=== PATIENT | male | born 1965 | race Caucasian/White ===

== ENCOUNTER 2020-03-01 08:46 | Outpatient (REF) | payer OTHER, SELFPAY ==
[2020-03-01 09:44] LABS: Estimated Average Glucose 126 mg/dL
[2020-03-01 10:00] LABS: Creatinine Urine 187.94 mg/dL
[2020-03-01 14:05] LABS: Alanine Aminotransferase 47 U/L (0-40); Albumin Level 4.6 g/dL (3.5-5.0); Alkaline Phosphatase 55 U/L (39-117); Anion Gap 12 (12-20); Aspartate Amino Transferase 25 U/L (5-37); Bilirubin Total 1.5 mg/dL (0.0-1.0); Blood Urea Nitrogen 15 mg/dL (9-16); Calcium 8.8 mg/dL (8.4-10.2); Carbon Dioxide 26 mmol/L (22-29); Chloride 104 mmol/L (96-108); Estimated Glomerular Filt Rate > 60; Glucose Fasting 126 mg/dL (60-99); Potassium 4.2 mmol/l (3.3-5.1); Sodium 138 mmol/L (135-145); Total Protein 7.4 g/dL (6.5-8.0)
[2020-03-01 14:27] LABS: Free T4 (Free Thyroxine) 1.05 ng/dL (0.71-1.85); Thyroid Stimulating Hormone 6.65 uIU/mL (0.32-4.0)
== END 2020-03-01 08:47 | disposition home or self-care (01) ==
LOC: HO.10HDL 08:46
PROVIDERS: PCP Internal Medicine; Visit Provider Internal Medicine
DX: E11.65 Type 2 diabetes mellitus with hyperglycemia (principal); E03.9 Hypothyroidism, unspecified
CPT/HCPCS: 80053; 82043; 83036; 84439; 84443

== ENCOUNTER 2020-06-02 08:40 | Outpatient (REF) | payer OTHER, SELFPAY ==
[2020-06-02 10:13] LABS: MANUAL DIFF FLAG NO
[2020-06-02 10:18] LABS: Basophils Percent Auto 0.3 % (0-2); Eosinophils Absolute Auto 0.2 X10*3/uL (0.0-0.4); Eosinophils Percent Auto 3.2 % (0-4); Hemoglobin 14.2 g/dl (14.0-18.0); Imm Gran Abs Auto 0.03 X10*3/uL (0.00-0.03); Imm Gran Pct Auto 0.5 % (0.0-0.4); Lymphocytes Percent Auto 31.4 % (20-40); Mean Corpuscular HGB Conc 33.8 g/dl (31.0-36.0); Mean Corpuscular Volume 82.7 fL (80-98); Mean Platelet Volume 10.3 fL (9.4-12.4); Monocytes Absolute Auto 0.4 X10*3/uL (0.1-1.2); Neutrophils Absolute Auto 3.6 X10*3/uL (2.0-8.3); Neutrophils Percent Auto 57.6 % (45-73); Platelet Count 181 X10*3/uL (160-400); Red Blood Count 5.08 X10*6/uL (4.60-5.80); Red Cell Distribution Width 12.3 % (11.0-16.0); White Blood Count 6.3 X10*3/uL (4.8-10.8)
[2020-06-02 10:28] LABS: Estimated Average Glucose 128 mg/dL; Hemoglobin A1c % 6.1 %
[2020-06-02 10:51] LABS: Alanine Aminotransferase 42 U/L (0-40); Albumin Level 4.2 g/dL (3.5-5.0); Alkaline Phosphatase 62 U/L (39-117); Anion Gap 12 (12-20); Aspartate Amino Transferase 22 U/L (5-37); Blood Urea Nitrogen 22 mg/dL (9-16); Calcium 8.8 mg/dL (8.4-10.2); Carbon Dioxide 24 mmol/L (22-29); Chloride 106 mmol/L (96-108); Cholesterol 156 mg/dL; Estimated Glomerular Filt Rate > 60; Glucose Fasting 155 mg/dL (60-99); HDL Cholesterol 26 mg/dL; LDL Cholesterol Calculated 63 mg/dl; Potassium 4.2 mmol/L (3.3-5.1); Sodium 138 mmol/L (135-145); Total Protein 7.1 g/dL (6.5-8.0); Triglycerides 338 mg/dL
[2020-06-02 11:13] LABS: Free T4 (Free Thyroxine) 0.84 ng/dL (0.71-1.85); Prostate Specific Antigen Scr 0.82 ng/mL (<0.05-4.0)
[2020-06-02 11:31] LABS: Creatinine Urine 113.89 mg/dL; Microalbum/Creatinine Ratio Ur 12.2 ug/mg cr
== END 2020-06-02 08:41 | disposition home or self-care (01) ==
LOC: HO.10HDL 08:40
PROVIDERS: Visit Provider Internal Medicine
DX: Z00.00 Encounter for general adult medical examination without abnormal findings (principal); E11.9 Type 2 diabetes mellitus without complications; E03.9 Hypothyroidism, unspecified; E78.00 Pure hypercholesterolemia, unspecified; R35.1 Nocturia; Z12.5 Encounter for screening for malignant neoplasm of prostate
CPT/HCPCS: 36415; 80053; 80061; 82043; 83036; 84153; 84439; 84443; 85025

== ENCOUNTER 2020-08-26 06:57 | Day surgery (SDC) | payer OTHER, SELFPAY ==
[2020-08-26 07:23] VITALS: BP 153/92; PULSE 94; RESP 16; TEMP 36.2; O2SAT 97; BMI 34.0
--- NOTE | 2020-08-26 07:36 | HO.ANESPROP2 ---
[facility] Past Medical History Medical History HTN (hypertension) Hyperthyroidism Type II diabetes mellitus Surgical History Surgical History History of tonsillectomy Social History Social History Patient Tobacco Use Status: Former Tobacco user Quit Date: 2000 Tobacco use type: Cigarette Years Smoked: 5 Smoked in Last 30 Days: No Use of substances other than those prescribed or required for medical reasons: No Are you DNR?: No Advance Directives: No Advance Directives Information Provided: Yes Meds Allergies Allergy/AdvReac Type Severity Reaction Status Date / Time cefepime [CEFEPIME] Allergy Severe HIVES Verified 08/26/20 07:18 daptomycin [DAPTOMYCIN] Allergy Severe pulmonary Verified 08/26/20 07:18 interstitial pneumonitis levofloxacin [LEVOFLOXACIN] Allergy Intermediate HIVES Verified 08/26/20 07:18 piperacillin [From ZOSYN] Allergy Unknown rash Verified 08/26/20 07:18 Sulfa (Sulfonamide Allergy Unknown UNKNOWN Verified 08/26/20 07:18 Antibiotics) [SULFA (SULFONAMIDE ANTIBIOTICS)] tazobactam [From ZOSYN] Allergy Unknown rash Verified 08/26/20 07:18 Home Medications Medication Instructions Recorded Confirmed Last Taken Type ammonium lactate appl TOPICAL BID 08/26/20 Unknown History blood sugar diagnostic [FreeStyle 08/26/20 08/26/20 Unknown History Lite Strips] insulin glargine [Lantus U-100 15 unit SUBCUT BEDTIME 08/26/20 08/26/20 Unknown History Insulin] insulin syringe-needle U-100 08/26/20 08/26/20 Unknown History insulin syringe-needle U-100 [Easy 08/26/20 08/26/20 Unknown History Touch Insulin Syringe] lancets [FreeStyle Lancets] 08/26/20 08/26/20 Unknown History levothyroxine 1 tab PO DAILY 08/26/20 08/26/20 Unknown History metformin 1 tab PO TID 08/26/20 08/26/20 Unknown History metformin 1 tab PO TID 08/26/20 08/26/20 Unknown History pravastatin 1 tab PO DAILY 08/26/20 08/26/20 Unknown History Exam Exam Date and Time: August 26, 2020 0736 Height,Weight and Vital Signs: Height 6 ft 2 in Weight 120.202 kg Last Vital Signs Temp 97.1 F 08/26/20 07:23 Pulse 94 08/26/20 07:23 Resp 16 08/26/20 07:23 BP 153/92 H 08/26/20 07:23 Pulse Ox 97 08/26/20 07:23 Airway Mallampati Class: III TM Dist: >3cm Neck ROM: Full Heart: RRR Lungs: Dara
[2020-08-26] MEDS: Lactated Ringers 500 ML 20 ML IVCONT (07:40)
[2020-08-26 08:28] LABS: Glucose, Whole Blood 137 mg/dL (60-115)
--- NOTE | 2020-08-26 09:37 | P.BOP_ITS ---
Brief Operative Note Date of Service: 08/26/20 Pre-op diagnosis: Screening Post-op diagnosis: other (Colon polyps, Int/Ext Hemorrhoids, Diverticulosis) Procedure: Colonoscopy to the cecum with biopsy and removal of polyps Surgeon: Casey Jaeger Anesthesia: MAC Was an Astronomy Professor used for this Procedure?: No Estimated blood loss (mL): 4.0 Pathology: other (A. Polyp at 50cm B. Polyp at 20cm) Condition: stable Disposition: PACU
[2020-08-26 09:39] VITALS: BP 104/56; PULSE 91; RESP 16; TEMP 36.2; O2SAT 97
--- NOTE | 2020-08-26 09:42 | HO.POSTANES ---
Post Anesthesia Evaluation Post Anesthesia Evaluation Vital Signs: Vital Signs Temp Pulse Resp BP Pulse Ox 08/26/20 09:39 97.1 F 91 16 104/56 L 97 08/26/20 07:23 97.1 F 94 16 153/92 H 97 Anesthesia: Monitored Mental Status: Awake Pain Control: Satisfactory Nausea/Vomiting: None Hydration: Adequate Anesthesia-Related Issues: No Anes. Related Issues
[2020-08-26 09:55] VITALS: BP 135/86; PULSE 77; RESP 16; TEMP 36.7; O2SAT 100
--- NOTE | 2020-08-26 20:17 | OP_ITS ---
SURGEON: Casey Jaeger MD INDICATIONS: The patient presents for evaluation of colorectal cancer screening. Full consent obtained from him for this, including risks of bleeding and perforation. PREOPERATIVE DIAGNOSIS: Colorectal cancer screening. POSTOPERATIVE DIAGNOSIS: Colorectal cancer screening, small colon polyps, diverticulosis, internal and external hemorrhoids. PROCEDURE PERFORMED: Colonoscopy to cecum with biopsy and removal of polyps. ESTIMATED BLOOD LOSS: COMPLICATIONS: ANESTHESIA: Monitored anesthesia care. ASSISTANTS: SPECIMENS: DESCRIPTION OF PROCEDURE: The patient was placed in the left lateral decubitus position. The digital rectal exam revealed some external hemorrhoidal tissue as well as what appeared to be a somewhat prolapsing internal hemorrhoid. The Olympus video pediatric colonoscope was entered into the rectum and advanced easily to the cecum. Once in the cecum, I did identify normal-appearing cecal pouch with appendiceal orifice and a normal-appearing ileocecal valve. The entire cecum and ileocecal valve appeared normal. The scope was slowly withdrawn assessing all mucosal surfaces carefully. Preparation was excellent. At 50 and at 20 cm, were flat approximately 5 mm polyps, which were each biopsied and completely removed with cold biopsy forceps. I did not visualize any other polyps, colitis, or angiodysplasia. There was a mild amount of sigmoid diverticulosis. In the rectum, scope was retroflexed visualizing minimal internal hemorrhoids, but no other pathology. The scope was straightened and withdrawn from the patient. He tolerated the procedure well and was returned to the recovery area in stable condition. IMPRESSION: 1. Small colon polyp, status post biopsy removal. 2. Mild diverticulosis. 3. Internal and external hemorrhoids. PLAN: The results of the biopsy will be checked. If these are tubular adenomas, I would recommend a followup colonoscopy in 5 years. If they are both hyperplastic, I would recommend a followup colonoscopy in 10 years. At this point, he does not describe any complaints in regard to the hemorrhoids, but if they do become symptomatic, I would then recommend a referral to Dr. Fortune for further evaluation and treatment. MD CARLIE Vargas/RICHARDL / [id number]
== END 2020-08-26 11:20 | disposition home or self-care (01) ==
PROVIDERS: PCP Internal Medicine; Visit Provider Internal Medicine
PROC: 0DJD8ZZ Inspection of Lower Intestinal Tract, Via Natural or Artificial Opening Endoscopic (ICD-10-PCS; CPT 45378; principal; 2020-08-26 08:20)
DX: Z12.11 Encounter for screening for malignant neoplasm of colon (principal); K63.5 Polyp of colon; K57.30 Diverticulosis of large intestine without perforation or abscess without bleeding; K64.8 Other hemorrhoids; K64.4 Residual hemorrhoidal skin tags; I10 Essential (primary) hypertension; E05.90 Thyrotoxicosis, unspecified without thyrotoxic crisis or storm; E11.9 Type 2 diabetes mellitus without complications; Z79.4 Long term (current) use of insulin; Z79.899 Other long term (current) drug therapy; Z88.8 Allergy status to other drugs, medicaments and biological substances; Z88.2 Allergy status to sulfonamides; Z87.891 Personal history of nicotine dependence
CPT/HCPCS: 45380; 82947; 88305

== ENCOUNTER 2020-11-29 09:51 | Outpatient (REF) | payer OTHER, SELFPAY ==
[2020-11-29 10:29] LABS: MANUAL DIFF FLAG NO
[2020-11-29 10:35] LABS: Basophils Percent Auto 0.6 % (0-2); Eosinophils Absolute Auto 0.2 X10*3/uL (0.0-0.4); Eosinophils Percent Auto 3.3 % (0-4); Hematocrit 45.6 % (42-52); Hemoglobin 15.6 g/dl (14.0-18.0); Imm Gran Abs Auto 0.03 X10*3/uL (0.00-0.03); Imm Gran Pct Auto 0.5 % (0.0-0.4); Lymphocytes Absolute Auto 1.8 X10*3/uL (1.2-4.9); Lymphocytes Percent Auto 27.1 % (20-40); Mean Corpuscular HGB Conc 34.2 g/dl (31.0-36.0); Mean Corpuscular Hemoglobin 28.2 pg (27.0-33.0); Mean Corpuscular Volume 82.3 fL (80-98); Mean Platelet Volume 10.3 fL (9.4-12.4); Monocytes Absolute Auto 0.4 X10*3/uL (0.1-1.2); Monocytes Percent Auto 5.7 % (2-11); Neutrophils Absolute Auto 4.1 X10*3/uL (2.0-8.3); Neutrophils Percent Auto 62.8 % (45-73); Platelet Count 172 X10*3/uL (160-400); Red Blood Count 5.54 X10*6/uL (4.60-5.80); Red Cell Distribution Width 12.7 % (11.0-16.0); White Blood Count 6.5 X10*3/uL (4.8-10.8)
[2020-11-29 10:55] LABS: Estimated Average Glucose 131 mg/dL; Hemoglobin A1c % 6.2 %
[2020-11-29 11:18] LABS: Alanine Aminotransferase 35 U/L (0-40); Albumin Level 4.4 g/dL (3.5-5.0); Alkaline Phosphatase 57 U/L (39-117); Anion Gap 14 (12-20); Aspartate Amino Transferase 20 U/L (5-37); Bilirubin Total 1.3 mg/dL (0.0-1.0); Blood Urea Nitrogen 13 mg/dL (9-16); Calcium 8.9 mg/dL (8.4-10.2); Carbon Dioxide 21 mmol/L (22-29); Chloride 107 mmol/L (96-108); Cholesterol 185 mg/dL; Estimated Glomerular Filt Rate > 60; Glucose Fasting 130 mg/dL (60-99); HDL Cholesterol 40 mg/dL; LDL Cholesterol Calculated 102 mg/dl; Potassium 4.2 mmol/L (3.3-5.1); Sodium 138 mmol/L (135-145); Total Protein 7.1 g/dL (6.5-8.0); Triglycerides 215 mg/dL
[2020-11-29 11:29] LABS: Creatinine Urine 89.63 mg/dL; Microalbum/Creatinine Ratio Ur 22.3 ug/mg cr
[2020-11-29 11:41] LABS: Free T4 (Free Thyroxine) 1.01 ng/dL (0.71-1.85); Thyroid Stimulating Hormone 3.78 uIU/mL (0.32-4.0)
== END 2020-11-29 09:52 | disposition home or self-care (01) ==
LOC: HO.10HDL 09:51
PROVIDERS: Visit Provider Internal Medicine
DX: E11.9 Type 2 diabetes mellitus without complications (principal); E03.9 Hypothyroidism, unspecified; E78.5 Hyperlipidemia, unspecified
CPT/HCPCS: 36415; 80053; 80061; 82043; 83036; 84439; 84443; 85025

== ENCOUNTER 2021-04-10 10:28 | Outpatient (REF) | payer OTHER, SELFPAY ==
--- NOTE | ~2021-04-10 | XR_ITS ---
EXAMINATION: XR HAND, LEFT CLINICAL INFORMATION: Fall on ice. COMPARISON: None TECHNIQUE: PA, lateral, and oblique views of the left hand. FINDINGS: The bones and soft tissues are normal. No fracture. Alignment is anatomic. Joint spaces are maintained. No erosions or soft tissue calcifications. XR/XR hand LT min 3V IMPRESSION: Normal left hand.
== END 2021-04-10 10:29 | disposition home or self-care (01) ==
LOC: HO.XRAY 10:28
PROVIDERS: PCP Internal Medicine; Visit Provider Internal Medicine
DX: Z91.81 History of falling (principal)
CPT/HCPCS: 73130

== ENCOUNTER 2021-06-09 08:44 | Outpatient (REF) | payer OTHER, SELFPAY ==
[2021-06-09 09:07] LABS: MANUAL DIFF FLAG NO
[2021-06-09 09:36] LABS: Basophils Percent Auto 0.4 % (0-2); Eosinophils Absolute Auto 0.2 X10*3/uL (0.0-0.4); Eosinophils Percent Auto 2.5 % (0-4); Hemoglobin 15.6 g/dl (14.0-18.0); Imm Gran Abs Auto 0.06 X10*3/uL (0.00-0.03); Imm Gran Pct Auto 0.8 % (0.0-0.4); Lymphocytes Absolute Auto 2.1 X10*3/uL (1.2-4.9); Lymphocytes Percent Auto 28.9 % (20-40); Mean Corpuscular HGB Conc 33.2 g/dl (31.0-36.0); Mean Corpuscular Hemoglobin 27.6 pg (27.0-33.0); Mean Platelet Volume 10.1 fL (9.4-12.4); Monocytes Absolute Auto 0.5 X10*3/uL (0.1-1.2); Neutrophils Absolute Auto 4.4 x10*3/uL (2.0-8.3); Neutrophils Percent Auto 60.4 % (45-73); Platelet Count 185 X10*3/uL (160-400); Red Blood Count 5.66 X10*6/uL (4.60-5.80); Red Cell Distribution Width 12.7 % (11.0-16.0); White Blood Count 7.3 X10*3/uL (4.8-10.8)
[2021-06-09 10:05] LABS: Alanine Aminotransferase 40 U/L (0-40); Albumin Level 4.4 g/dL (3.5-5.0); Alkaline Phosphatase 66 U/L (39-117); Anion Gap 14 (12-20); Aspartate Amino Transferase 20 U/L (5-37); Bilirubin Total 1.3 mg/dL (0.0-1.0); Blood Urea Nitrogen 15 mg/dL (9-16); Calcium 9.4 mg/dL (8.4-10.2); Carbon Dioxide 22 mmol/L (22-29); Chloride 105 mmol/L (96-108); Estimated Glomerular Filt Rate > 60; Glucose Random 155 mg/dL (60-115); Potassium 4.4 mmol/L (3.3-5.1); Sodium 137 mmol/L (135-145); Total Protein 7.3 g/dL (6.5-8.0)
[2021-06-09 10:22] LABS: Creatinine Urine 177.75 mg/dL; Microalbum/Creatinine Ratio Ur 24.1 ug/mg cr
[2021-06-09 10:28] LABS: Free T4 (Free Thyroxine) 1.09 ng/dL (0.71-1.85); Thyroid Stimulating Hormone 5.19 uIU/mL (0.32-4.0)
[2021-06-09 10:29] LABS: Estimated Average Glucose 140 mg/dL; Hemoglobin A1c % 6.5 %
== END 2021-06-09 08:45 | disposition home or self-care (01) ==
LOC: HO.LAB 08:44
PROVIDERS: PCP Internal Medicine; Visit Provider Internal Medicine
DX: E03.9 Hypothyroidism, unspecified (principal); I10 Essential (primary) hypertension; E11.9 Type 2 diabetes mellitus without complications
CPT/HCPCS: 36415; 80053; 82043; 83036; 84439; 84443; 85025

== ENCOUNTER 2021-09-14 10:32 | Outpatient (REF) | payer OTHER, SELFPAY ==
[2021-09-14 12:24] LABS: Estimated Average Glucose 146 mg/dL; Hemoglobin A1c % 6.7 %
[2021-09-14 12:36] LABS: Alanine Aminotransferase 37 U/L (0-40); Albumin Level 4.6 g/dL (3.5-5.0); Alkaline Phosphatase 59 U/L (39-117); Anion Gap 15 (12-20); Aspartate Amino Transferase 21 U/L (5-37); Bilirubin Total 1.5 mg/dL (0.0-1.0); Blood Urea Nitrogen 15 mg/dL (9-16); Calcium 9.3 mg/dL (8.4-10.2); Carbon Dioxide 25 mmol/L (22-29); Chloride 104 mmol/L (96-108); Estimated Glomerular Filt Rate > 60; Glucose Random 145 mg/dL (60-115); Potassium 4.6 mmol/L (3.3-5.1); Sodium 139 mmol/L (135-145); Total Protein 7.5 g/dL (6.5-8.0)
[2021-09-14 12:46] LABS: Creatinine Urine 181.59 mg/dL; Microalbum/Creatinine Ratio Ur 27.5 ug/mg cr
[2021-09-14 12:48] LABS: Thyroid Stimulating Hormone 5.33 uIU/mL (0.32-4.0)
== END 2021-09-14 10:33 | disposition home or self-care (01) ==
LOC: HO.LAB 10:32
PROVIDERS: PCP Internal Medicine; Visit Provider Internal Medicine
DX: I10 Essential (primary) hypertension (principal); E11.9 Type 2 diabetes mellitus without complications; E03.9 Hypothyroidism, unspecified
CPT/HCPCS: 36415; 80053; 82043; 83036; 84439; 84443

== ENCOUNTER 2021-12-21 16:34 | Outpatient (REF) | payer OTHER, SELFPAY ==
[2021-12-21 18:02] LABS: Free T4 (Free Thyroxine) 1.13 ng/dL (0.71-1.85); Thyroid Stimulating Hormone 4.45 uIU/mL (0.32-4.0)
== END 2021-12-21 16:35 | disposition home or self-care (01) ==
LOC: HO.LAB 16:34
PROVIDERS: Visit Provider Internal Medicine
DX: E03.9 Hypothyroidism, unspecified (principal); E11.9 Type 2 diabetes mellitus without complications; I10 Essential (primary) hypertension
CPT/HCPCS: 36415; 84439; 84443

== ENCOUNTER 2022-03-20 13:55 | Outpatient (REF) | payer OTHER, SELFPAY ==
--- NOTE | ~2022-03-20 | XR_ITS ---
EXAMINATION: XR SINUS XR CHEST CLINICAL INFORMATION: Sinus pressure. Cough. COMPARISON: None TECHNIQUE: Sinus 5 views. Chest 2 views. FINDINGS: SINUS: There is normal aeration of paranasal sinuses without mucoperiosteal thickening or air-fluid levels. The bony sinus ortiz are intact. The mastoid sinuses are clear. CHEST: The lungs are well-expanded and clear. The heart size and pulmonary vascularity is normal. No gross bony abnormality seen. XR/XR chest 2V IMPRESSION: 1. Unremarkable sinus exam. 2. Unremarkable chest exam.
--- NOTE | ~2022-03-20 | XR_ITS ---
EXAMINATION: XR SINUS XR CHEST CLINICAL INFORMATION: Sinus pressure. Cough. COMPARISON: None TECHNIQUE: Sinus 5 views. Chest 2 views. FINDINGS: SINUS: There is normal aeration of paranasal sinuses without mucoperiosteal thickening or air-fluid levels. The bony sinus ortiz are intact. The mastoid sinuses are clear. CHEST: The lungs are well-expanded and clear. The heart size and pulmonary vascularity is normal. No gross bony abnormality seen. XR/XR sinus min 3V IMPRESSION: 1. Unremarkable sinus exam. 2. Unremarkable chest exam.
== END 2022-03-20 13:56 | disposition home or self-care (01) ==
LOC: HO.XRAY 13:55
PROVIDERS: PCP Internal Medicine; Visit Provider Internal Medicine
DX: R05.9 Cough, unspecified (principal); R09.89 Other specified symptoms and signs involving the circulatory and respiratory systems; R09.81 Nasal congestion
CPT/HCPCS: 70220; 71046

== ENCOUNTER 2022-07-03 10:06 | Outpatient (REF) | payer OTHER, SELFPAY ==
[2022-07-03 11:13] LABS: Anion Gap 13 (12-20); Blood Urea Nitrogen 17 mg/dL (9-16); Calcium 9.5 mg/dL (8.4-10.2); Carbon Dioxide 22 mmol/L (22-29); Chloride 105 mmol/L (96-108); Estimated Glomerular Filt Rate > 60; Glucose Random 217 mg/dL (60-115); Potassium 4.2 mmol/L (3.3-5.1); Sodium 136 mmol/L (135-145)
[2022-07-03 11:23] LABS: Estimated Average Glucose 154 mg/dL
[2022-07-03 11:35] LABS: Thyroid Stimulating Hormone 5.33 uIU/mL (0.32-4.0)
[2022-07-03 12:08] LABS: Creatinine Urine 134.57 mg/dL; Microalbum/Creatinine Ratio Ur 21.5 ug/mg cr
== END 2022-07-03 10:07 | disposition home or self-care (01) ==
LOC: HO.LAB 10:06
PROVIDERS: PCP Internal Medicine; Visit Provider Internal Medicine
DX: E11.9 Type 2 diabetes mellitus without complications (principal); E03.9 Hypothyroidism, unspecified
CPT/HCPCS: 36415; 80048; 82043; 83036; 84439; 84443

== ENCOUNTER 2022-10-24 13:52 | Outpatient (REF) | payer OTHER, SELFPAY ==
[2022-10-24 14:42] LABS: Estimated Average Glucose 146 mg/dL; Hemoglobin A1c % 6.7 % (<6.0)
[2022-10-24 16:22] LABS: Alanine Aminotransferase 36 U/L (0-40); Albumin Level 4.4 g/dL (3.5-5.0); Alkaline Phosphatase 52 U/L (39-117); Anion Gap 12 (12-20); Aspartate Amino Transferase 22 U/L (5-37); Bilirubin Total 1.5 mg/dL (0.0-1.0); Blood Urea Nitrogen 13 mg/dL (9-16); Calcium 9.7 mg/dL (8.4-10.2); Carbon Dioxide 25 mmol/L (22-29); Chloride 104 mmol/L (96-108); Estimated Glomerular Filt Rate > 60; Glucose Fasting 131 mg/dL (60-99); Potassium 3.9 mmol/L (3.3-5.1); Sodium 137 mmol/L (135-145); Total Protein 7.5 g/dL (6.5-8.0)
[2022-10-24 16:29] LABS: Free T4 (Free Thyroxine) 1.12 ng/dL (0.71-1.85); Thyroid Stimulating Hormone 5.39 uIU/mL (0.32-4.0)
== END 2022-10-24 13:53 | disposition home or self-care (01) ==
LOC: HO.LAB 13:52
PROVIDERS: PCP Internal Medicine; Visit Provider Internal Medicine
DX: E11.9 Type 2 diabetes mellitus without complications (principal); E03.9 Hypothyroidism, unspecified
CPT/HCPCS: 36415; 80053; 83036; 84439; 84443

== ENCOUNTER 2023-01-25 12:47 | Outpatient (REF) | payer OTHER, SELFPAY ==
[2023-01-25 13:00] LABS: MANUAL DIFF FLAG NO
[2023-01-25 13:14] LABS: Basophils Percent Auto 0.5 % (0-2); Eosinophils Absolute Auto 0.2 X10*3/uL (0.0-0.4); Eosinophils Percent Auto 3.5 % (0-4); Hematocrit 45.8 % (42.0-52.0); Hemoglobin 15.3 g/dl (14.0-18.0); Imm Gran Abs Auto 0.04 X10*3/uL (0.00-0.03); Imm Gran Pct Auto 0.6 % (0.0-0.4); Lymphocytes Percent Auto 32.7 % (20-40); Mean Corpuscular HGB Conc 33.4 g/dl (31.0-36.0); Mean Corpuscular Hemoglobin 27.1 pg (27.0-33.0); Mean Corpuscular Volume 81.2 fL (80.0-98.0); Mean Platelet Volume 10.2 fL (9.4-12.4); Monocytes Absolute Auto 0.4 X10*3/uL (0.1-1.2); Monocytes Percent Auto 5.8 % (2-11); Neutrophils Absolute Auto 3.5 x10*3/uL (2.0-8.3); Neutrophils Percent Auto 56.9 % (45-73); Platelet Count 169 X10*3/uL (160-400); Red Blood Count 5.64 X10*6/uL (4.60-5.80); Red Cell Distribution Width 12.9 % (11.0-16.0); White Blood Count 6.2 X10*3/uL (4.8-10.8)
[2023-01-25 13:40] LABS: Estimated Average Glucose 163 mg/dL; Hemoglobin A1c % 7.3 % (<6.0)
[2023-01-25 13:43] LABS: Appearance Urine Clear; Color Urine Yellow; Glucose Urine UA Negative (Negative); Leukocyte Esterase Urine Negative (Negative); Nitrite Urine Negative (Negative); PH 5.5 (5.0-9.0); Urine Blood Negative (Negative); Urine Ketones Negative (Negative); Urine Protein Negative (Neg-Trace)
[2023-01-25 13:56] LABS: Alanine Aminotransferase 38 U/L (0-40); Albumin Level 4.5 g/dL (3.5-5.0); Alkaline Phosphatase 62 U/L (39-117); Anion Gap 15 (12-20); Aspartate Amino Transferase 23 U/L (5-37); Bilirubin Total 1.2 mg/dL (0.0-1.0); Blood Urea Nitrogen 13 mg/dL (9-16); Calcium 9.7 mg/dL (8.4-10.2); Carbon Dioxide 23 mmol/L (22-29); Chloride 106 mmol/L (96-108); Cholesterol 186 mg/dL (<200); Estimated Glomerular Filt Rate > 60; Glucose Fasting 162 mg/dL (60-99); HDL Cholesterol 36 mg/dL (>40); LDL Cholesterol Calculated 101 mg/dL (<100); Potassium 4.3 mmol/L (3.3-5.1); Sodium 140 mmol/L (135-145); Total Protein 7.8 g/dL (6.5-8.0); Triglycerides 245 mg/dL (<150)
[2023-01-25 14:01] LABS: Free T4 (Free Thyroxine) 1.03 ng/dL (0.71-1.85); Prostate Specific Antigen Scr 0.99 ng/mL (<0.05-4.0); Thyroid Stimulating Hormone 6.85 uIU/mL (0.32-4.0)
[2023-01-25 15:10] LABS: Creatinine Urine 136.83 mg/dL; Microalbum/Creatinine Ratio Ur 29.9 ug/mg cr (<30)
== END 2023-01-25 12:48 | disposition home or self-care (01) ==
LOC: HO.LAB 12:47
PROVIDERS: PCP Internal Medicine; Visit Provider Internal Medicine
DX: Z12.5 Encounter for screening for malignant neoplasm of prostate (principal); E11.9 Type 2 diabetes mellitus without complications; E78.00 Pure hypercholesterolemia, unspecified; E03.9 Hypothyroidism, unspecified; R35.1 Nocturia
CPT/HCPCS: 36415; 80053; 80061; 81003; 82043; 82570; 83036; 84153; 84439; 84443; 85025

== ENCOUNTER 2023-04-27 10:25 | Outpatient (REF) | payer OTHER, SELFPAY ==
[2023-04-27 11:23] LABS: Estimated Average Glucose 171 mg/dL; Hemoglobin A1c % 7.6 % (<6.0)
[2023-04-27 11:53] LABS: Anion Gap 15 (12-20); Blood Urea Nitrogen 18 mg/dL (9-16); Calcium 9.3 mg/dL (8.4-10.2); Carbon Dioxide 23 mmol/L (22-29); Chloride 103 mmol/L (96-108); Estimated Glomerular Filt Rate > 60; Glucose Random 210 mg/dL (60-115); Potassium 4.2 mmol/L (3.3-5.1); Sodium 137 mmol/L (135-145)
[2023-04-27 12:10] LABS: Free T4 (Free Thyroxine) 0.89 ng/dL (0.71-1.85)
== END 2023-04-27 10:26 | disposition home or self-care (01) ==
LOC: HO.LAB 10:25
PROVIDERS: PCP Internal Medicine; Visit Provider Internal Medicine
DX: E03.9 Hypothyroidism, unspecified (principal); E11.9 Type 2 diabetes mellitus without complications
CPT/HCPCS: 36415; 80048; 83036; 84439; 84443

== ENCOUNTER 2023-07-04 14:57 | Outpatient (REF) | payer OTHER, SELFPAY ==
[2023-07-04 17:06] LABS: Influenza A PCR NEGATIVE (Negative); Influenza B PCR NEGATIVE (Negative); Resp Syncy Virus RNA Qual PCR NEGATIVE (Negative); SARS COV2 PCR INHOUSE NEGATIVE (Negative)
== END 2023-07-04 14:58 | disposition home or self-care (01) ==
LOC: HO.LNP 14:57
PROVIDERS: Visit Provider Internal Medicine
DX: R50.9 Fever, unspecified (principal); R52 Pain, unspecified
CPT/HCPCS: 0241U

== ENCOUNTER 2023-07-05 13:20 | Outpatient (REF) | payer OTHER, SELFPAY ==
--- NOTE | ~2023-07-05 | US_ITS ---
EXAMINATION: US VENOUS ULTRASOUND WITH DOPPLER LOWER EXTREMITY, RIGHT CLINICAL INFORMATION: Pain and swelling COMPARISON: None available. TECHNIQUE: Ultrasound of the deep veins is performed from the hip to the calf with compression sonography and color and pulse Doppler assessment. Spectral analysis with color-flow imaging is performed. FINDINGS: There is normal venous compression and respiratory variation and augmented flow. The visualized common femoral vein, superficial femoral vein, profunda femoral vein, popliteal vein, and the trifurcation region shows no evidence of deep venous thrombosis. There is no significant popliteal fossa cyst. Prominent right groin lymph node. This is normal ultrasound morphology and flow. US/US venous duplex LE RT IMPRESSION: No DVT demonstrated in the right lower extremity.
== END 2023-07-05 13:21 | disposition home or self-care (01) ==
LOC: HO.US 13:20
PROVIDERS: PCP Internal Medicine; Visit Provider Internal Medicine
DX: M79.604 Pain in right leg (principal); R22.43 Localized swelling, mass and lump, lower limb, bilateral
CPT/HCPCS: 93971

== ENCOUNTER 2023-07-06 02:27 | Emergency (ER) | payer OTHER, SELFPAY ==
--- NOTE | ~2023-07-06 | XR_ITS ---
EXAMINATION: XR FOOT, RIGHT CLINICAL INFORMATION: Great toe injury, existing cellulitis COMPARISON: 09/08/2018 TECHNIQUE: AP, lateral, and oblique views of the right foot. FINDINGS: In comparison to 09/08/2018, there is now loss of the arch with midfoot collapse on the lateral view. The navicular and cuneiforms are not discretely marginated, with generalized hypertrophic bone formation in the midfoot. No discrete fracture is seen. Posterior calcaneal spurring is noted. There is suspected soft tissue swelling of the first digit. Questionable dorsal soft tissue defect overlying the first distal phalanx. Dorsal soft tissue swelling noted along the foot. XR/XR foot RT 2V IMPRESSION: 1. Soft tissue swelling of the first digit, with questionable dorsal soft tissue defect overlying the first distal phalanx. No discrete fracture identified. 2. Interval development of midfoot collapse with loss of the arch and generalized hypertrophic bone formation in the midfoot. Appearance suggests sequelae of Charcot foot in the proper clinical setting.
[2023-07-06 02:28] VITALS: BP 178/97; PULSE 129; RESP 18; TEMP 37.3; O2SAT 99; BMI 36.6
[2023-07-06 02:58] LABS: MANUAL DIFF FLAG NO
[2023-07-06 02:59] LABS: Basophils Percent Auto 0.3 % (0-2); Eosinophils Absolute Auto 0.2 X10*3/uL (0.0-0.4); Eosinophils Percent Auto 1.8 % (0-4); Hematocrit 38.1 % (42.0-52.0); Hemoglobin 13.3 g/dl (14.0-18.0); Imm Gran Abs Auto 0.04 X10*3/uL (0.00-0.03); Imm Gran Pct Auto 0.4 % (0.0-0.4); Lymphocytes Absolute Auto 1.3 X10*3/uL (1.2-4.9); Lymphocytes Percent Auto 13.7 % (20-40); Mean Corpuscular HGB Conc 34.9 g/dl (31.0-36.0); Mean Corpuscular Hemoglobin 28.9 pg (27.0-33.0); Mean Corpuscular Volume 82.8 fL (80.0-98.0); Mean Platelet Volume 9.7 fL (9.4-12.4); Monocytes Absolute Auto 0.9 X10*3/uL (0.1-1.2); Monocytes Percent Auto 9.3 % (2-11); Neutrophils Absolute Auto 7.1 x10*3/uL (2.0-8.3); Neutrophils Percent Auto 74.5 % (45-73); Platelet Count 166 X10*3/uL (160-400); Red Cell Distribution Width 12.8 % (11.0-16.0); White Blood Count 9.6 X10*3/uL (4.8-10.8)
[2023-07-06 03:08] LABS: Lactic Acid 1.5 mmol/L (0.5-2.0)
[2023-07-06 03:13] LABS: Alanine Aminotransferase 32 U/L (0-40); Albumin Level 4.1 g/dL (3.5-5.0); Alkaline Phosphatase 66 U/L (39-117); Anion Gap 18 (12-20); Aspartate Amino Transferase 19 U/L (5-37); Bilirubin Total 1.6 mg/dL (0.0-1.0); Blood Urea Nitrogen 13 mg/dL (9-16); Calcium 9.8 mg/dL (8.4-10.2); Carbon Dioxide 20 mmol/L (22-29); Chloride 102 mmol/L (96-108); Creatinine Clr Calc Pharmacy 122.9; Estimated Glomerular Filt Rate > 60; Glucose Random 255 mg/dL (60-115); Potassium 3.9 mmol/L (3.3-5.1); Sodium 136 mmol/L (135-145); Total Protein 7.5 g/dL (6.5-8.0)
--- NOTE | 2023-07-06 03:37 | ED_ITS ---
HPI - Extremity Injury (Lower) General Chief Complaint: Extremity Injury, Lower Stated Complaint: R Foot pain Time Seen by Provider: 07/06/23 03:28 Source: patient Mode of arrival: ambulatory Limitations: no limitations History of Present Illness HPI Narrative: Patient comes to the emergency room complaining of an ulcer to the big toe plantar aspect of the right foot. Patient states that it has been hurting for about 5 days, today he noted the ulcer. Patient states that he has osteomyelitis in the past and therefore decided to come to the emergency room to get it checked out. Before coming in here, the patient called his microsoft infrastructure consultant who prescribed doxycycline. Patient has had only 1 dose so far. Patient states that he has decreased sensation in his feet. No issues with the left foot. Related Data Home Medications ?Medication ?Instructions ?Recorded ?Confirmed ammonium lactate 12 % topical cream appl topical BID 08/26/20 blood sugar diagnostic (FreeStyle 08/26/20 08/26/20 Lite Strips) insulin glargine 100 unit/mL 15 unit subcut BEDTIME 08/26/20 08/26/20 subcutaneous solution (Lantus U-100 Insulin) insulin syringe-needle U-100 0.5 08/26/20 08/26/20 mL 30 gauge x 5/16 insulin syringe-needle U-100 0.5 08/26/20 08/26/20 mL 30 gauge x 5/16 (Easy Touch Insulin Syringe) lancets 28 gauge (FreeStyle 08/26/20 08/26/20 Lancets) levothyroxine 88 mcg tablet 1 tab PO DAILY 08/26/20 08/26/20 metformin 500 mg tablet 1 tab PO TID 08/26/20 08/26/20 metformin 500 mg tablet 1 tab PO TID 08/26/20 08/26/20 pravastatin 40 mg tablet 1 tab PO DAILY 08/26/20 08/26/20 Allergies Allergy/AdvReac Type Severity Reaction Status Date / Time cefepime [CEFEPIME] Allergy Severe HIVES Verified 07/06/23 02:37 daptomycin [DAPTOMYCIN] Allergy Severe pulmonary Verified 07/06/23 02:37 interstitial pneumonitis levofloxacin [LEVOFLOXACIN] Allergy Intermediate HIVES Verified 07/06/23 02:37 piperacillin [From ZOSYN] Allergy Unknown rash Verified 07/06/23 02:37 Sulfa (Sulfonamide Allergy Unknown UNKNOWN Verified 07/06/23 02:37 Antibiotics) [SULFA (SULFONAMIDE ANTIBIOTICS)] tazobactam [From ZOSYN] Allergy Unknown rash Verified 07/06/23 02:37 Review of Systems 2 Review of Systems: Constitutional : No Weight loss, No Fever, No Chills, No Night Sweats, No Fatigue, No Malaise ENT/Mouth : No Hearing loss, No Ear Pain, No Nasal Congestion, No Sinus Pain, No Hoarseness, No sore throat, No Rhinorrhea, No Swallowing Difficulty Eyes: No Eye Pain, No Swelling, No Redness, No Foreign Body, No Discharge, No Vision Changes Cardiovascular : No Chest Pain, No SOB, No Dyspnea on Exertion, No Orthopnea, No Edema, No Palpitations Respiratory : No Cough, No Sputum, No Wheezing, No Smoke Exposure, No Dyspnea Gastrointestinal : No Nausea, No Vomiting, No Diarrhea, No Constipation, No abdominal Pain, No Hematochezia, No Melena Genitourinary : no irregular bleeding, No Dysuria, No Urinary Frequency, No Hematuria, No Urinary Incontinence, No Urgency, No Flank Pain, No Urinary Flow Changes, No Hesitancy Musculoskeletal : No joint pain, No Myalgias, No Joint Swelling Skin : Complaining of an ulcer on the right foot great toe Neuro : No Weakness, No Numbness, No Paresthesias, No Loss of Consciousness, No Dizziness, No Headache Psych : No Anxiety/Panic, No Depression, No SI/HI/AH/VH, No Social Issues, Heme/Lymph: No Bruising, No Bleeding,No Lymphadenopathy Endocrine : No Polyuria, No Polydipsia, No Temperature Intolerance [facility] Past Medical History Medical History HTN (hypertension) Hyperthyroidism Type II diabetes mellitus Surgical History History of tonsillectomy Social History Social History Patient Tobacco Use Status: Former Tobacco user Quit Date: 2000 Tobacco use type: Cigarette Years Smoked: 5 Advance Directives: No Advance Directives Information Provided: Yes Do you have a plan to hurt others: No Plan Physical Exam 2 Vital Signs: Vital Signs: Last Vital Signs Temp 99.8 F 07/06/23 04:16 Pulse 100 07/06/23 04:16 Resp 18 07/06/23 04:16 BP 145/82 H 07/06/23 04:16 Pulse Ox 95 07/06/23 04:16 O2 Del Method Room Air 07/06/23 04:16 BMI result Body Mass Index 36.6 Const: Other: Appearance: Alert. Oriented X3. No acute distress. Eyes: Pupils equal, round and reactive to light. ENT: Pharynx normal. Neck: Normal inspection. Neck supple. No lymph nodes noted. No crepitus CVS: Normal heart rate and rhythm. Pulses normal. Normal S1 and S2 Respiratory: No respiratory distress. Breath sounds normal. No Wheezing. No rales Abdomen: Soft and nontender. No rigidity. No distention. Skin: Skin warm and dry. Normal skin color. Normal skin turgor. Extremities: In the great toe there are 2 calluses, 1 has a flap. When the flap is elevated, the skin underneath looks intact, no drainage. Neuro: Oriented X 3. No motor deficit. No sensory deficit. Moving all extremities. No slurred speech. CN 2 through 12 grossly intact Psych: calm, cooperative, normal affect Medical Decision Making Medical Decision Making MDM Narrative: -my interpretation of foot x-ray, no obvious signs of acute osteomyelitis. -my interpretation of labs: Normal hematology and chemistry. -patient is already on doxycycline. Ideally, patient should be on a 2nd antibiotics, but he is allergic pretty much everything else including cephalosporins, levofloxacin, sulfa antibiotics, daptomycin and tazobactam -Radiology report, no suspicion for osteomyelitis. -patient states that even with 1 dose of doxycycline, he starting to feel better, thinks that his toe is actually starting to look like swollen, less erythematous. -I discussed with the patient that we will send him home, patient has only had 1 dose of doxycycline so far. However, if patient does not improve over the next 24 hours anything does not look right on his foot before that, he needs to come back for admission. Patient agreeable with plan. At this time, patient has already picked up his medications, doxycycline. -patient states that he has not sure about them side effects of some of the antibiotics that he has been given. Discussed with the patient that it would be a good idea to go to his primary care physician and get a referral for an dispatcher street department to get tested to see what he is really allergic to , since these are good antibiotics that he may be able to use in the future Differential Diagnosis Differential Diagnoses: The differential diagnosis associated with the presentation includes (Cellulitis, osteomyelitis) Lab Data MDM Lab Attestation statement: I reviewed the patient's lab results. 07/06/23 02:51 07/06/23 02:51 Labs: Lab Results 07/06/23 Range/Units 02:51 WBC 9.6 (4.8-10.8) X10*3/uL RBC 4.60 (4.60-5.80) X10*6/uL Hgb 13.3 L (14.0-18.0) g/dl Hct 38.1 L (42.0-52.0) % MCV 82.8 (80.0-98.0) fL MCH 28.9 (27.0-33.0) pg MCHC 34.9 (31.0-36.0) g/dl RDW 12.8 (11.0-16.0) % Plt Count 166 (160-400) X10*3/uL MPV 9.7 (9.4-12.4) fL Immature Gran % (Auto) 0.4 (0.0-0.4) % Neut % (Auto) 74.5 H (45-73) % Lymph % (Auto) 13.7 L (20-40) % Banks % (Auto) 9.3 (2-11) % Eos % (Auto) 1.8 (0-4) % Baso % (Auto) 0.3 (0-2) % Lymph # (Auto) 1.3 (1.2-4.9) X10*3/uL Banks # (Auto) 0.9 (0.1-1.2) X10*3/uL Eos # (Auto) 0.2 (0.0-0.4) X10*3/uL Baso # (Auto) 0.0 (0.0-0.2) X10*3/uL Abs Immat Gran (auto) 0.04 H (0.00-0.03) X10*3/uL Absolute Neuts (auto) 7.1 (2.0-8.3) x10*3/uL Absolute Nucleated RBC 0.000 (0.0-0.012) X10*3/uL Nucleated RBC % (auto) 0.0 (0.0-0.2) /100WBC Sodium 136 (135-145) mmol/L Potassium 3.9 (3.3-5.1) mmol/L Chloride 102 (96-108) mmol/L Carbon Dioxide 20 L (22-29) mmol/L Anion Gap 18 (12-20) BUN 13 (9-16) mg/dL Creatinine 0.97 (0.5-1.4) mg/dL Estim Creat Clear Calc 122.9 Estimated GFR > 60 Random Glucose 255 H (60-115) mg/dL Lactic Acid 1.5 (0.5-2.0) mmol/L Calcium 9.8 (8.4-10.2) mg/dL Total Bilirubin 1.6 H (0.0-1.0) mg/dL AST 19 (5-37) U/L ALT 32 (0-40) U/L Alkaline Phosphatase 66 (39-117) U/L Total Protein 7.5 (6.5-8.0) g/dL Albumin 4.1 (3.5-5.0) g/dL Radiology Impression Discussion of test interpretation with radiology: I have reviewed the radiologist's reading. Radiologist Impression: In comparison to 09/08/2018, there is now loss of the arch with midfoot collapse on the lateral view. The navicular and cuneiforms are not discretely marginated, with generalized hypertrophic bone formation in the midfoot. No discrete fracture is seen. Posterior calcaneal spurring is noted. There is suspected soft tissue swelling of the first digit. Questionable dorsal soft tissue defect overlying the first distal phalanx. Dorsal soft tissue swelling noted along the foot. XR/XR foot RT 2V IMPRESSION: 1. Soft tissue swelling of the first digit, with questionable dorsal soft tissue defect overlying the first distal phalanx. No discrete fracture identified. 2. Interval development of midfoot collapse with loss of the arch and generalized hypertrophic bone formation in the midfoot. Appearance suggests sequelae of Charcot foot in the proper clinical setting. Discharge Plan Discharge Clinical Impression: Cellulitis of toe Patient Disposition: Home, Self-Care Instructions: Cellulitis (ED) Additional Instructions: Please follow-up with your primary care physician tomorrow. If you have any worsening or new symptoms, please return to the emergency room or call 911 Prescriptions: No Action metformin 500 mg tablet 1 tab PO TID metformin 500 mg tablet 1 tab PO TID Lantus U-100 Insulin 100 unit/mL solution 15 unit subcut BEDTIME pravastatin 40 mg tablet 1 tab PO DAILY (DME) FreeStyle Lite Strips Strip MISCELLANEOUS QID levothyroxine 88 mcg tablet 1 tab PO DAILY (DME) insulin syringe-needle U-100 0.5 mL 30 gauge x 5/16 syringe MISCELLANEOUS QID (DME) insulin syringe-needle U-100 [Easy Touch Insulin Syringe] 0.5 mL 30 gauge x 5/16 syringe MISCELLANEOUS QID ammonium lactate 12 % cream topical BID (DME) lancets [FreeStyle Lancets] 28 gauge misc topical QID Print Language: Barbadian
[2023-07-06 04:16] VITALS: BP 145/82; PULSE 100; RESP 18; TEMP 37.7; O2SAT 95
[2023-07-06 05:59] VITALS: BP 145/82; PULSE 100; RESP 18; TEMP 37.7; O2SAT 95
== END 2023-07-06 06:00 | disposition home or self-care (01) ==
PROVIDERS: Emergency Provider Emergency Medicine; PCP Internal Medicine
DX: L03.031 Cellulitis of right toe (principal); M79.674 Pain in right toe(s); E11.9 Type 2 diabetes mellitus without complications; I10 Essential (primary) hypertension; Z79.84 Long term (current) use of oral hypoglycemic drugs; Z79.4 Long term (current) use of insulin; Z79.899 Other long term (current) drug therapy
CPT/HCPCS: 36415; 73620; 80053; 83605; 85025; 87040; 99283; 99284

== ENCOUNTER 2023-07-17 15:03 | Outpatient (AMB) | payer OTHER, SELFPAY ==
--- NOTE | 2023-07-17 15:09 | MHC.OFFVIS ---
Vital Signs 07/17/23 15:41 Height 6 ft 2 in Weight 294 lb BMI 37.7 Pulse 102 H Pulse Source Pulse Oximeter Temp 97.9 F Temp Source Oral Pulse Oximetry (%) 96 Oxygen Delivery Method Room Air Intake Visit Reasons: [email or web address],cellulitis Allergies cefepime [CEFEPIME] Allergy (Severe, Verified 07/06/23 02:37) HIVES daptomycin [DAPTOMYCIN] Allergy (Severe, Verified 07/06/23 02:37) pulmonary interstitial pneumonitis levofloxacin [LEVOFLOXACIN] Allergy (Intermediate, Verified 07/06/23 02:37) HIVES piperacillin [From ZOSYN] Allergy (Unknown, Verified 07/06/23 02:37) rash Sulfa (Sulfonamide Antibiotics) [SULFA (SULFONAMIDE ANTIBIOTICS)] Allergy (Unknown, Verified 07/06/23 02:37) UNKNOWN tazobactam [From ZOSYN] Allergy (Unknown, Verified 07/06/23 02:37) rash piperacillin Allergy (Unknown, Uncoded 07/17/23 15:45) Unknown HPI HPI [email or web address] [email or web address],cellulitis: Details: He has right great toe redness. He has staph aureus,not MRSA. HE has OM first distal phalanx. PFSH Medical History Osteomyelitis HTN (hypertension) Hyperthyroidism Type II diabetes mellitus Surgical History History of tonsillectomy Social History Patient Tobacco Use Status: Former Tobacco user Quit Date: 2000 Tobacco use type: Cigarette Years Smoked: 5 Review of Systems Const All systems reviewed & are unremarkable except as noted in HPI and below Physical Exam Vital Signs: Last Vital Signs Temp 97.9 F 07/17/23 15:41 Pulse 102 H 07/17/23 15:41 Pulse Ox 96 07/17/23 15:41 Oxygen Delivery Method Room Air 07/17/23 15:41 BMI result Body Mass Index 37.7 Const General: cooperative Orientation/consciousness: patient oriented x3 HEENT Head: Yes normal to inspection Mouth: Normal oral and palatal mucosa present Eyes General: appearance normal, both eyes and all related structures Pupils: Equal, round and reactive pupils present Resp Effort & Inspection: normal respiratory effort Cardio Rate: regular rate Rhythm: regular rhythm GI Palpation (GI): Soft to palpation and nontender General: Yes no CVA tenderness Back/Spine/Pelvis Back: no CVA tenderness Skin General skin exam: no rashes or lesions noted Neuro General: patient oriented x3 Cranial nerves: Yes CN's II-XII intact bilaterally and Yes Equal, round and reactive pupils present Extrem General: Yes normal to inspection Psych Appearance: grossly normal Assessment & Plan Assessment & Plan (1) Osteomyelitis: Comment: He has staph and has responded to IV Ceftriaxone in past. Code(s): M86.9 - Osteomyelitis, unspecified Category: Medical Plan: 6 weeks IV Ceftriaxone. Weekly CBC and creatinine. See in followup Orders: Orders AMB Ceftriaxone Injection 07/17/23 M86.9 - Osteomyelitis, unspecified IR cvc insert peripheral 07/19/23 M86.9 - Osteomyelitis, unspecified Referrals Infusion Center Notification M86.9 - Osteomyelitis, unspecified Medications: New ceftriaxone 2 grams IV Q24H 1 ea 0RF M86.9 - Osteomyelitis, unspecified Coding Level of Care Code New Pt Level 3 (70145) Diagnoses Osteomyelitis M86.9
[2023-07-17 15:41] VITALS: PULSE 102; TEMP 36.6; O2SAT 96; BMI 37.7
== END 2023-07-17 16:52 | disposition home or self-care (01) ==
PROVIDERS: PCP Internal Medicine; Visit Provider Internal Medicine
DX: M86.9 Osteomyelitis, unspecified (principal)
CPT/HCPCS: 99203

== ENCOUNTER → 2023-07-17 15:03 | Outpatient (BNVA) | payer OTHER, SELFPAY | PROVIDERS: PCP Internal Medicine; Visit Provider Internal Medicine ==

== ENCOUNTER 2023-08-01 09:35 | Outpatient (REF) | payer OTHER, SELFPAY ==
--- NOTE | ~2023-08-01 | IR_ITS ---
CLINICAL HISTORY: IV antibiotics PROCEDURES: 1. Real-time ultrasound-guided access into the right brachial vein after documentation of selected vessel patency, and permanent imaging storing in the patient record. 2. Placement of a 5 fr 40 cm, dual lumen power PICC CLINICIANS: Bharat Arredondo PA-C MEDICATIONS: -Lidocaine 1% 10 mL SQ. -Antibiotics: None. Complications: None. Estimated blood loss: <5 ml Specimens: None. Contrast: None. Fluoroscopy time: 0.4 min Procedure note: The procedure, risks, benefits, and alternatives were carefully explained to the patient and written informed consent was obtained. The patient was placed supine on the fluoroscopy table. A timeout was performed. The right arm was prepped and draped in usual sterile fashion. Using ultrasound and fluoroscopic guidance, venous access was achieved into the brachial vein with a micropuncture set. A peel-away sheath was advanced over the wire. The 0.018 inch wire was advanced into the right atrium. A 5 fr, 40 cm, dual lumen power PICC was advanced over the wire, with its tip in the the caval atrial junction. The wire was removed. The catheter was tested and secured with a StatLock dressing. A permanent ultrasound image and chest fluoroscopic image was saved to PACS. The patient was stable after the procedure and was transferred to the floor. FINDINGS: 1. Patent right brachial vein 2. Placement of a 5 fr 40 cm, dual lumen power PICC IR/IR cvc insert peripheral IMPRESSION: Placement of a 5 fr 40 cm, dual lumen power PICC PLAN: -The catheter may be used immediately. This procedure was performed by Bharta Arredondo PA-C, and directly supervised by Dr. Larson
== END 2023-08-01 09:36 | disposition home or self-care (01) ==
LOC: HO.RADIR 09:35
PROVIDERS: PCP Internal Medicine; Visit Provider Internal Medicine
DX: M86.9 Osteomyelitis, unspecified (principal)
CPT/HCPCS: 36573

== ENCOUNTER → 2023-08-01 09:37 | Outpatient (BNV) | payer OTHER, SELFPAY | PROVIDERS: PCP Internal Medicine; Visit Provider Physician Assistant Surgical | DX: M86.9 Osteomyelitis, unspecified (principal) | CPT/HCPCS: 36573 ==

== ENCOUNTER 2023-08-09 14:14 | Outpatient (AMB) | payer OTHER, SELFPAY ==
[2023-08-09 14:22] VITALS: PULSE 96; TEMP 36.9; O2SAT 98; BMI 37.2
--- NOTE | 2023-08-09 14:22 | A.OFFVIS_ITS ---
Vital Signs 3 08/09/23 14:22 Height 6 ft 2 in Weight 290 lb BMI 37.2 Pulse 96 Pulse Source Pulse Oximeter Temp 98.4 F Temp Source Oral Pulse Oximetry (%) 98 Intake Visit Reasons: 1 week follow up piccline Allergies cefepime [CEFEPIME] Allergy (Severe, Verified 08/09/23 14:22) HIVES daptomycin [DAPTOMYCIN] Allergy (Severe, Verified 08/09/23 14:22) pulmonary interstitial pneumonitis levofloxacin [LEVOFLOXACIN] Allergy (Intermediate, Verified 08/09/23 14:22) HIVES piperacillin [From ZOSYN] Allergy (Unknown, Verified 08/09/23 14:22) rash Sulfa (Sulfonamide Antibiotics) [SULFA (SULFONAMIDE ANTIBIOTICS)] Allergy (Unknown, Verified 08/09/23 14:22) UNKNOWN tazobactam [From ZOSYN] Allergy (Unknown, Verified 08/09/23 14:22) rash piperacillin Allergy (Unknown, Uncoded 07/17/23 15:45) Unknown HPI HPI 1 week follow up piccline: Details: He is feeling well. He is taking Ceftriaxone. [facility] Medical History Osteomyelitis HTN (hypertension) Hyperthyroidism Type II diabetes mellitus Surgical History History of tonsillectomy Social History Patient Tobacco Use Status: Former Tobacco user Tobacco use type: Cigarette Years Smoked: 5 Review of Systems Const All systems reviewed & are unremarkable except as noted in HPI and below Physical Exam Vital Signs: Last Vital Signs Temp 98.4 F 08/09/23 14:22 Pulse 96 08/09/23 14:22 Pulse Ox 98 08/09/23 14:22 BMI result Body Mass Index 37.2 Const Other: General: cooperative HEENT Head: Yes normal to inspection Face and sinus: Yes normal facial exam Mouth: Normal oral and palatal mucosa present Teeth and gingiva: dentition normal Eyes General: appearance normal, both eyes and all related structures Pupils: Equal, round and reactive pupils present Resp Effort & Inspection: normal respiratory effort Cardio Rate: regular rate Rhythm: regular rhythm GI Palpation (GI): Soft to palpation and nontender General: Yes no CVA tenderness Back/Spine/Pelvis Back: no CVA tenderness Skin General skin exam: no rashes or lesions noted Neuro General: moves all extremities Cranial nerves: Yes Equal, round and reactive pupils present Extrem General: Yes normal to inspection Psych Appearance: grossly normal Assessment & Plan Assessment & Plan (1) Osteomyelitis: Comment: He has staph and has responded to IV Ceftriaxone in past. Code(s): M86.9 - Osteomyelitis, unspecified Category: Medical Plan: continue current medication would see in three weeks. Coding Level of Care Code Est Pt Level 3 (29528) Diagnoses Osteomyelitis M86.9
== END 2023-08-09 15:10 | disposition home or self-care (01) ==
LOC: HO.HID 14:14
PROVIDERS: PCP Internal Medicine; Visit Provider Internal Medicine
DX: M86.9 Osteomyelitis, unspecified (principal)
CPT/HCPCS: 99213

== ENCOUNTER → 2023-08-09 14:14 | Outpatient (BNVA) | payer OTHER, SELFPAY | PROVIDERS: PCP Internal Medicine; Visit Provider Internal Medicine ==

== ENCOUNTER 2023-08-30 13:15 | Outpatient (AMB) | payer OTHER, SELFPAY ==
[2023-08-30 13:46] VITALS: PULSE 96; TEMP 36.9; O2SAT 96; BMI 37.5
--- NOTE | 2023-08-30 13:46 | A.OFFVIS_ITS ---
Vital Signs 08/30/23 13:46 Height 6 ft 2 in Weight 292 lb BMI 37.5 Pulse 96 Pulse Source Pulse Oximeter Temp 98.5 F Temp Source Oral Pulse Oximetry (%) 96 Intake Visit Reasons: 3 week fu picc line iv Allergies cefepime [CEFEPIME] Allergy (Severe, Verified 08/30/23 13:47) HIVES daptomycin [DAPTOMYCIN] Allergy (Severe, Verified 08/30/23 13:47) pulmonary interstitial pneumonitis levofloxacin [LEVOFLOXACIN] Allergy (Intermediate, Verified 08/30/23 13:47) HIVES piperacillin [From ZOSYN] Allergy (Unknown, Verified 08/30/23 13:47) rash Sulfa (Sulfonamide Antibiotics) [SULFA (SULFONAMIDE ANTIBIOTICS)] Allergy (Unknown, Verified 08/30/23 13:47) UNKNOWN tazobactam [From ZOSYN] Allergy (Unknown, Verified 08/30/23 13:47) rash piperacillin Allergy (Unknown, Uncoded 07/17/23 15:45) Unknown HPI HPI 3 week fu picc line iv: Details: He has been feeling well. Foot looks improved. [facility] Medical History Osteomyelitis HTN (hypertension) Hyperthyroidism Type II diabetes mellitus Surgical History History of tonsillectomy Social History Patient Tobacco Use Status: Former Tobacco user Tobacco use type: Cigarette Years Smoked: 5 Review of Systems Const All systems reviewed & are unremarkable except as noted in HPI and below Physical Exam Vital Signs: Last Vital Signs Temp 98.5 F 08/30/23 13:46 Pulse 96 08/30/23 13:46 Pulse Ox 96 08/30/23 13:46 BMI result Body Mass Index 37.5 Const General: cooperative Orientation/consciousness: patient oriented x3 HEENT Head: Yes normal to inspection Mouth: Normal oral and palatal mucosa present Eyes General: appearance normal, both eyes and all related structures Pupils: Equal, round and reactive pupils present Resp Effort & Inspection: normal respiratory effort Cardio Rate: regular rate Rhythm: regular rhythm GI Palpation (GI): Soft to palpation and nontender General: Yes no CVA tenderness Back/Spine/Pelvis Back: no CVA tenderness Skin General skin exam: no rashes or lesions noted Neuro General: patient oriented x3 Cranial nerves: Yes CN's II-XII intact bilaterally and Yes Equal, round and reactive pupils present Extrem Other: foot better General: Yes normal to inspection Psych Appearance: grossly normal Assessment & Plan Assessment & Plan (1) Osteomyelitis: Comment: He has staph and has responded to IV Ceftriaxone in past. Code(s): M86.9 - Osteomyelitis, unspecified Category: Medical Plan: Finish Ceftriaxone six weeks. See us toward end. Coding Level of Care Code Est Pt Level 3 (51738) Diagnoses Osteomyelitis M86.9
== END 2023-08-30 14:31 | disposition home or self-care (01) ==
LOC: HO.HID 13:15
PROVIDERS: PCP Internal Medicine; Visit Provider Internal Medicine
DX: M86.9 Osteomyelitis, unspecified (principal)
CPT/HCPCS: 99213

== ENCOUNTER → 2023-08-30 13:15 | Outpatient (BNVA) | payer OTHER, SELFPAY | PROVIDERS: PCP Internal Medicine; Visit Provider Internal Medicine ==

== ENCOUNTER 2023-09-09 14:55 | Outpatient (REF) | payer OTHER, SELFPAY ==
[2023-09-09 15:00] LABS: MANUAL DIFF FLAG NO
[2023-09-09 15:14] LABS: Basophils Percent Auto 0.7 % (0-2); Eosinophils Absolute Auto 0.2 X10*3/uL (0.0-0.4); Eosinophils Percent Auto 2.7 % (0-4); Hematocrit 42.4 % (42.0-52.0); Hemoglobin 14.1 g/dl (14.0-18.0); Imm Gran Abs Auto 0.02 X10*3/uL (0.00-0.03); Imm Gran Pct Auto 0.3 % (0.0-0.4); Lymphocytes Absolute Auto 1.7 X10*3/uL (1.2-4.9); Lymphocytes Percent Auto 28.3 % (20-40); Mean Corpuscular HGB Conc 33.3 g/dl (31.0-36.0); Mean Corpuscular Hemoglobin 27.5 pg (27.0-33.0); Mean Corpuscular Volume 82.8 fL (80.0-98.0); Mean Platelet Volume 10.6 fL (9.4-12.4); Monocytes Absolute Auto 0.3 X10*3/uL (0.1-1.2); Monocytes Percent Auto 5.6 % (2-11); Neutrophils Absolute Auto 3.7 x10*3/uL (2.0-8.3); Neutrophils Percent Auto 62.4 % (45-73); Platelet Count 168 X10*3/uL (160-400); Red Blood Count 5.12 X10*6/uL (4.60-5.80); Red Cell Distribution Width 12.7 % (11.0-16.0); White Blood Count 5.9 X10*3/uL (4.8-10.8)
[2023-09-09 15:42] LABS: Estimated Glomerular Filt Rate > 60
[2023-09-09 16:09] LABS: Erythrocyte Sedimentation Rate 9 MM/HR (0-15)
== END 2023-09-09 14:56 | disposition home or self-care (01) ==
LOC: HO.LNP 14:55
PROVIDERS: Visit Provider Internal Medicine
DX: M86.9 Osteomyelitis, unspecified (principal)
CPT/HCPCS: 82565; 85025; 85652

== ENCOUNTER 2023-09-11 15:34 | Outpatient (AMB) | payer OTHER, SELFPAY ==
--- NOTE | 2023-09-11 15:47 | A.OFFVIS_ITS ---
Vital Signs 09/11/23 15:48 Height 6 ft 2 in Pulse 82 Pulse Source Pulse Oximeter Temp 98.2 F Temp Source Oral Pulse Oximetry (%) 98 Intake Visit Reasons: end of ceftriaxone picc line 42 day Allergies cefepime [CEFEPIME] Allergy (Severe, Verified 09/11/23 15:48) HIVES daptomycin [DAPTOMYCIN] Allergy (Severe, Verified 09/11/23 15:48) pulmonary interstitial pneumonitis levofloxacin [LEVOFLOXACIN] Allergy (Intermediate, Verified 09/11/23 15:48) HIVES piperacillin [From ZOSYN] Allergy (Unknown, Verified 09/11/23 15:48) rash Sulfa (Sulfonamide Antibiotics) [SULFA (SULFONAMIDE ANTIBIOTICS)] Allergy (Unknown, Verified 09/11/23 15:48) UNKNOWN tazobactam [From ZOSYN] Allergy (Unknown, Verified 09/11/23 15:48) rash piperacillin Allergy (Unknown, Uncoded 07/17/23 15:45) Unknown HPI HPI end of ceftriaxone picc line 42 day: Details: He is doing well He has closed area wound. [facility] Medical History Osteomyelitis HTN (hypertension) Hyperthyroidism Type II diabetes mellitus Surgical History History of tonsillectomy Social History Patient Tobacco Use Status: Former Tobacco user Tobacco use type: Cigarette Years Smoked: 5 Review of Systems Const All systems reviewed & are unremarkable except as noted in HPI and below Physical Exam Vital Signs: Last Vital Signs Temp 98.2 F 09/11/23 15:48 Pulse 82 09/11/23 15:48 Pulse Ox 98 09/11/23 15:48 Const General: cooperative HEENT Head: Yes normal to inspection Face and sinus: Yes normal facial exam Mouth: Normal oral and palatal mucosa present Teeth and gingiva: dentition normal Eyes General: appearance normal, both eyes and all related structures Pupils: Equal, round and reactive pupils present Resp Effort & Inspection: normal respiratory effort Cardio Rate: regular rate Rhythm: regular rhythm GI Palpation (GI): Soft to palpation and nontender General: Yes no CVA tenderness Back/Spine/Pelvis Back: no CVA tenderness Skin General skin exam: no rashes or lesions noted Neuro General: moves all extremities Cranial nerves: Yes Equal, round and reactive pupils present Extrem Other: healing foot wound Psych Appearance: grossly normal Assessment & Plan Assessment & Plan (1) Osteomyelitis: Comment: He has staph and has responded to IV Ceftriaxone in past. Code(s): M86.9 - Osteomyelitis, unspecified Category: Medical Plan Remove PICC line. Po antibiotics. Orders: Orders IR cvc remove any age 0709/11/23 M86.9 - Osteomyelitis, unspecified Medications: New doxycycline hyclate 100 mg PO BID 60 caps 0RF 30 days Coding Level of Care Code Est Pt Level 3 (48514) Diagnoses Osteomyelitis M86.9
[2023-09-11 15:48] VITALS: PULSE 82; TEMP 36.8; O2SAT 98
== END 2023-09-11 16:13 | disposition home or self-care (01) ==
LOC: HO.HID 15:34
PROVIDERS: PCP Internal Medicine; Visit Provider Internal Medicine
DX: M86.9 Osteomyelitis, unspecified (principal)
CPT/HCPCS: 99213

== ENCOUNTER → 2023-09-11 15:34 | Outpatient (BNVA) | payer OTHER, SELFPAY | PROVIDERS: PCP Internal Medicine; Visit Provider Internal Medicine ==

== ENCOUNTER 2023-11-06 16:38 | Outpatient (REF) | payer OTHER, SELFPAY ==
[2023-11-06 16:49] LABS: MANUAL DIFF FLAG NO
[2023-11-06 17:32] LABS: Basophils Percent Auto 0.6 % (0-2); Eosinophils Absolute Auto 0.2 X10*3/uL (0.0-0.4); Eosinophils Percent Auto 2.7 % (0-4); Hematocrit 43.9 % (42.0-52.0); Hemoglobin 14.5 g/dl (14.0-18.0); Imm Gran Abs Auto 0.02 X10*3/uL (0.00-0.03); Imm Gran Pct Auto 0.3 % (0.0-0.4); Lymphocytes Absolute Auto 1.9 X10*3/uL (1.2-4.9); Lymphocytes Percent Auto 28.4 % (20-40); Mean Corpuscular Hemoglobin 26.8 pg (27.0-33.0); Mean Platelet Volume 10.2 fL (9.4-12.4); Monocytes Absolute Auto 0.3 X10*3/uL (0.1-1.2); Monocytes Percent Auto 4.6 % (2-11); Neutrophils Absolute Auto 4.2 x10*3/uL (2.0-8.3); Neutrophils Percent Auto 63.4 % (45-73); Platelet Count 184 X10*3/uL (160-400); Red Blood Count 5.42 X10*6/uL (4.60-5.80); Red Cell Distribution Width 13.6 % (11.0-16.0); White Blood Count 6.6 X10*3/uL (4.8-10.8)
[2023-11-06 17:47] LABS: Alanine Aminotransferase 27 U/L (0-40); Albumin Level 4.4 g/dL (3.5-5.0); Alkaline Phosphatase 57 U/L (39-117); Anion Gap 14 (12-20); Aspartate Amino Transferase 14 U/L (5-37); Blood Urea Nitrogen 17 mg/dL (9-16); C Reactive Protein 0.14 mg/dL (< or = 0.50); Calcium 9.9 mg/dL (8.4-10.2); Carbon Dioxide 23 mmol/L (22-29); Chloride 105 mmol/L (96-108); Estimated Glomerular Filt Rate > 60; Glucose Random 283 mg/dL (60-115); Sodium 138 mmol/L (135-145); Total Protein 7.7 g/dL (6.5-8.0)
[2023-11-06 18:04] LABS: Thyroid Stimulating Hormone 5.04 uIU/mL (0.32-4.0)
[2023-11-07 07:28] LABS: Estimated Average Glucose 157 mg/dL; Hemoglobin A1c % 7.1 % (<6.0)
== END 2023-11-06 16:39 | disposition home or self-care (01) ==
LOC: HO.LAB 16:38
PROVIDERS: PCP Internal Medicine; Visit Provider Internal Medicine
DX: E11.9 Type 2 diabetes mellitus without complications (principal); I10 Essential (primary) hypertension; E03.9 Hypothyroidism, unspecified; M86.9 Osteomyelitis, unspecified
CPT/HCPCS: 36415; 80053; 83036; 84443; 85025; 86140

== ENCOUNTER 2023-11-15 13:50 | Outpatient (REF) | payer OTHER, SELFPAY ==
[2023-11-15 14:19] LABS: MANUAL DIFF FLAG NO
[2023-11-15 14:33] LABS: Basophils Percent Auto 0.6 % (0-2); Eosinophils Absolute Auto 0.2 X10*3/uL (0.0-0.4); Eosinophils Percent Auto 2.3 % (0-4); Hematocrit 44.4 % (42.0-52.0); Hemoglobin 15.1 g/dl (14.0-18.0); Imm Gran Abs Auto 0.04 X10*3/uL (0.00-0.03); Imm Gran Pct Auto 0.6 % (0.0-0.4); Lymphocytes Absolute Auto 1.8 X10*3/uL (1.2-4.9); Lymphocytes Percent Auto 25.1 % (20-40); Mean Corpuscular Hemoglobin 27.7 pg (27.0-33.0); Mean Corpuscular Volume 81.3 fL (80.0-98.0); Mean Platelet Volume 9.9 fL (9.4-12.4); Monocytes Absolute Auto 0.4 X10*3/uL (0.1-1.2); Monocytes Percent Auto 5.4 % (2-11); Neutrophils Absolute Auto 4.8 x10*3/uL (2.0-8.3); Platelet Count 185 X10*3/uL (160-400); Red Blood Count 5.46 X10*6/uL (4.60-5.80); Red Cell Distribution Width 13.6 % (11.0-16.0); White Blood Count 7.3 X10*3/uL (4.8-10.8)
[2023-11-15 14:41] LABS: Estimated Average Glucose 163 mg/dL; Hemoglobin A1c % 7.3 % (<6.0)
[2023-11-15 15:03] LABS: Alanine Aminotransferase 25 U/L (0-40); Albumin Level 4.5 g/dL (3.5-5.0); Alkaline Phosphatase 55 U/L (39-117); Anion Gap 15 (12-20); Aspartate Amino Transferase 16 U/L (5-37); Bilirubin Total 1.1 mg/dL (0.0-1.0); Blood Urea Nitrogen 17 mg/dL (9-16); Calcium 10.5 mg/dL (8.4-10.2); Carbon Dioxide 27 mmol/L (22-29); Chloride 104 mmol/L (96-108); Estimated Glomerular Filt Rate > 60; Glucose Random 187 mg/dL (60-115); Potassium 4.7 mmol/L (3.3-5.1); Sodium 141 mmol/L (135-145); Total Protein 7.7 g/dL (6.5-8.0)
[2023-11-15 15:18] LABS: Free T4 (Free Thyroxine) 0.91 ng/dL (0.71-1.85); Thyroid Stimulating Hormone 4.77 uIU/mL (0.32-4.0)
[2023-11-15 15:24] LABS: Vitamin B12 333 pg/mL (200-900)
== END 2023-11-15 13:51 | disposition home or self-care (01) ==
LOC: HO.LAB 13:50
PROVIDERS: PCP Internal Medicine; Visit Provider Internal Medicine
DX: E11.9 Type 2 diabetes mellitus without complications (principal); I10 Essential (primary) hypertension; E03.9 Hypothyroidism, unspecified
CPT/HCPCS: 36415; 80053; 82607; 83036; 84439; 84443; 85025

== ENCOUNTER → 2023-12-06 13:36 | Outpatient (REF) | payer OTHER, SELFPAY ==
--- NOTE | 2023-12-06 13:39 | CA_ITS ---
Transthoracic Echocardiogram Patient (Last, First, Middle): Ramiro Emery, Gender: Male Date of : 1965 Age: 58 Procedure Date: 12/06/2023 Procedure Type: Transthoracic Echocardiogram Location: OP Height: 187.96 cm Weight: 132.45 kg BSA: 2.55 m2 Heart Rate: 90 bpm Life Skills Coordinator Volunteer: SB Referring MD: Cedric Ridley MD Symptoms: I44.4 LEFT ANTERIOR FASCICULAR BLOCK Study Quality: Adequate ECG Rhythm: Sinus Conclusions: - Normal left ventricular cavity size. There is mildly increased left ventricular wall thickness. The left ventricular systolic function is hyperdynamic. The visually estimated ejection fraction is >70%. - E/E prime ratio is between 8 and 15 consistent with indeterminate filling pressures. - Normal right ventricular cavity size and systolic function. Findings Left Ventricle Normal left ventricular cavity size. There is mildly increased left ventricular wall thickness. The left ventricular systolic function is hyperdynamic. The visually estimated ejection fraction is >70%. There is no evidence of regional wall motion abnormalities. There is no dynamic left ventricular outflow tract obstruction. Abnormal diastolic function is noted. Spectral Doppler is indicative of an impaired relaxation filling pattern. E/E prime ratio is between 8 and 15 consistent with indeterminate filling pressures. Right Ventricle Normal right ventricular cavity size and systolic function. Atria Both atria are normal in size. Aortic Valve Normal aortic valve structure and function. There is no aortic valve stenosis. There is no aortic valve regurgitation. Mitral Valve The mitral valve appears normal. There is no mitral valve regurgitation. There is no mitral valve stenosis. Pulmonic Valve The pulmonic valve is likely normal. Tricuspid Valve Normal tricuspid valve structure. There is no tricuspid valve regurgitation. Great Vessels All visible segments of the aorta are normal in size. Venous The inferior vena cava is normal in size and collapses greater than 50% with inspiration. Pericardium/Pleural There is no evidence of pericardial effusion. Prior Study Comparison Changes noted compared to prior study dated: 09/09/2018. Hyperdynamic LV, indeterminate filling pressures. Measurements 2D Linear Measurements IVSd: 1.15 0.6-0.9/0.6-1.0 cm LVIDd: 4.07 3.9-5.3/4.2-5.9 cm LVIDd Index: 1.60 2.4-3.2/2.2-3.1 cm/m2 LVIDs: 2.59 2.0-3.6 cm LA Diam: 3.90 2.7-3.8/3.0-4.0 cm LAIDs Index: 1.53 1.5-2.3 cm/m2 LVOT Diam: 2.50 3.0+(-)1.3 cm 2D Systolic Function EF 4C: 51.10 >55% Mitral Valve MV Pk E: 0.80 MV PK A: 0.87 MV Decel Time: 256.00 E/A: 0.90 E'Lateral: 8.38 E'Medial: 5.11 E/E' Med: 15.70 E/E' Lat: 9.60 PHT: 75.00 MVA PHT: 2.93 Decel [place]: 3.13 Aortic Valve AoV Pk Gilberto: 1.63 AoV Mn Gilberto: 1.13 AoV VTI: 0.29 AoV Pk Grad: 11.00 Aov Mn Grad: 6.00 DAVI Cont.VTI: 3.49 LVOT LVOT Pk Gilberto: 1.12 LVOT Mn Gilberto: 0.83 LVOT VTI: 0.20 LVOT Pk Grad: 5.00 LVOT Mn Grad: 3.00 LVOT Diam: 2.50 LVOT Area: 4.91 Diastolic Function MV Pk E: 0.80 MV Pk A: 0.87 E/A: 0.90 E'Medial: 5.11 E/E' Med: 15.70 E' Laterial: 8.38 E/E' Lat: 9.60 Right Ventricle TAPSE (mm): 20.30 TVS' Gilberto: 8.59 Tricuspid Valve TR Pk Gilberto: 2.56 TR Pk Grad: 26.00 RA Press: 3.00 RVSP: 29.00 Great Vessels Aorta Sinus of Valsalva: 3.20 2.0-3.5 cm Ao Asc: 2.90 2.1-3.4 cm Ao Arch: 3.20 Pulmonary Valve PV Pk Gilberto: 1.09 Peak PV Grad: 5.00 Updated in Other Vendor System with Status of Final Mukesh Arriaga MD electronically signed on 12/09/2023 8:54:52 AM with status of Final
== END ==
LOC: HO.CARD 13:36
PROVIDERS: PCP Internal Medicine; Visit Provider Internal Medicine
DX: I44.4 Left anterior fascicular block (principal)
CPT/HCPCS: 93306

== ENCOUNTER → 2023-12-06 13:39 | Outpatient (BNV) | payer OTHER, SELFPAY | PROVIDERS: PCP Internal Medicine; Visit Provider Internal Medicine Cardiovascular Disease | DX: I51.89 Other ill-defined heart diseases (principal); I44.4 Left anterior fascicular block | CPT/HCPCS: 93306 ==

== ENCOUNTER 2024-02-12 13:41 | Outpatient (REF) | payer OTHER, SELFPAY ==
[2024-02-12 13:55] LABS: MANUAL DIFF FLAG NO
[2024-02-12 14:07] LABS: Basophils Percent Auto 0.6 % (0-2); Eosinophils Absolute Auto 0.2 X10*3/uL (0.0-0.4); Eosinophils Percent Auto 2.6 % (0-4); Hematocrit 45.8 % (42.0-52.0); Hemoglobin 15.4 g/dl (14.0-18.0); Imm Gran Abs Auto 0.03 X10*3/uL (0.00-0.03); Imm Gran Pct Auto 0.4 % (0.0-0.4); Lymphocytes Percent Auto 29.1 % (20-40); Mean Corpuscular HGB Conc 33.6 g/dl (31.0-36.0); Mean Corpuscular Hemoglobin 27.4 pg (27.0-33.0); Mean Corpuscular Volume 81.5 fL (80.0-98.0); Mean Platelet Volume 9.9 fL (9.4-12.4); Monocytes Absolute Auto 0.5 X10*3/uL (0.1-1.2); Monocytes Percent Auto 6.7 % (2-11); Neutrophils Absolute Auto 4.2 x10*3/uL (2.0-8.3); Neutrophils Percent Auto 60.6 % (45-73); Platelet Count 179 X10*3/uL (160-400); Red Blood Count 5.62 X10*6/uL (4.60-5.80); Red Cell Distribution Width 12.8 % (11.0-16.0); White Blood Count 6.9 X10*3/uL (4.8-10.8)
[2024-02-12 14:13] LABS: Estimated Average Glucose 180 mg/dL; Hemoglobin A1C 226.2883 umol/L; Hemoglobin A1c % 7.9 % (<6.0); Total Hemoglobin (HGBA1C) 3608.9223 umol/L
[2024-02-12 14:47] LABS: Creatinine Urine 79.38 mg/dL; Microalbum/Creatinine Ratio Ur 27.7 ug/mg cr (<30)
[2024-02-12 14:51] LABS: Alanine Aminotransferase 41 U/L (0-40); Albumin Level 4.7 g/dL (3.5-5.0); Alkaline Phosphatase 55 U/L (39-117); Anion Gap 13 (12-20); Aspartate Amino Transferase 27 U/L (5-37); Bilirubin Total 1.3 mg/dL (0.0-1.0); Blood Urea Nitrogen 15 mg/dL (9-16); Calcium 10.5 mg/dL (8.4-10.2); Carbon Dioxide 26 mmol/L (22-29); Chloride 103 mmol/L (96-108); Estimated Glomerular Filt Rate > 60; Glucose Random 156 mg/dL (60-115); Potassium 4.3 mmol/L (3.3-5.1); Sodium 138 mmol/L (135-145); Total Protein 8.2 g/dL (6.5-8.0)
[2024-02-12 15:08] LABS: Free T4 (Free Thyroxine) 1.19 ng/dL (0.71-1.85); Thyroid Stimulating Hormone 5.22 uIU/mL (0.32-4.0)
== END 2024-02-12 13:42 | disposition home or self-care (01) ==
LOC: HO.LAB 13:41
PROVIDERS: PCP Internal Medicine; Visit Provider Internal Medicine
DX: I10 Essential (primary) hypertension (principal); E03.9 Hypothyroidism, unspecified; E11.9 Type 2 diabetes mellitus without complications
CPT/HCPCS: 36415; 80053; 82043; 82570; 83036; 84439; 84443; 85025

== ENCOUNTER 2024-05-02 10:10 | Outpatient (REF) | payer OTHER, SELFPAY ==
--- OUTSIDE RECORDS SUMMARY | 2024-05-01 15:30 | XMS_ITS | Patient Health Record ---
[facility] Organization [facility] Address [address] [place] [address] Care Team Providers Care Boarder Machine Name Role Phone Cedric Ridley MD Primary Care Provider Cristela Jorgensen Unavailable [phone] Allergies Allergen (clinical drug ingredient) Drug/Non Drug Allergy documented on EMR Reaction Allergy Type Onset Date Status sulfamethoxazole / trimethoprim Bactrim Unknown Drug Allergy Active cefepime Cefepime HCl Unknown Drug Allergy Acti ve daptomycin Daptomycin Unknown Drug Allergy Activ e levofloxacin Levofloxacin Unknown Drug Allergy A ctive Piperacillin Sodium Unknown Drug Allergy Active piperacillin Piperacillin Unknown Drug Allergy A ctive Reason For Referral No Information Medications Medication SIG (Take, Route, Frequency, Duration) Notes Start Date End Date Status Doxycycline Hyclate 100 MG 1 capsule Orally Once a day for 10 day(s) 08/14/2022 Not-Taking Clindamy-Benzoyl Per-Niacinam Not-Taking Clindamycin HCl 300 MG 3 capsules Orally every 8 hrs Not-Taking Lantus 100 UNIT/ML Subcutaneous Active Losartan Potassium 50 MG 1 tablet Orally Once a day for 30 day(s) Active glipiZIDE XL 5 MG 1 tablet with food Orally Once a day for 30 day(s) Not-Taking Terazosin HCl 5 MG 1 capsule at bedtime Orally Once a day Active Extra Depth Orthopedic Shoes (1 Pair) [...] Deformity (M20.41,M20.42), Preulcerative Skin Lesion(s) (L85.1 Not-Taking Ciclopirox Olamine 0.77 % 1 application to affected area Externally to feet Twice a day for 30 days Not-Taking Cephalexin 500 MG 1 capsule Orally baldev ry 12 hrs for 10 day(s) Not-Taking Iodosorb 0.9 % as directed External ly Apply to ulceration daily with dry sterile dressing for 30 days 12/14/2022 Not-Taking HumaLOG 100 UNIT/ML SS as needed Subcutaneous PRN Active Pravastatin Sodium 40 MG 1 tablet Orally Once a day for 30 day(s) Active metFORMIN HCl 500 MG Orally 3 times a day Active glipiZIDE 5 MG 1 tablet 30 minutes before breakfast Orally Once a day for 30 day(s) Not-Kodi ing Augmentin 500-125 MG 1 tablet Orally baldev ry 12 hrs for 7 day(s) 07/15/2023 Not-Taking Ammonium Lactate 12 % 1 application Exte rnally Daily to both feet for 30 days 01/28/2024 Active Extra Depth Orthopedic Shoes (1 Pair) with Customized Heat Molded Multidensity Innersoles (3 Pair) as directed Dx: NIDDM/Polyneuropathy (E11.42), Hammertoe Foot Deformity (M20.41,M20.42), Preulcerative Skin Lesion(s) (L85.1 Active [facility] Skin Treatment 12 % 1 application Ex ternally Twice a day for 30 days Active Custom Orthotics as directed 01/15/2023 Active Extra [...] empty stomach Orally Once a day Active Immunizations Vaccine Route Administration Date Status Comme nts COVID-19 Moderna Vaccine Unknown 12/23/2020 Administered First Dose: 04/27/20 Second Dose: 05/25/2020 Influenza Unknown 11/03/2018 Administered Influenza Unknown 11/03/2019 Administered Influenza Unknown 11/15/2021 Administered Influenza Unknown 01/02/2023 Administered Social History Tobacco Use: Social History Observation Description Date Details (start date - stop date) Former Smoker NA - NA Tobacco Use/Smoking Question Answer Notes Are you a: former smoker Additional Findings: Tobacco Non-User Current no n-smoker Alcohol Screen Question Answer Notes Did you have a drink contain ing alcohol in the past year? Yes How often did you have a dri nk containing alcohol in the past year? Monthly or less (1 point) How often did you have 6 or more drinks on one occasion in the past year? Less than monthly (1 point) Points 2 Interpretation Negative Tobacco use other than smoking: Question Answer Notes Are you an other tobacco user? No Problems Problem Type SNOMED Code ICD Code Onset Dates Problem Status W/U Status Risk Notes Problem 47251026 Other hammer toe(s) (acquired), right foot (M20.41) Active confirmed Problem 41261737 Other hammer toe(s) (acquired), left foot (M20.42) Active confirmed Problem Polyneuropathy due to type 2 diabetes mellitus (084900587) Type 2 diabetes mellitus with diabetic polyneuropathy (E11.42) Active confirmed Problem 833334749 Hammer toe of left foot (M20.42) Active confirmed Problem 28648614 Non-pressure ulcer of right lower extremity, limited to breakdown of skin (L97.911) Active confirmed Problem 847349663 Charcot foot due to diabetes mellitus (E11.610) Active confirmed Problem Neuropathic ulcer of right foot with fat layer exposed (L97.512) Active confirmed Response to treatment Problem 45339424251523271 Neuropathic ulcer of right foot, limited to breakdown of skin (L97.511) Active confirmed Problem 585916240 Acute osteomyelitis of toe, right (M86.171) Active confirmed Vital Signs Height 6ft 2in in 01/24/2024 Weight 190 lbs 01/24/2024 BMI 24.39 kg/m2 01/24/2024 Encounters Encounter Location Date Provider Diagnosis [address] [address] 06/07/2023 Cristela Burnette Other hammer toe(s) (acquired), right foot M20.41 ; Other hammer toe(s) (acquired), left foot M20.42 ; Type 2 diabetes mellitus with diabetic polyneuropathy E11.42 ; Charcot foot due to diabetes mellitus E11.610 and Tinea unguium B35.[address] [address] 07/09/2023 Cristela Higha Neuropathic ulcer of right foot with fat layer exposed L97.512 ; Acute osteomyelitis of toe, right M86.171 ; Cellulitis of toe of right foot L03.031 ; Type 2 diabetes mellitus with diabetic polyneuropathy E11.42 and Charcot foot due to diabetes mellitus E11.[address] [address] 07/19/2023 Cristela Burnette Neuropathic ulcer of right foot with fat layer exposed L97.512 ; Acute osteomyelitis of toe, right M86.171 ; Cellulitis of toe of right foot L03.031 ; Type 2 diabetes mellitus with diabetic polyneuropathy E11.42 and Charcot foot due to diabetes mellitus E11.[address] [address] 08/06/2023 Cristela Perica Neuropathic ulcer of right foot with fat layer exposed L97.512 ; Acute osteomyelitis of toe, right M86.171 ; Type 2 diabetes mellitus with diabetic polyneuropathy E11.42 and Charcot foot due to diabetes mellitus E11.610 [facility] [address] [address] 09/06/2023 Cristela Burnette Type 2 diabetes mellitus with diabetic polyneuropathy E11.42 ; Acute osteomyelitis of toe, right M86.171 and Charcot foot due to diabetes mellitus E11.[address] [facility] [address] 10/23/2023 Cristela Burnette Other hammer toe(s) (acquired), right foot M20.41 ; Other hammer toe(s) (acquired), left foot M20.42 ; Type 2 diabetes mellitus with diabetic polyneuropathy E11.42 ; Charcot foot due to diabetes mellitus E11.610 and Tinea unguium B35.[address] [facility] [address] 01/24/2024 Cristela Burnette Other hammer toe(s) (acquired), right foot M20.41 ; Other hammer toe(s) (acquired), left foot M20.42 ; Type 2 diabetes mellitus with diabetic polyneuropathy E11.42 ; Charcot foot due to diabetes mellitus E11.610 ; Tinea unguium B35.1 and Abrasion of right foot, initial encounter S90.811A [facility] [address] 05/13/2023 Cristela Burnette [facility] [address] 07/09/2023 Cristela Higha [facility] [address] [address] 07/09/2023 Cristela Higha [facility] [address] [address] 07/09/2023 Cristela Perica [facility] [address] [address] 07/09/2023 Cristela Burnette [facility] [address] [address] 10/15/2023 Cristela Burnette [facility] [address] [address] 01/28/2024 Cristela Burnette Assessments Encounter Date Diagnosis (ICD Code) Assessment Notes Treatment Notes Treatment Clinical Notes Section Notes 06/07/2023 Other hammer toe(s) (acquired), right foot (ICD-10 - M20.41) 06/07/2023 Other hammer toe(s) (acquired), left foot (ICD-10 - M20.42) 07/09/2023 Neuropathic ulcer of right foot with fat layer exposed (ICD-10 - L97.512) Response to treatment Patient Educated with: WOUND CARE INSTRUCTIONS. pdf (WOUND CARE INSTRUCTIONS. pdf) 07/09/2023 Acute osteomyelitis of toe, right (ICD-10 - M86.171) 07/19/2023 Neuropathic ulcer of right foot with fat layer exposed (ICD-10 - L97.512) Response to treatment Patient Educated with: WOUND CARE INSTRUCTIONS. pdf (WOUND CARE INSTRUCTIONS. pdf) 08/06/2023 Neuropathic ulcer of right foot with fat layer exposed (ICD-10 - L97.512) Response to treatment Patient Educated with: WOUND CARE INSTRUCTIONS. pdf (WOUND CARE INSTRUCTIONS. pdf) 09/06/2023 Type 2 diabetes mellitus with diabetic polyneuropathy (ICD-10 - E11.42) 10/23/2023 Other hammer toe(s) (acquired), right foot (ICD-10 - M20.41) 01/24/2024 Other hammer toe(s) (acquired), right foot (ICD-10 - M20.41) 01/24/2024 Other hammer toe(s) (acquired), left foot (ICD-10 - M20.42) 01/24/2024 Type 2 diabetes mellitus with diabetic polyneuropathy (ICD-10 - E11.42) 10/23/2023 Other hammer toe(s) (acquired), left foot (ICD-10 - M20.42) 09/06/2023 Charcot foot due to diabetes mellitus (ICD-10 - E11.610) 09/06/2023 Acute osteomyelitis of toe, right (ICD-10 - M86.171) 08/06/2023 Acute osteomyelitis of toe, right (ICD-10 - M86.171) 07/09/2023 Cellulitis of toe of right foot (ICD-10 - L03.031) 07/19/2023 Acute osteomyelitis of toe, right (ICD-10 - M86.171) 08/06/2023 Type 2 diabetes mellitus with diabetic polyneuropathy (ICD-10 - E11.42) 06/07/2023 Type 2 diabetes mellitus with diabetic polyneuropathy (ICD-10 - E11.42) 06/07/2023 Charcot foot due to diabetes mellitus (ICD-10 - E11.610) 07/09/2023 Type 2 diabetes mellitus with diabetic polyneuropathy (ICD-10 - E11.42) 08/06/2023 Charcot foot due to diabetes mellitus (ICD-10 - E11.610) 07/19/2023 Cellulitis of toe of right foot (ICD-10 - L03.031) 01/24/2024 Charcot foot due to diabetes mellitus (ICD-10 - E11.610) 10/23/2023 Type 2 diabetes mellitus with diabetic polyneuropathy (ICD-10 - E11.42) 10/23/2023 Charcot foot due to diabetes mellitus (ICD-10 - E11.610) 01/24/2024 Tinea unguium (ICD-10 - B35.1) 07/19/2023 Type 2 diabetes mellitus with diabetic polyneuropathy (ICD-10 - E11.42) 06/07/2023 Tinea unguium (ICD-10 - B35.1) 07/09/2023 Charcot foot due to diabetes mellitus (ICD-10 - E11.610) 07/19/2023 Charcot foot due to diabetes mellitus (ICD-10 - E11.610) 01/24/2024 Abrasion of right foot, initial encounter (ICD-10 - S90.811A) 10/23/2023 Tinea unguium (ICD-10 - B35.1) 09/06/2023 Other Plan Of Treatment Pending Test Test Name Order Date MRI : Foot, right 07/09/2023 *Wound Culture 08/13/2022 X ray : Foot, right 3V 02/17/2019 X ray : Foot, right 3V 04/03/2022 X ray : Foot, right 3V 12/14/2022 X ray : Foot, right 3V 07/09/2023 [id number] SKIN/TISSUE 12/14/2022 [id number] OF HEMATOMA/FLUID 021 Next Appt Details Provider Name:Cristela Polanco Anila polanco, 06/01/2024 03:30:00 PM, [address], [place], [address], Insurance Providers Payer Name Payer Address Payer Phone Subscriber Number Group Number Insured Name Patient Relationship to Insured Coverage Start Date Coverage End Date [facility] [address] [place] [address] [phone] [id number] Ramiro Emery Self - patient is the insured Medical (General) History Medical History History ICD Code Diabetes mellitus Chicken pox Charcot right Pick line Surgical History Surgery Date(Month/Year) tonsillectomy tubes in ears colonoscopy wisdom teeth extraction Hospitalization History Reason Date(Month/Year) [facility] [place] antibiotic reaction 2018
--- OUTSIDE RECORDS SUMMARY | 2024-05-01 15:30 | XMS_ITS ---
Author Organization [facility] Address [address] [place] [address] Care Team Providers Care Air Route Controller Name Role Phone Cedric Ridley MD Primary Care Provider Unavaila Cristela James Unavailable [phone] Allergies Allergen (clinical drug ingredient) Drug/Non Drug [...] Once a day for 30 day(s) Not-Taking Extra Depth Orthopedic Shoes [...] a day for 30 day(s) Not-Kodi ing Ciclopirox Olamine 0.77 % 1 application to affected area Externally to feet Twice a day for 30 days Not-Taking Cephalexin 500 MG 1 capsule Orally baldev ry 12 hrs for 10 day(s) Not-Taking Iodosorb 0.9 % as directed External ly Apply to ulceration daily with dry sterile dressing for 30 days 12/14/2022 Not-Taking Doxycycline Hyclate 100 MG 1 capsule Orally Once a day for 10 day(s) 08/14/2022 Not-Taking Clindamy-Benzoyl Per-Niacinam Not-Taking Augmentin 500-125 MG 1 [...] Twice a day for 30 days Active Clindamycin HCl 300 MG [...] Once a day for 30 day(s) Active Lantus 100 UNIT/ML Subcutaneous Active Losartan Potassium 50 MG 1 tablet Orally Once a day for 30 day(s) Active Terazosin HCl 5 MG 1 capsule at bedtime Orally Once a day Active metFORMIN HCl 500 MG Orally 3 times a day Active HumaLOG 100 UNIT/ML SS as needed Subcutaneous PRN Active Encounters Encounter Location Date Provider Diagnosis [facility] [address] [place] [address] 04/24/2024 Cristela Burnette Plan Of Treatment Next Appt Details Provider Name:Cristela polanco, 06/01/2024 03:30:00 PM, [address] [place] [address], [phone], Progress Notes * Ramiro SNYDER FDOB:[birth year] (58 yo M)Acc No.[id number]:04/24/2024 Progress Note Patient:?SABRINARamiro CHRIS Daniella Provider:?Cristela Burnette DPM :[id number]???Age:58 Y???Sex:Male Darrel e:04/24/2024 Address:[address] [place], [place] [id number] Pcp:Cedric Ridley MD Subjective: * Chief Complaints: * ???1. Dr Carrasquillo. * Medical History:?Diabetes me llitus, Chicken pox, Charcot right, Pick line. * Medications:?Taking Terazosi n HCl 5 MG Capsule 1 capsule at [...] before breakfast Orally Once a day * Allergies:?Bactrim, Daptomyc in, Piperacillin Sodium, Cefepime HCl, Levofloxacin, Piperacillin. Objective: * Vitals:? Assessment: Plan: * Treatment: * Images: * The named appointment provid er may or may not be the originator of this progress note, and it is not deemed complete until electronically signed by the appointment provider. Sign off status: Pending * Provider:?Cristela Burnette DPM Date:? Generated for Cassi winchester/Gus/Babatunde on:?05/01/2024 03:30 PM EST
--- OUTSIDE RECORDS SUMMARY | 2024-05-01 15:30 | XMS_ITS ---
[facility] Organization [facility] Address [address] [place] [address] Care Team Providers Care Commercial Decorator Name Role Phone Cedric Ridley MD Primary Care Provider Unavaila Cristela James Unavailable [phone] Allergies Allergen (clinical drug ingredient) Drug/Non Drug Allergy documented on EMR Reaction Allergy Type Onset Date Status sulfamethoxazole / trimethoprim Bactrim Unknown Drug Allergy Active cefepime Cefepime HCl Unknown Drug Allergy Acti ve daptomycin Daptomycin Unknown Drug Allergy Activ e levofloxacin Levofloxacin Unknown Drug Allergy A ctive Piperacillin Sodium Unknown Drug Allergy Active piperacillin Piperacillin Unknown Drug Allergy A ctive REASON FOR VISIT Pcp- 04/27, At Risk Footcare, Toe Irritation Medications Medication SIG (Take, Route, Frequency, Duration) Notes Start Date End Date Status Extra Depth Orthopedic Shoes (1 Pair) with Customized Heat Molded Multidensity Innersoles (3 Pair) as directed Dx: NIDDM/Polyneuropathy (E11.42), Hammertoe Foot Deformity (M20.41,M20.42), Preulcerative Skin Lesion(s) (L85.1 Not-Taking glipiZIDE XL 5 MG 1 tablet with food Orally Once a day for 30 day(s) Not-Taking glipiZIDE 5 MG 1 tablet 30 minutes before breakfast Orally Once a day for 30 day(s) Not-[place] ing Extra Depth Orthopedic Shoes (1 Pair) with Customized Heat Molded Multidensity Innersoles (3 Pair) as directed Dx: NIDDM/Polyneuropathy (E11.42), Hammertoe Foot Deformity (M20.41,M20.42), Preulcerative Skin Lesion(s) (L85.1 07/26/2020 Not-Taking Extra Depth Orthopedic Shoes (1 Pair) with Customized Heat Molded Multidensity Innersoles (3 Pair) as directed Dx: NIDDM/Polyneuropathy (E11.42), Hammertoe Foot Deformity (M20.41,M20.42), Preulcerative Skin Lesion(s) (L85.1 07/18/2021 Not-Taking Doxycycline Hyclate 100 MG 1 capsule Orally Once a day for 10 day(s) 08/14/2022 Not-Taking Iodosorb 0.9 % as directed External ly Apply to ulceration daily with dry sterile dressing for 30 days 12/14/2022 Not-Taking Clindamy-Benzoyl Per-Niacinam Not-Taking Cephalexin 500 MG 1 capsule Orally baldev ry 12 hrs for 10 day(s) Not-Taking Ciclopirox Olamine 0.77 % 1 application to affected area Externally to feet Twice a day for 30 days Not-Taking Clindamycin HCl 300 MG 3 capsules Orally every 8 hrs Not-Taking Extra Depth Orthopedic Shoes (1 Pair) with Customized Heat Molded Multidensity Innersoles (3 Pair) as directed Dx: NIDDM/Polyneuropathy (E11.42), Hammertoe Foot Deformity (M20.41,M20.42), Preulcerative Skin Lesion(s) (L85.1 01/15/2023 Active Augmentin 500-125 MG 1 tablet Orally baldev ry 12 hrs for 7 day(s) 07/15/2023 Not-Taking Custom Orthotics as directed 01/15/2023 Active [facility] Skin Treatment 12 % 1 application Ex ternally Twice a day for 30 days Active metFORMIN HCl 500 MG Orally 3 times a day Active Pravastatin Sodium 40 MG 1 tablet Orally Once a day for 30 day(s) Active Levothyroxine Sodium 75 MCG 1 tablet in the morning on an empty stomach Orally Once a day Active Extra Depth Orthopedic Shoes (1 Pair) with Customized Heat Molded Multidensity Innersoles (3 Pair) as directed Dx: NIDDM/Polyneuropathy (E11.42), Hammertoe Foot Deformity (M20.41,M20.42), Preulcerative Skin Lesion(s) (L85.1 10/16/2022 Active Extra Depth Orthopedic Shoes (1 Pair) with Customized Heat Molded Multidensity Innersoles (3 Pair) as directed Dx: NIDDM/Polyneuropathy (E11.42), Hammertoe Foot Deformity (M20.41,M20.42), Preulcerative Skin Lesion(s) (L85.1 Active Lantus 100 UNIT/ML Subcutaneous Active HumaLOG 100 UNIT/ML SS as needed Subcutaneous PRN Active Terazosin HCl 5 MG 1 capsule at bedtime Orally Once a day Active Losartan Potassium 50 MG 1 tablet Orally Once a day for 30 day(s) Active Social History Tobacco Use: Social History Observation [...] Are you an other tobacco user? No Vital Signs Height 6ft 2in in 01/24/2024 Weight 190 lbs 01/24/2024 BMI 24.39 kg/m2 01/24/2024 Encounters Encounter Location Date Provider Diagnosis [facility] [address] [address] 01/24/2024 Cristela Burnette Other hammer toe(s) (acquired), right foot M20.41 ; Other hammer toe(s) (acquired), left foot M20.42 ; Type 2 diabetes mellitus with diabetic polyneuropathy E11.42 ; Charcot foot due to diabetes mellitus E11.610 ; Tinea unguium B35.1 and Abrasion of right foot, initial encounter S91.052R Assessments Encounter Date Diagnosis (ICD Code) Assessment Notes Treatment Notes Treatment Clinical Notes Section Notes 01/24/2024 Other hammer toe(s) (acquired), right foot (ICD-10 - M20.41) 01/24/2024 Other hammer toe(s) (acquired), left foot (ICD-10 - M20.42) 01/24/2024 Type 2 diabetes mellitus with diabetic polyneuropathy (ICD-10 - E11.42) 01/24/2024 Charcot foot due to diabetes mellitus (ICD-10 - E11.610) 01/24/2024 Tinea unguium (ICD-10 - B35.1) 01/24/2024 Abrasion of right foot, initial encounter (ICD-10 - S90.811A) Plan Of Treatment Medication Medication Name Sig Start Date Stop Date Notes Extra Depth Orthopedic Shoes (1 Pair) with Customized Heat Molded Multidensity Innersoles (3 Pair) as directed Dx: NIDDM/Polyneuropathy (E11.42), Hammertoe Foot Deformity (M20.41,M20.42), Preulcerative Skin Lesion(s) (L85.1 Next Appt Details Follow Up: 3 Months, Reason: Provider Name:Cristela polanco, 06/01/2024 03:30:00 PM, [address] [place] [address], [id number], Procedure Notes * Category Sub-Category Detail Notes Debride Nail 6-10 Nail debridement Performance o f this nail treatment by a nonprofessional would put this patients foot and overall health at risk. Therefore, debridement to affected nail(s), as described in exam, was performed extensively to reduce/remove overall nail length, girth, thickness, subungual debris, and necrotic tissue, by manual and/or electrical means through the use of a nail nipper and/or dremel-type snuff grinder, to a more viable healthy nail plate or bed tissue 6-10 nails in total. Silver nitrate was used for any petechial bleeding as necessary. Definitive antifungal treatment options, both pharmaceutical and surgical, have been reviewed and discussed with the patient. The patient solely prefers the use of intermittent/as needed professional debridement services for their nail condition and understands the need for additional periodic treatments to maintain effectiveness in symptomatic relief - 23336 Keratoma Treatment Parring or Cutting o f Benign Hyperkeratotic Lesion(s) (-57) More than 4 Lesions - The Benign hyperkeratotic lesions, ( 6 ) in total, locations as stated and described in exam, were pared, and/or cut utilizing a sterile 15 blade, tissue nippers, and/or power [facility] - [address] Progress Notes * Ramiro SNYDER FDOB:[birth year] (58 yo M)Acc No.[id number]:01/24/2024 Progress Note Patient:Ramiro MCINTYRE Provider:?Cristela Burnette DPM :1965???Age:58 Y???Sex:Male Darrel e:01/24/2024 Address:[address] [place], [place] [id number] Pcp:Cedric Ridley MD Subjective: * Chief Complaints: * ???Pcp- 04/27At Risk Footcar eToe Irritation * HPI: ???At Risk footcare:?Pt States Last PCP Visit:?Date?04/17/2023 ???Toe pain:?Location:?B/L feet.?Duration:?several years.?Aggravated by:?shoes, any pressure.?Treatments:?Rx shoes.? * ROS:?General/Constitutional:?Nausea?denies.?Vomiting?denies.?Hunger Thirst?denies.?Loss appetite?denies.?Chills?denies.?Fatigue?denies.?Fever?denies.?Night Sweats?denies.?Unexplained weight loss?denies.?Unexplained weight gain?denies.?HEENTM:?Dentures?denies.?Dizziness?denies.?Glasses/contacts?admits.?Retinopathy?den ies.?Blurred/double vision?denies.?TMJ?denies.?Discharge/drainage?denies.?Implants?denies.?Sore throat?denies.?Dental implants?denies.?Hard of hearing ?denies.?Difficulty chewing/swallowing/speaking?denies.?Nose bleeds?denies.?Sore mouth?denies.?Respiratory:?On O xygen?denies.?Pneumonia/pleurisy?denies.?Bronchitis?denies.?Emphysema?denies.?Co ughing?denies.?Cough blood?denies.?Shortness of breath?denies.?Wheezing?denies.?Cardiovascular:?Pacemaker?denies.?MVP?denies.?WPW?denies.?CHF?denies.?Heart attack?denies.?Septal defect?denies.?Rapid beat?denies.?Chest pain ?denies.?Atrial Fib.?denies.?Murmur/Palpitations?denies.?Gastrointestinal:?Hemorrhoids?denies.?Stomach/Abdominal pain?denies.?Dark blood stool?denies.?Irritable bowel ?denies.?Constipation?denies.?Diarrhea?denies.?Hematology:?Swelling?admits.?Clots?denies.?Varicose Veins?denies.?Bruising?denies.?Bleeding problem?denies.?Genitourinary:?Blood urine?denies.?Frequent/Painfu/urination/bladder control?denies.?Kidney stones?admits.?Infection (UTI)?denies.?Nephropathy?denies.?sex trans dis (STD)?denies.?Prostate?denies.?Musculoskeletal:?Hammertoes?denies.?Bunions?denies.?Back Pain?denies.?Muscle Cramps/ Resting?denies.?Muscle cramps / walking?denies.?Generalized aches and pains?denies.?Weakness?denies.?Integ.:?Wolf?denies.?Scars?denies.?Corns/calluses?admits.?Ingrown nails?denies.?Painful nails?denies.?Open Sores?admits.?Rashes?denies.?Neurologic:?Difficulty sleeping?denies.?Brain disorder?denies.?Numbness?admits.?Balance t rouble?denies.?Confusion?denies.?Fainting/blackouts?denies.?Tingling?admits.?Aydin mors?denies.? * Medical History:? * Surgical History:?tonsillect reina tubes in ears colonoscopy wisdom teeth extraction * [place]/Major Diagno stic [place] [place] * Family History:?Mother: dece ased, diabetes, arthritis, cancer, high blood pressure, diagnosed with Other malignant neoplasm of unspecified site, Diabetic - NIDDM, Unspecified essential hypertension, Family history of arthritis.?Father: , diabetes, arthritis, stroke, heart attack, high blood pressure, diagnosed with Diabetic - NIDDM, Unspecified essential hypertension, Unspecified heart disease, Unspecified cerebral artery occlusion with cerebral infarction, Family history of arthritis.? * Social History:?Tobacco Use:?Tobacco Use/Smoking?Are you a:?former smoker ?Additional Findings: Tobacco Non-User?Current non-smoker ?Tobacco use other than smoking?Are you an other tobacco user??No ???Drugs/Alcohol:?Drugs?Have you used drugs other than those for medical reasons in the past 12 months??No ?Alcohol Screen?Did you have a drink containing alcohol in the past year??Yes ?How often did you have a drink containing alcohol in the past year??Monthly or less (1 point) ?How often did you have 6 or more drinks on one occasion in the past year??Less than monthly (1 point) ?Points?2 ?Interpretation?Negative ???Miscellaneous:?Caffeine: yes, frequency:, 1-2 cups per day. ?Children: no. ?Exercise: yes, walking. ?Marital status: single. 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 * Medications:?TakingTerazosin HCl 5 MG Capsule 1 capsule at bedtime Orally Once a day Losartan Potassium 50 MG Tablet 1 tablet Orally Once a day Lantus 100 UNIT/ML Solution Subcutaneous HumaLOG 100 UNIT/ML Solution SS as needed Subcutaneous , Notes to Pharmacist: PRNmetFORMIN HCl 500 MG Tablet Orally 3 times a day Pravastatin Sodium 40 MG Tablet 1 tablet Orally Once a day Levothyroxine Sodium 75 MCG Tablet 1 tablet in the morning on an empty stomach Orally Once a day Extra Depth Orthopedic Shoes (1 Pair) with Customized Heat Molded Multidensity Innersoles (3 Pair) as directed Dx: NIDDM/Polyneuropathy (E11.42), Hammertoe Foot Deformity (M20.41,M20.42), Preulcerative Skin Lesion(s) (L85.1 Extra Depth Orthopedic Shoes (1 Pair) with Customized Heat Molded Multidensity Innersoles (3 Pair) as directed Dx: NIDDM/Polyneuropathy (E11.42), Hammertoe Foot Deformity (M20.41,M20.42), Preulcerative Skin Lesion(s) (L85.1 Custom Orthotics as directed [facility]S Skin Treatment 12 % Lotion 1 application Externally Twice a day Extra Depth Orthopedic Shoes (1 Pair) with Customized Heat Molded Multidensity Innersoles (3 Pair) as directed Dx: NIDDM/Polyneuropathy (E11.42), Hammertoe Foot Deformity (M20.41,M20.42), Preulcerative Skin Lesion(s) (L85.1 Taking Terazosin HCl 5 MG Capsule 1 capsule at bedtime Orally Once a day Taking Losartan Potassium 50 MG Tablet 1 tablet Orally Once a day Taking Lantus 100 UNIT/ML Solution Subcutaneous Taking HumaLOG 100 UNIT/ML Solution SS as needed Subcutaneous , Notes to Pharmacist: PRNTaking metFORMIN HCl 500 MG Tablet Orally 3 times a day Taking Pravastatin Sodium 40 MG Tablet 1 tablet Orally Once a day Taking Levothyroxine Sodium 75 MCG Tablet 1 tablet in the morning on an empty stomach Orally Once a day Taking Extra Depth Orthopedic Shoes (1 Pair) with Customized Heat Molded Multidensity Innersoles (3 Pair) as directed Dx: NIDDM/Polyneuropathy (E11.42), Hammertoe Foot Deformity (M20.41,M20.42), Preulcerative Skin Lesion(s) (L85.1 Taking Extra Depth Orthopedic Shoes (1 Pair) with Customized Heat Molded Multidensity Innersoles (3 Pair) as directed Dx: NIDDM/Polyneuropathy (E11.42), Hammertoe Foot Deformity (M20.41,M20.42), Preulcerative Skin Lesion(s) (L85.1 Taking Custom Orthotics as directed Taking [facility]S Skin Treatment 12 % Lotion 1 application Externally Twice a day Taking Extra Depth Orthopedic Shoes (1 Pair) with Customized Heat Molded Multidensity Innersoles (3 Pair) as directed Dx: NIDDM/Polyneuropathy (E11.42), Hammertoe Foot Deformity (M20.41,M20.42), Preulcerative Skin Lesion(s) (L85.1 Not-Taking/PRNAugmentin 500-125 MG Tablet 1 tablet Orally every 12 hrs Clindamycin HCl 300 MG Capsule 3 capsules Orally every 8 hrs Clindamy-Benzoyl Per-Niacinam Doxycycline Hyclate 100 MG Capsule 1 capsule Orally Once a day Iodosorb 0.9 % Gel as directed Externally Apply to ulceration daily with dry sterile dressing Cephalexin 500 MG Capsule 1 capsule Orally every 12 hrs Ciclopirox Olamine 0.77 % Cream 1 application to affected area Externally to feet Twice a day Extra Depth Orthopedic Shoes (1 Pair) with Customized Heat Molded Multidensity Innersoles (3 Pair) as directed Dx: NIDDM/Polyneuropathy (E11.42), Hammertoe Foot Deformity (M20.41,M20.42), Preulcerative Skin Lesion(s) (L85.1 Extra Depth Orthopedic Shoes (1 Pair) with Customized Heat Molded Multidensity Innersoles (3 Pair) as directed Dx: NIDDM/Polyneuropathy (E11.42), Hammertoe Foot Deformity (M20.41,M20.42), Preulcerative Skin Lesion(s) (L85.1 Extra Depth Orthopedic Shoes (1 Pair) with Customized Heat Molded Multidensity Innersoles (3 Pair) as directed Dx: NIDDM/Polyneuropathy (E11.42), Hammertoe Foot Deformity (M20.41,M20.42), Preulcerative Skin Lesion(s) (L85.1 glipiZIDE XL 5 MG Tablet Extended Release 24 Hour 1 tablet with food Orally Once a day glipiZIDE 5 MG Tablet 1 tablet 30 minutes before breakfast Orally Once a day Medication List reviewed and reconciled with the patientNot-Taking/PRN Augmentin 500-125 MG Tablet 1 tablet Orally every 12 hrs Not-Taking/PRN Clindamycin HCl 300 MG Capsule 3 capsules Orally every 8 hrs Not-Taking/PRN Clindamy-Benzoyl Per-Niacinam Not-Taking/PRN Doxycycline Hyclate 100 MG Capsule 1 capsule Orally Once a day Not-Taking/PRN Iodosorb 0.9 % Gel as directed Externally Apply to ulceration daily with dry sterile dressing Not-Taking/PRN Cephalexin 500 MG Capsule 1 capsule Orally every 12 hrs Not-Taking/PRN Ciclopirox Olamine 0.77 % Cream 1 application to affected area Externally to feet Twice a day Not-Taking/PRN Extra Depth Orthopedic Shoes (1 Pair) with Customized Heat Molded Multidensity Innersoles (3 Pair) as directed Dx: NIDDM/Polyneuropathy (E11.42), Hammertoe Foot Deformity (M20.41,M20.42), Preulcerative Skin Lesion(s) (L85.1 Not-Taking/PRN Extra Depth Orthopedic Shoes (1 Pair) with Customized Heat Molded Multidensity Innersoles (3 Pair) as directed Dx: NIDDM/Polyneuropathy (E11.42), Hammertoe Foot Deformity (M20.41,M20.42), Preulcerative Skin Lesion(s) (L85.1 Not-Taking/PRN Extra Depth Orthopedic Shoes (1 Pair) with Customized Heat Molded Multidensity Innersoles (3 Pair) as directed Dx: NIDDM/Polyneuropathy (E11.42), Hammertoe Foot Deformity (M20.41,M20.42), Preulcerative Skin Lesion(s) (L85.1 Not-Taking/PRN glipiZIDE XL 5 MG Tablet Extended Release 24 Hour 1 tablet with food Orally Once a day Not-Taking/PRN glipiZIDE 5 MG Tablet 1 tablet 30 minutes before breakfast Orally Once a day Medication List reviewed and reconciled with the patient * Allergies:?BactrimDaptomycin Piperacillin SodiumCefepime HClLevofloxacinPiperacillinyes[Allergies Verified] Objective: * Vitals:?Ht: 6ft 2in, Wt:190, BMI:24.39, Shoe size: 13, BS: 207, Ht-cm: 187.96 cm, Wt-k.18 kg. * ???Past Orders: ???Lab:HEMOGLOBIN A1C (GLYCO HEMOGLOBIN) (Order Date - 04/04/2023) (Collection Date & Time - 04/04/2023) ? Value Reference Range ?HEMOGLOBIN A1C (HH) 7.1 * Examination: ???Ophthalmology Referral: ?DIABETES EYE EXAM?Procedure Performed:?Yes ?Date of Exam Performed?10/03/2023 ?Findings of Diabetic Eye Exam:?no retinopathy?Neurological: ?SENSORY:? Neurological exam demonstrates, reduced light touch sensation, reduced sharp/dull pin prick discrimination , B/L, 5.07 monofilament test performed at plantar aspects of 5 varied sites per foot shows sensation, reduced , B/L.?Nails: ?NAILS are:?Elongated, overgrown, dystrophic, lytic, greater than 3mm thick, discolored and friable with crumbly malodorous subungual debris , with dull to no pain on palpation due to neuropathy , 1-5 B/L.?Dermatologic: ?SKIN FINDINGS:? Skin exam reveals Keratotic lesion(s) located at , Medial plantar , TA , T5, ?SUB MTH (s), 1, B/L,Plantar Heel(s),B/L; skin abrasion plantar midfoot right without signs of infection.?Vascular: ?DP PULSES(B):?3/4, B/L.?PT PULSES(B):?3/4, B/L.?CAPILLARY FILL TIME:?immediate, all digits, B/L.?Orthopedic: ?FOOT MORPHOLOGY:?(+) Charcot collapse/destruction noted at MTJ , B/L.?DIGITAL DEFORMITIES:?Digital contracture, PIPJ, 2-5 B/L, incompl-reducible to push-up test, no over, nor underlapping, with evidence of shoe producing skin irritation.?FOOTWEAR:?worn, OT were inspected and noted to be severely worn , in poor condition not giving proper support at the present time.?General Examination: ?GENERAL APPEARANCE:?Reveals a pleasant, alert, well nourished, well- developed, well hydrated individual, who demonstrates proper attention to hygiene/body habitus, and is in no acute distress, Pt serves as own historian for office visit today.?ORIENTED:?person, place, and time.?FOOT EXAM:?Lower Extremity Neurological Exam performed:?Yes ?Footwear Evaluation?Footwear Evaluation performed:?Yes??? Assessment: * Assessment: 1.?Other hammer toe(s) (acqu ired), right foot - M20.41 (Primary)???2.?Other hammer toe(s) (acquired), left foot - M20.42???3.?Type 2 diabetes mellitus with diabetic polyneuropathy - E11.42???4.?Charcot foot due to diabetes mellitus - E11.610???5.?Tinea unguium - B35.1???6.?Abrasion of right foot, initial encounter - S90.811A??? Plan: * Treatment: * Procedures:?Debride Nail 6-10:?Nail debridement?Performance of this nail treatment by a nonprofessional would put this patients foot and overall health at risk. Therefore, debridement to affected nail(s), as described in exam, was performed extensively to reduce/remove overall nail length, girth, thickness, subungual debris, and necrotic tissue, by manual and/or electrical means through the use of a nail nipper and/or dremel-type snuff grinder, to a more viable healthy nail plate or bed tissue 6-10 nails in total. Silver nitrate was used for any petechial bleeding as necessary. Definitive antifungal treatment options, both pharmaceutical and surgical, have been reviewed and discussed with the patient. The patient solely prefers the use of intermittent/as needed professional debridement services for their nail condition and understands the need for additional periodic treatments to maintain effectiveness in symptomatic relief - 69792.?Keratoma Treatment:?Parring or Cutting of Benign Hyperkeratotic Lesion(s)?(-57) More than 4 Lesions - The Benign hyperkeratotic lesions, ( 6 ) in total, locations as stated and described in exam, were pared, and/or cut utilizing a sterile 15 blade, tissue nippers, and/or power dremel instrumentation - 10247.? * Procedure Codes:?01078 DEBRI DE NAIL, 6 OR MORE, Modifiers: XS 00287 TRIM SKIN LESIONS, 2 TO 4, Modifiers: XS * Preventive Medicine:? ??Counseling:?Discussion:?-14: Office or other outpatient visit for the evaluation and management of an established patient, which required a medically appropriate history and/or examination and MODERATE level of DECISION MAKING for: 1 OR MORE CHRONIC PROBLEM(S) THATS WORSENING, 2 STABLE CHRONIC PROBLEMS, A NEWLY DIAGNOSED PROBLEM WITH UNCERTAIN PROGNOSIS, AN ACUTE COMPLICATED INJURY WITH MULTIPLE TREATMENT OPTIONS, OR AN ACUTE PROBLEM WITH ACCOMPANYING SYSTEMIC SYMPTOMS, THAT POSE(S) A MODERATE RISK OF MORBIDITY. THIS CONDITION MAY ALSO INCLUDE RX DRUG MANAGEMENT, OR A DECISON FOR MINOR SURGERY. The visit on the day of the encounter encompassed interpreting the data and educating the patient as to the nature of their condition, treatment options available according to their individual PMH, meds, allergies, and overall health/living conditions, as well as any potential risks or complications that may occur from a failure to adhere to, and participate in, the recommended course of therapy. The discussion included a complete verbal, and/or written explanation of the examination results, any x-rays taken, the proposed diagnosis, and outline of the treatment plan. A schedule for future care needs was also explained. The patient verbalized an understanding of the instructions at this time and agreed to be an active participant in their treatment. If the patient should think of any questions or concerns after the visit, I have encouraged the patient to call the office.?Digital Surgery:?Digital surgery was discussed with the patient, including the risks of surgery(below), vs not having surgery (persistent pain, deformity, risk for skin ulceration/infection, loss of toe), the potential surg complications, the anesthesia, and the usual post-op course. No guarentees were given. We discussed the potential procedure complications including, but not limited to: pain, swelling, bleeding, scarring, numbness, infection, delayed/non healing, floppy/unstable/shorthened toe, recurrence, failure of the procedure, overcorrection leading to plantarflexed/downward positioned toe, recurrence, need for further surgery, as well as the possibility for loss of the toe itself. We discussed the use of local anesthesia, and the usual post-op course for healing. No guarentees were given. The patient verbally indicated a full understanding of the above conversation, and any other of their questions were answered to their satisfaction. Alternatives to the procedure were also discussed, including conservative care. I also discussed the usual post-operative course and gave no guarantees regarding outcome.?Digital Treatment:?HT- I explained to the patient the possible etiologies of Hammertoes, including genetics/foot type/shoegear/activity level/exercise routine and the risks/benefits of all the different treatment options for their pain including: No treatment at all, Rest, Ice, New/supportive/wider/deeper Shoegear, Digital Padding/Strapping/Taping/Bracing/Gel protective sleeves, Foot/Ankle AFO Bracing, Stretching exercises, Deep Tissue Massage, Arch support/shoe inserts with splay metatarsal padding, and Custom orthoses. I insisted that any digital devices be removed daily and not worn overnight for safety. The patient is to carefully examine the toes daily for any skin irritation while using any splinting or padding device. The advantages and disadvantages of each option were discussed and the patients questions re: shoegear, padding, custom vs prefabricated inserts, activity level, and consistency in home treatment regimens for optimal success were answered to their verbally confirmed satisfaction.?Shoe Gear Counseling:?SHOE Rx - The patient was counseled in great detail on their muscoloskeletal foot and toe deformities which coincided with the dermatological presentations visualized on exam. We discussed how their deformities put the integrity of their feet at risk for potential pedal complications which makes the accomidative diabetic shoes and cutomizable inserts medically necessary. We discussed the different shoe and insert treatment types and options, as well as the important advantages for adhering to regularly wearing these accomidative devices daily. The patient was made aware of the fact that a failure to abide by these recommedations may be deleterious to their foot health as they are able to prevent many pedal complications such as skin irritation, skin ulceration, infection, and even loss of toe/foot/leg/or life. Time was also spent with the patient dispensing and discussing proper diabetic footcare techniques including daily skin moisturization, daily foot inspection for any interruption in skin integrity including open lesions, or sign of infection such as redness/malodor/drainage/swelling. Also discussed and recommended were procedures regarding daily shoe inspection for the presence of internal foreign bodies as well as any visualized irregular shoe or insert wear. Patient questions re: shoes, inserts, and self foot inspections were answered to their satisfaction as the patient verbally confirmed a full understanding of the above information. A Rx for Extra Depth Orthopedic Shoes with 3 pair of custom heat-molded inserts was dispensed.?Pt to apply abx oint and bandaid to right foot abrasions until healed, call with any issues. * Follow Up:?3 Months * Images: * Sign off status: Completed true * Provider:?Cristela Burnette DPM Date:? Generated for Cassi winchester/Gus/Babatunde on:?05/01/2024 03:30 PM EST History and Physical Notes * HPI (History of Present Illness) Category Sub-Category Detail Notes Category Not es Toe pain Location: B/L feet Duration: several years Aggravated by: shoes, any pressure Treatments: Rx shoes At Risk footcare Pt States Last PCP Visit: Date: Examination Category Sub-Category Detail Notes Category Not es Neurological SENSORY: Neurological exa m demonstrates, reduced light touch sensation, reduced sharp/dull pin prick discrimination , B/L, 5.07 monofilament test performed at plantar aspects of 5 varied sites per foot shows sensation, reduced , B/L Dermatologic SKIN FINDINGS: Skin exam reveal s Keratotic lesion(s) located at , Medial plantar , TA , T5, SUB MTH (s), 1, B/L,Plantar Heel(s),B/L; skin abrasion plantar midfoot right without signs of infection Orthopedic FOOT MORPHOLOGY: (+) Charcot col lapse/destruction noted at MTJ , B/L FOOTWEAR: worn, OT were inspec chula and noted to be severely worn , in poor condition not giving proper support at the present time DIGITAL DEFORMITIES: Digital contracture , PIPJ, 2-5 B/L, incompl-reducible to push-up test, no over, nor underlapping, with evidence of shoe producing skin irritation General Examination GENERAL APPEARANCE: Reveals a pleasant, alert, well nourished, well-developed, well hydrated individual, who demonstrates proper attention to hygiene/body habitus, and is in no acute distress, Pt serves as own historian for office visit today FOOT EXAM: Lower Extremity Neurological Exa m performed:: Yes ORIENTED: person, place, and t gunnar Footwear Evaluation Footwear Evaluation performe d:: Yes Ophthalmology Referral DIABETES EYE EXAM Procedure Perform ed:: Yes ?Date of Exam Performed: 10/03/2023 Findings of Diabetic Eye Exam:: no retin opathy Vascular DP PULSES (B): 3/4, B/L PT PULSES (B): 3/4, B/L CAPILLARY FILL TIME: immediate, all digi ts, B/L Nails NAILS are: Elongated, overg rown, dystrophic, lytic, greater than 3mm thick, discolored and friable with crumbly malodorous subungual debris , with dull to no pain on palpation due to neuropathy , 1-5 B/L
--- OUTSIDE RECORDS SUMMARY | 2024-05-01 15:31 | XMS_ITS | Patient Health Record ---
Author Organization [facility] Address [address] [place] [address] Care Team Providers Care Garment Mender Name Role Phone Cedric Ridley MD Primary Care Provider Casey Macdonald Unavailable [phone] ALLERGIES Allergen (clinical drug ingredient) Drug/Non Drug Allergy documented on EMR Reaction Allergy Type Onset Date Status levofloxacin Levofloxacin Unknown Drug Allergy A ctive daptomycin Daptomycin Unknown Drug Allergy Activ e cefepime Cefepime HCl Unknown Drug Allergy Acti ve tazobactam tazobactam (uncoded) Unknown Allergy Active sulfacetamide Sulfacetamide Sodium Unknown Drug Allergy Active Piperacillin Sodium Unknown Drug Allergy Active REASON FOR REFERRAL No Information MEDICATIONS Medication SIG (Take, Route, Frequency, Duration) Notes Start Date End Date Status Multivitamin Adult - 1 tablet Orally Onc e a day for 30 day(s) Active Levothyroxine Sodium 75 MCG TAKE 1 TABLE T BY MOUTH EVERY DAY Oral for 90 Active HumaLOG 100 UNIT/ML as directed Subcutan eous slider scale as directed Active Pravastatin Sodium 40 MG 1 tablet Orally Once a day Active Lantus 100 UNIT/ML INJECT 15 UNITS INTO THE SKIN AT BEDTIME. DISCARD VIAL AFTER 28 DAYS Subcutaneous for 90 Active metFORMIN HCl 500 MG TAKE 1 TABLET BY [facility] THREE TIMES A DAY DIRECTED Oral for 90 Active IMMUNIZATIONS Vaccine Route Administration Date Status Comme nts Influenza Unknown 12/03/2019 Administered SOCIAL HISTORY Tobacco Use: Social History Observation Description Date Details (start date - stop date) Never Smoker NA - NA Sex Assigned At : Social History Observation Description Sex Assigned At Unknown Tobacco Use/Smoking Question Answer Notes Patient is a nonsmoker Alcohol Screen Question Answer Notes Did you have a drink contain ing alcohol in the past year? Yes How often did you have a dri nk containing alcohol in the past year? 2 to 4 times a month (2 points) How many drinks did you have on a typical day when you were drinking in the past year? 5 or 6 drinks (2 points) Points 4 Interpretation Positive PROBLEMS Problem Type ICD Code Onset Dates Problem Status W/U Status Risk SNOMED Code Notes Problem Encounter for screening for malignant neoplasm of colon (Z12.11) Active confirmed 729732216 Problem Preprocedural examination (Z01.818) Active confirmed 298180745661825 Problem Diverticulosis of sigmoid colon (K57.30) Active confirmed Diverticulosis of sigmoid colon (231176626) PLAN OF TREATMENT Pending Test Test Name Order Date Pathology 08/26/2020 Future Test Test Name Order Date COLONOSCOPY 08/05/2020 Insurance Providers Payer Name Payer Address Payer Phone Subscriber Number Group Number Insured Name Patient Relationship to Insured Coverage Start Date Coverage End Date [facility] [address] [place] [phone] [id number] TANNER SNYDER Self - patient is the insured MEDICAL (GENERAL) HISTORY Medical History History ICD Code IDDM Hypertension 2019 bilateral foot infectio ns related to diabetes and a secondary pneumonia that required hospitalization; he describes debridements of his infected feet by Dr. Fortune Hyperlipidemia Denies DE,CVA,Lung disease,renal disease Kidney stones Hypothyroidism Surgical History Surgery Date(Month/Year) Tonsillectomy Debridement of infections on his feet as above
--- OUTSIDE RECORDS SUMMARY | 2024-05-01 15:31 | XMS_ITS ---
Author Organization [facility] Address [address] [place] [address] Care Team Providers Care Fisher Troll Line Name Role Phone Cedric Ridley MD Primary Care Provider UnavailCristela García [phone] REASON FOR VISIT RX Refill Medications Medication SIG (Take, Route, Fr equency, Duration) Notes Start Date End Date Status Ammonium Lactate 12 % 1 application Exte rnally Daily to both feet for 30 days 01/28/2024 Active Encounters Encounter Location Date Provider Diagnosis [address] [address] 01/28/2024 Cristela Burnette Plan Of Treatment Medication Medication Name Sig Start Date Stop Date Notes Ammonium Lactate 12 % 1 application Exte rnally Daily to both feet for 30 days 01/28/2024 Next Appt Details Provider Name:Cristela polanco, 06/01/2024 03:30:00 PM, [address] [place], [address], Progress Notes * Ramiro SNYDER FDOB:[birth year] (58 yo M)Acc No.[id number]:01/28/2024 Patient:?Ramiro SNYDER :1965???Age:58 Y???Sex:Male Address:[address] [place] [address], [address] * Refills? Start Ammonium Lactate Cream, 12 %, Externally, 1, 1 application, Daily to both feet, 30 days, Refills=3 * true * Date:? Generated for Cassi winchester/Gus/Babatunde on:?05/01/2024 03:30 PM EST
--- OUTSIDE RECORDS SUMMARY | 2024-05-02 10:12 | XMS_ITS | Patient Health Record ---
Author [facility] Address [address] [place] [address] Care Team Providers Care Shoe Parts Molder Name Role Phone Cedric Ridley MD Primary Care Provider Cristela Jorgensen Unavailable [phone] Allergies Allergen (clinical drug ingredient) Drug/Non Drug [...] ing Augmentin 500-125 MG 1 tablet Orally abldev ry 12 hrs for 7 day(s) 07/15/2023 [...] Problem Status W/U Status Risk Notes Problem 56907421 Other hammer toe(s) (acquired), right foot (M20.41) Active confirmed Problem 60692518 Other hammer toe(s) (acquired), left foot (M20.42) Active confirmed Problem Polyneuropathy due to type 2 diabetes mellitus (117950094) Type 2 diabetes mellitus with diabetic polyneuropathy (E11.42) Active confirmed Problem 086951231 Hammer toe of left foot (M20.42) Active confirmed Problem 53005048 Non-pressure ulcer of right lower extremity, limited to breakdown of skin (L97.911) Active confirmed Problem 433715727 Charcot foot due to diabetes mellitus (E11.610) Active confirmed Problem Neuropathic ulcer of right foot with fat layer exposed (L97.512) Active confirmed Response to treatment Problem 57277732602045700 Neuropathic ulcer of right foot, limited to breakdown of skin (L97.511) Active confirmed Problem 960812891 Acute osteomyelitis of toe, right (M86.171) Active confirmed Vital Signs Height 6ft 2in in 01/24/2024 Weight 190 lbs 01/24/2024 BMI 24.39 kg/m2 01/24/2024 Encounters Encounter Location Date Provider Diagnosis [address] [address] 06/07/2023 Cristela Burnette Other hammer toe(s) (acquired), right foot M20.41 ; Other hammer toe(s) (acquired), left foot M20.42 ; Type 2 diabetes mellitus with diabetic polyneuropathy E11.42 ; Charcot foot due to diabetes mellitus E11.610 and Tinea unguium B35.[address] [address] 07/09/2023 Cristela Higha Neuropathic ulcer of right foot with fat layer exposed L97.512 ; Acute osteomyelitis of toe, right M86.171 ; Cellulitis of toe of right foot L03.031 ; Type 2 diabetes mellitus with diabetic polyneuropathy E11.42 and Charcot foot due to diabetes mellitus E11.[address] [address] 07/19/2023 Cristela Burnette Neuropathic ulcer of right foot with fat layer exposed L97.512 ; Acute osteomyelitis of toe, right M86.171 ; Cellulitis of toe of right foot L03.031 ; Type 2 diabetes mellitus with diabetic polyneuropathy E11.42 and Charcot foot due to diabetes mellitus E11.[address] [address] 08/06/2023 Cristela Perica Neuropathic ulcer of right foot with fat layer exposed L97.512 ; Acute osteomyelitis of toe, right M86.171 ; Type 2 diabetes mellitus with diabetic polyneuropathy E11.42 and Charcot foot due to diabetes mellitus E11.610 [facility] [address] [address] 09/06/2023 Cristela Burnette Type 2 diabetes mellitus with diabetic polyneuropathy E11.42 ; Acute osteomyelitis of toe, right M86.171 and Charcot foot due to diabetes mellitus E11.[address] [facility] [address] 10/23/2023 Cristela Burnette Other hammer toe(s) (acquired), right foot M20.41 ; Other hammer toe(s) (acquired), left foot M20.42 ; Type 2 diabetes mellitus with diabetic polyneuropathy E11.42 ; Charcot foot due to diabetes mellitus E11.610 and Tinea unguium B35.[address] [facility] [address] 01/24/2024 Cristela Burnette Other hammer toe(s) (acquired), right foot M20.41 ; Other hammer toe(s) (acquired), left foot M20.42 ; Type 2 diabetes mellitus with diabetic polyneuropathy E11.42 ; Charcot foot due to diabetes mellitus E11.610 ; Tinea unguium B35.1 and Abrasion of right foot, initial encounter S90.811A [facility] [address] 05/13/2023 Cristela Burnette [facility] [address] 07/09/2023 Cristela Higha [facility] [address] [address] 07/09/2023 Cristela Higha [facility] [address] [address] 07/09/2023 Cristela Perica [facility] [address] [address] 07/09/2023 Cristela Burnette [facility] [address] [address] 10/15/2023 Cristela Burnette [facility] [address] [address] 01/28/2024 Cristela Burnette Assessments Encounter Date Diagnosis [...] X ray : Foot, right 3V 07/09/2023 [id number] SKIN/TISSUE 12/14/2022 [id number] OF HEMATOMA/FLUID 021 Next Appt Details Provider Name:Cristela Polanco Anila polanco, 06/01/2024 03:30:00 PM, [address] [place], [place], [address], Insurance Providers Payer Name Payer Address Payer Phone Subscriber Number Group Number Insured Name Patient Relationship to Insured Coverage Start Date Coverage End Date [facility] [address] [place] [address] [id number] Ramiro Emery Self - patient is the insured Medical (General) History Medical History History ICD Code Diabetes mellitus Chicken pox Charcot right Pick line Surgical History Surgery Date(Month/Year) tonsillectomy tubes in ears colonoscopy wisdom teeth extraction [place] History Reason Date[place] [facility] [place]
--- OUTSIDE RECORDS SUMMARY | 2024-05-02 10:13 | XMS_ITS ---
Author Organization [facility] Address [address] [place] [address] Care Team Providers Care Odd Job Laborer Name Role Phone Cedric Ridley MD Primary Care Provider UnavailCristela García [phone] REASON FOR VISIT RX Refill Medications Medication SIG (Take, Route, Fr equency, Duration) Notes Start Date End Date Status Ammonium Lactate 12 % 1 application Exte rnally Daily to both feet for 30 days 01/28/2024 Active Encounters Encounter Location Date Provider Diagnosis [address] [address] 01/28/2024 Cristela Burnette Plan Of Treatment Medication Medication Name Sig Start Date Stop Date Notes Ammonium Lactate 12 % 1 application Exte rnally Daily to both feet for 30 days 01/28/2024 Next Appt Details Provider Name:Cristela polanco, 06/01/2024 03:30:00 PM, [address] [place], [address], Progress Notes * Ramiro SNYDER FDOB:[birth year] (58 yo M)Acc No.[id number]:01/28/2024 Patient:?Ramiro SNYDER :1965???Age:58 Y???Sex:Male Address:[address] [place] [address], [address] * Refills? Start Ammonium Lactate Cream, 12 %, Externally, 1, 1 application, Daily to both feet, 30 days, Refills=3 * true * Date:? Generated for Cassi winchester/Gus/Babatunde on:?05/02/2024 10:12 AM EST
--- OUTSIDE RECORDS SUMMARY | 2024-05-02 10:13 | XMS_ITS ---
Author [facility] Address [address] [place] [address] Care Team Providers Care Rivet Catcher Name Role Phone Cedric Ridley MD Primary Care Provider Unavaila Cristela James Unavailable [phone] Allergies Allergen (clinical drug ingredient) Drug/Non Drug Allergy documented on EMR Reaction Allergy Type Onset Date Status Bactrim Unknown Drug Allergy Active Cefepime HCl Unknown Drug Allergy Acti ve Daptomycin Unknown Drug Allergy Active Levofloxacin Unknown Drug Allergy Acti ve Piperacillin Sodium Unknown Drug Allergy Active piperacillin [...] Active Encounters Encounter Location Date Provider Diagnosis [facility] [address] [place] [address] 04/24/2024 Cristela Burnette Plan Of Treatment Next Appt Details Provider Name:Cristela polanco, 06/01/2024 03:30:00 PM, [address] [place] [address], [address], Progress Notes * Ramiro SNYDER FDOB:[birth year] (58 yo M)Acc No.[id number]:04/24/2024 Progress Note Patient:?Ramiro SNYDER F Provider:?Cristela Burnette DPM :1965???Age:58 Y???Sex:Male Darrel e:04/24/2024 Address:[address] [place], [place] [id number] Pcp:Cedric Ridley MD Subjective: * Chief Complaints: [...] Burnette DPM Date:? Generated for Cassi winchester/Gus/Babatunde on:?05/02/2024 10:12 AM EST
--- OUTSIDE RECORDS SUMMARY | 2024-05-02 10:13 | XMS_ITS | Patient Health Record ---
Author Organization [facility] Address [address] [place] [address] Care Team Providers Care Bus Analyst Name Role Phone Cedric Ridley MD Primary Care Provider Casey Macdonald Unavailable [phone] ALLERGIES Allergen (clinical drug ingredient) Drug/Non Drug [...] HCl 500 MG TAKE 1 TABLET BY [facility] THREE TIMES A DAY DIRECTED Oral [...] malignant neoplasm of colon (Z12.11) Active confirmed 856221514 Problem Preprocedural examination (Z01.818) Active confirmed 701651299879873 Problem Diverticulosis of sigmoid colon (K57.30) Active confirmed Diverticulosis of sigmoid colon (256195403) PLAN OF TREATMENT Pending Test Test Name Order Date Pathology 08/26/2020 Future Test Test Name Order Date COLONOSCOPY 08/05/2020 Insurance Providers Payer Name Payer Address Payer Phone Subscriber Number Group Number Insured Name Patient Relationship to Insured Coverage Start Date Coverage End Date [facility] [address] [place] [phone] [id number] TANNER SNYDER Self - patient is the insured MEDICAL (GENERAL) HISTORY Medical History History ICD Code IDDM Hypertension 2019 bilateral foot infectio ns related to diabetes and a secondary pneumonia that required hospitalization; he describes debridements of his infected feet by Dr. Fortune Hyperlipidemia Denies CT,CVA,Lung disease,renal disease Kidney stones Hypothyroidism Surgical History Surgery Date(Month/Year) Tonsillectomy Debridement of infections on his feet as above
[2024-05-02 10:36] LABS: MANUAL DIFF FLAG NO
[2024-05-02 11:10] LABS: Basophils Percent Auto 0.7 % (0-2); Eosinophils Absolute Auto 0.2 X10*3/uL (0.0-0.4); Eosinophils Percent Auto 3.6 % (0-4); Hematocrit 41.3 % (42.0-52.0); Hemoglobin 13.9 g/dl (14.0-18.0); Imm Gran Abs Auto 0.03 X10*3/uL (0.00-0.03); Imm Gran Pct Auto 0.5 % (0.0-0.4); Lymphocytes Absolute Auto 1.4 X10*3/uL (1.2-4.9); Lymphocytes Percent Auto 25.3 % (20-40); Mean Corpuscular HGB Conc 33.7 g/dl (31.0-36.0); Mean Corpuscular Hemoglobin 27.1 pg (27.0-33.0); Mean Corpuscular Volume 80.5 fL (80.0-98.0); Mean Platelet Volume 10.1 fL (9.4-12.4); Monocytes Absolute Auto 0.4 X10*3/uL (0.1-1.2); Neutrophils Absolute Auto 3.4 x10*3/uL (2.0-8.3); Neutrophils Percent Auto 61.9 % (45-73); Platelet Count 157 X10*3/uL (160-400); Red Blood Count 5.13 X10*6/uL (4.60-5.80); Red Cell Distribution Width 13.1 % (11.0-16.0); White Blood Count 5.5 X10*3/uL (4.8-10.8)
[2024-05-02 11:15] LABS: Estimated Average Glucose 189 mg/dL; Hemoglobin A1C 242.7556 umol/L; Hemoglobin A1c % 8.2 % (<6.0); Total Hemoglobin (HGBA1C) 3697.6114 umol/L
[2024-05-02 12:18] LABS: Creatinine Urine 163.05 mg/dL
[2024-05-02 12:19] LABS: Alanine Aminotransferase 32 U/L (0-40); Albumin Level 4.2 g/dL (3.5-5.0); Alkaline Phosphatase 58 U/L (39-117); Anion Gap 13 (12-20); Aspartate Amino Transferase 22 U/L (5-37); Bilirubin Total 1.3 mg/dL (0.0-1.0); Blood Urea Nitrogen 16 mg/dL (9-16); Calcium 9.1 mg/dL (8.4-10.2); Carbon Dioxide 23 mmol/L (22-29); Chloride 105 mmol/L (96-108); Estimated Glomerular Filt Rate > 60; Glucose Random 211 mg/dL (60-115); Sodium 137 mmol/L (135-145); Total Protein 7.6 g/dL (6.5-8.0)
[2024-05-02 12:28] LABS: Free T4 (Free Thyroxine) 1.06 ng/dL (0.71-1.85); Thyroid Stimulating Hormone 6.38 uIU/mL (0.32-4.0)
== END 2024-05-02 10:11 | disposition home or self-care (01) ==
LOC: HO.LAB 10:10
PROVIDERS: PCP Internal Medicine; Referring Provider Internal Medicine; Visit Provider Internal Medicine
DX: E11.9 Type 2 diabetes mellitus without complications (principal); I10 Essential (primary) hypertension; E03.9 Hypothyroidism, unspecified
CPT/HCPCS: 36415; 80053; 82043; 82570; 83036; 84439; 84443; 85025

== ENCOUNTER 2024-05-13 14:18 | Outpatient (AMB) | payer OTHER, SELFPAY ==
[2024-05-13 14:19] VITALS: BP 152/90; PULSE 92; RESP 16; TEMP 36.4; O2SAT 97; BMI 37.4
--- NOTE | 2024-05-13 14:19 | A.OFFPC_ITS ---
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: No Accompanied by: Self / Same As Patient Allergies cefepime [CEFEPIME] Allergy (Severe, Verified 05/13/24 14:23) HIVES daptomycin [DAPTOMYCIN] Allergy (Severe, Verified 05/13/24 14:23) pulmonary interstitial pneumonitis levofloxacin [LEVOFLOXACIN] Allergy (Intermediate, Verified 05/13/24 14:23) HIVES piperacillin [From ZOSYN] Allergy (Unknown, Verified 05/13/24 14:23) rash Sulfa (Sulfonamide Antibiotics) [SULFA (SULFONAMIDE ANTIBIOTICS)] Allergy (Unknown, Verified 05/13/24 14:23) UNKNOWN tazobactam [From ZOSYN] Allergy (Unknown, Verified 05/13/24 14:23) rash piperacillin Allergy (Unknown, Uncoded 05/13/24 14:23) Unknown Tobacco use date assessed: 05/13/24 Dental Screening Dental Screen Date: 05/13/24 Did you have a dental visit in the last 12 months?: Yes Did you have a dental problem in the last 6 months where you did not have access to dental care?: No [facility] Medical History (Updated 05/13/24 @ 14:48 by Rick Miranda MD) Acquired hypothyroidism Osteomyelitis HTN (hypertension) Hyperthyroidism Type II diabetes mellitus Surgical History History of tonsillectomy Family History (Updated 05/13/24 @ 14:28 by VERONIKA Beavers) Mother Diabetes Graves disease Pancreatic cancer Father Heart problem Social History (Updated 05/13/24 @ 14:29 by VERONIKA Beavers) Housing: House Alcohol intake: current Alcohol intake frequency: a few times a week Patient Tobacco Use Status: Former Tobacco user Tobacco use type: Cigarette Years Smoked: 5 service: No Current occupational status: employed Cognitive needs: No Hearing needs: No Vision needs: Yes (rx glasses) Questionnaire PHQ-9 Over the last 2 weeks, how often have you been bothered by any of the following problems? 1. Little interest or pleasure in doing things: not at all 2. Feeling down, depressed, or hopeless: not at all 3. Trouble falling or staying asleep, or sleeping too much: not at all 4. Feeling tired or having little energy: not at all 5. Poor appetite or overeating: not at all 6. Feeling bad about yourself - or that you are a failure or have let yourself or your family down: not at all 7. Trouble concentrating on things, such as reading the newspaper or watching television: not at all 8. Moving or speaking so slowly that other people could have noticed. Or the opposite - being so fidgety or restless that you have been moving around a lot more than usual: not at all 9. Thoughts that you would be better off or of hurting yourself in some way: not at all Total score: 0 Source: Developed by Drs. Casey Ramos, Brigitte Londono, Grant Wilder and colleagues, with an educational kristina from [employer]. Thrive Questionnaire Date Thrive assessed: 05/13/24 I am a: Patient What is your living situation today?: I have a steady place to live Within the past 12 months, did the food you bought not last and you didn't have the money to get more?: Never true Within the past 12 months, did you worry whether your food would run out before you got money to buy more?: Never true Do you have trouble paying for medicines?: No Do you have trouble getting transportation to medical appointments?: No Do you have trouble paying your heating and electricity bill?: No Do you have trouble taking care of your child, family member or friend?: No Do you have trouble with day-to-day activities such as bathing, preparing meals, shopping, managing finances, etc.?: No Are you currently unemployed and looking for a job?: No Are you interested in more education?: No THRIVE Score: 0 AUDIT C Alcohol Use Questionnaire (AUDIT-C) 1. How often do you have a drink containing alcohol?: Monthly or less 2. How many drinks containing alcohol do you have on a typical day when you are drinking?: 1 or 2 3. How often do you have six or more drinks on one occasion?: Never Total Score: 1 MICHAEL-7 AMB Questionnaire MICHAEL-7 Date MICHAEL - 7 assessed: 05/13/24 Feeling nervous, anxious, or on edge: 0 = Not at all Not being able to stop or control worryin = Not at all Worrying too much about different things: 0 = Not at all Trouble relaxin = Not at all Being so restless that it is hard to sit still: 0 = Not at all Becoming easily annoyed or irritable: 0 = Not at all Feeling afraid as if something awful might happen: 0 = Not at all Total MICHAEL-7 score (0-4 normal; 5-9 mild; 10-14 moderate; 15-21 severe): 0 Source: Developed by Drs. Casey Ramos, Brigitte Londono, Grant Wilder and colleagues, with an educational kristina from [employer]. Physical exam (Primary Care) Vital Signs: Last Vital Signs Temp 97.5 F 05/13/24 14:19 Pulse 92 05/13/24 14:19 Resp 16 05/13/24 14:19 BP 152/90 H 05/13/24 14:19 Pulse Ox 97 05/13/24 14:19 Oxygen Delivery Method Room Air 05/13/24 14:19 BMI result Body Mass Index 37.4 Tobacco/Smoking Status: Tobacco use Status Tobacco use date assessed 05/13/24 05/13/24 14:29 Patient Tobacco Use Status Former Tobacco user 05/13/24 14:29 Tobacco use type Cigarette 05/13/24 14:29 PHQ-9: PHQ-9 Score PHQ-9: Total score 0 05/13/24 14:29 Thrive Assessment: Date of Thrive Assessment Date Thrive assessed 05/13/24 05/13/24 14:29 Coding Level of Care Code New Pt Level 4 (57936) Complex EM visit Add On G2211 Diagnoses Acquired hypothyroidism E03.9 Type II diabetes mellitus E11.9 Assessment & Plan Assessment & Plan (1) Acquired hypothyroidism: Code(s): E03.9 - Hypothyroidism, unspecified Category: Medical Plan: Thyroxine dosage increased. Rpt TSH in six weeks. (2) Type II diabetes mellitus: Code(s): E11.9 - Type 2 diabetes mellitus without complications Category: Medical Plan: A1c is elevated. Lantus increased to 30 units. Humalog increased to 25 units twice a day. Plan History of Present Illness The patient is a 58-year-old male presenting with concerns related to his management of Type 2 Diabetes Mellitus. Historically, this condition has been well-managed with an A1c that was below 6. Recently, the A1c has risen to 8.2, contributing to his concern. The patient's medication regimen includes levothyroxine, which was recently increased, and adjustments have been made to his insulin regimen?including Lantus and Humalog?to improve glucose control. Over the past year, the patient has experienced weight gain following reduced mobility due to foot surgery, which he correlates with his current glycemic control issues. Although he has implemented the increase in insulin dose recommended last visit, his blood glucose remains higher than desired, primarily within the 175-180 range, entraining improvement but not achieving target levels. 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 - Housing: Lives alone. - Substance Use: Does not smoke; drinks alcohol occasionally (1-2 per week). - Nutrition: Attempts to limit carbohydrate intake, with notable difficulty reducing rice consumption. - Family: No children, has a niece and family in [place]. - Physical Activity: No specific exercise routine mentioned. Review of Systems - Endocrine: Reports elevated blood glucose levels. Physical Exam General: Cooperative and healthy appearing Nutritional Appearance: Well nourished Orientation/consciousness: Patient oriented x3 Limitations: No limitations Head: Normal to inspection General: Appearance normal, both eyes and all related structures Neck: Normal visual inspection Chest: Normal palpation of entire chest wall Respiratory: Normal respiratory effort Neurology: Patient oriented x3 Results - Labs: A1c 8.2 Plan We will increase the Lantus dose to 30 units and the Humalog dose to 15 units before lunch and dinner to better manage the patient's elevated blood glucose levels. Dietary adjustments are critical, with advice to reduce sugar and carbohydrates, particularly in the evening. Refills of insulin medications have been arranged to ensure consistent management. Continued regular blood glucose monitoring is also advised. Follow-up is planned for three months to reassess A1c levels and adjustment in the levothyroxine regimen. Patient was informed and verbally consented to the use of an ambient scribe for clinic note documentation during this visit. Discussion Notes I discussed with the patient the plan to escalate his insulin therapy to achieve better glycemic control due to elevated A1c levels. The increase in Lantus and Humalog dosages was explained, along with the expected benefits and the necessity of dietary modifications to aid in managing his diabetes. Emphasized the importance of diet, particularly reducing simple carbohydrates and sugars, to positively impact blood glucose levels. The patient was reminded about the need for consistent medication supply and advised to contact the pharmacy for refills ahead of necessity. I reiterated the plan for a follow-up visit in three months to re-evaluate diabetes control and reassess thyroid function. Patient Instructions - Increase Lantus to 30 units before bedtime. - Increase Humalog to 15 units before lunch and dinner. - Limit sugar and carbohydrates, especially in the evening. - Continue monitoring blood glucose levels daily. - Ensure medication refills are arranged in advance. - Follow up in three months for repeat A1c test and thyroid function assessment. - Modify diet to include more vegetables and limit rice consumption or consume it earlier in the day. Orders: Orders Thyroid Stimulating Hormone 06/02/24 E03.9 - Hypothyroidism, unspecified Medications: Changed From insulin glargine (Lantus U-100 Insulin) 30 units subcut BEDTIME To insulin glargine (Lantus U-100 Insulin) 30 units (0.3 mL) subcut BEDTIME 90 days 27 mL 1RF From insulin lispro (Humalog KwikPen (U-100) Insulin) 25 units subcut USEASDIRECTD To insulin lispro (Humalog KwikPen (U-100) Insulin) 25 units (0.25 mL) subcut BID 90 days 45 mL 1RF
--- OUTSIDE RECORDS SUMMARY | 2024-05-13 16:50 | XMS_ITS | Patient Health Record ---
[facility] Address [address] [place] [address] Care Team Providers Care Abstractor Name Role Phone Cedric Ridley MD Primary Care Provider Cristela Jorgensen Unavailable [phone] Allergies Allergen (clinical drug ingredient) Drug/Non Drug Allergy documented on EMR Reaction Allergy Type Onset Date Status Bactrim Unknown Drug Allergy Active cefepime Cefepime [...] Immunizations Vaccine Route Administration Date Status Comme [facility] COVID-19 Moderna Vaccine Unknown 12/23/2020 Administered First [...] Problem Status W/U Status Risk Notes Problem 31747574 Other hammer toe(s) (acquired), right foot (M20.41) Active confirmed Problem 50322865 Other hammer toe(s) (acquired), left foot (M20.42) Active confirmed Problem Polyneuropathy due to type 2 diabetes mellitus (375881039) Type 2 diabetes mellitus with diabetic polyneuropathy (E11.42) Active confirmed Problem 666338724 Hammer toe of left foot (M20.42) Active confirmed Problem 02860638 Non-pressure ulcer of right lower extremity, limited to breakdown of skin (L97.911) Active confirmed Problem 854908738 Charcot foot due to diabetes mellitus (E11.610) Active confirmed Problem Neuropathic ulcer of right foot with fat layer exposed (L97.512) Active confirmed Response to treatment Problem 31230951963340524 Neuropathic ulcer of right foot, limited to breakdown of skin (L97.511) Active confirmed Problem 625017554 Acute osteomyelitis of toe, right (M86.171) Active confirmed Vital Signs Height 6ft 2in in 01/24/2024 Weight 190 lbs 01/24/2024 BMI 24.39 kg/m2 01/24/2024 Encounters Encounter Location Date Provider Diagnosis [address] [address] 06/07/2023 Cristela Burnette Other hammer toe(s) (acquired), right foot M20.41 ; Other hammer toe(s) (acquired), left foot M20.42 ; Type 2 diabetes mellitus with diabetic polyneuropathy E11.42 ; Charcot foot due to diabetes mellitus E11.610 and Tinea unguium B35.[address] [address] 07/09/2023 Cristela Perica Neuropathic ulcer of right foot with fat layer exposed L97.512 ; Acute osteomyelitis of toe, right M86.171 ; Cellulitis of toe of right foot L03.031 ; Type 2 diabetes mellitus with diabetic polyneuropathy E11.42 and Charcot foot due to diabetes mellitus E11.[address] [address] 07/19/2023 Cristela Perica Neuropathic ulcer of right foot with fat layer exposed L97.512 ; Acute osteomyelitis of toe, right M86.171 ; Cellulitis of toe of right foot L03.031 ; Type 2 diabetes mellitus with diabetic polyneuropathy E11.42 and Charcot foot due to diabetes mellitus E11.[address] [address] 08/06/2023 Cristela Perica Neuropathic ulcer of right foot with fat layer exposed L97.512 ; Acute osteomyelitis of toe, right M86.171 ; Type 2 diabetes mellitus with diabetic polyneuropathy E11.42 and Charcot foot due to diabetes mellitus E11.610 [facility] [address] [address] 09/06/2023 Cristela Burnette Type 2 diabetes mellitus with diabetic polyneuropathy E11.42 ; Acute osteomyelitis of toe, right M86.171 and Charcot foot due to diabetes mellitus E11.[address] [address] 10/23/2023 Cristela Burnette Other hammer toe(s) (acquired), right foot M20.41 ; Other hammer toe(s) (acquired), left foot M20.42 ; Type 2 diabetes mellitus with diabetic polyneuropathy E11.42 ; Charcot foot due to diabetes mellitus E11.610 and Tinea unguium B35.[address] [facility] [address] 01/24/2024 Cristela Burnette Other hammer toe(s) (acquired), right foot M20.41 ; Other hammer toe(s) (acquired), left foot M20.42 ; Type 2 diabetes mellitus with diabetic polyneuropathy E11.42 ; Charcot foot due to diabetes mellitus E11.610 ; Tinea unguium B35.1 and Abrasion of right foot, initial encounter S90.811A [facility] [address] 07/09/2023 Cristela Burnette [facility] [address] 07/09/2023 Cristela Burnette [facility] [address] 07/09/2023 Cristela Burnette [facility] [address] 07/09/2023 Cristela Burnette [facility] [address] 10/15/2023 Cristela Burnette [facility] [address] 01/28/2024 Cristela Burnette Assessments Encounter Date Diagnosis [...] X ray : Foot, right 3V 07/09/2023 [id number] SKIN/TISSUE 12/14/2022 [id number] OF HEMATOMA/FLUID 021 Next Appt Details Provider Name:Cristela polanco, 06/01/2024 03:30:00 PM, [address], [place], [address], Insurance Providers Payer Name Payer Address Payer Phone Subscriber Number Group Number Insured Name Patient Relationship to Insured Coverage Start Date Coverage End Date [facility] [address] [place] [address] [phone] [id number] Ramiro Emery Self - patient is the insured Medical (General) History Medical History History ICD Code Diabetes mellitus Chicken pox Charcot right Pick line Surgical History Surgery Date(Month/Year) tonsillectomy tubes in ears colonoscopy wisdom teeth extraction Hospitalization History Reason Date(Month/Year) [facility] [place] 2019
--- OUTSIDE RECORDS SUMMARY | 2024-05-13 16:50 | XMS_ITS ---
Author Organization [facility] Address [address] [place] [address] Care Team Providers Care Fire Ranger Name Role Phone Cedric Ridley MD Primary Care Provider Unavaila Cristela James Unavailable [phone] Allergies Allergen (clinical drug ingredient) Drug/Non Drug [...] Active Encounters Encounter Location Date Provider Diagnosis [facility] [place] [place] [address] 04/24/2024 Cristela Burnette Plan Of Treatment Next Appt Details Provider Name:Cristela polanco, 06/01/2024 03:30:00 PM, [address] [place] [address], [address], Progress Notes * Ramiro SNYDER FDOB:[birth year] (58 yo M)Acc No.[id number]:04/24/2024 Progress Note Patient:?Ramiro SNYDER Daniella Provider:?Cristela Burnette DPM :1965???Age:58 Y???Sex:Male Darrel e:04/24/2024 Address:[address] [place], [place] [id number] Pcp:Cedric Ridley MD Subjective: * Chief Complaints: [...] Burnette DPM Date:? Generated for Cassi winchester/Gus/Babatunde on:?05/13/2024 04:50 PM EDT
--- OUTSIDE RECORDS SUMMARY | 2024-05-13 16:50 | XMS_ITS ---
Author Organization [facility] Address [address] [place] [address] Care Team Providers Care Cigar Tobacco Rehandler Name Role Phone Cedric Ridley MD Primary Care Provider Unavaila Cristela James Unavailable [phone] Allergies Allergen (clinical drug ingredient) Drug/Non Drug [...] 01/24/2024 Encounters Encounter Location Date Provider Diagnosis [facility] [address] [address] 01/24/2024 Cristela Burnette Other hammer toe(s) (acquired), right foot M20.41 ; Other hammer toe(s) (acquired), left foot M20.42 ; Type 2 diabetes mellitus with diabetic polyneuropathy E11.42 ; Charcot foot due to diabetes mellitus E11.610 ; Tinea unguium B35.1 and Abrasion of right foot, initial encounter S90.779N Assessments Encounter Date Diagnosis (ICD Code) Assessment [...] Reason: Provider Name:Cristela polanco, 06/01/2024 03:30:00 PM, [address] [place] [address], [place], [address], Procedure Notes * Category Sub-Category Detail Notes [...] use of a nail nipper and/or dremel-type paint grinder stone mill, to a more viable healthy nail plate [...] to maintain effectiveness in symptomatic relief - 71226 Keratoma Treatment Parring or Cutting o f Benign Hyperkeratotic Lesion(s) (-57) More than 4 Lesions - The Benign hyperkeratotic lesions, ( 6 ) in total, locations as stated and described in exam, were pared, and/or cut utilizing a sterile 15 blade, tissue nippers, and/or power dremel instrumentation - 61495 Progress Notes * Ramiro SNYDER FDOB:[birth year] (58 yo M)Acc No.[id number]:01/24/2024 Progress Note Patient:?Ramiro SNYDER Provider:?Cristela Burnette DPM :1965???Age:58 Y???Sex:Male Darrel e:01/24/2024 Address:[address] [place] [address], [facility] Pcp:Cedric Ridley MD Subjective: * Chief Complaints: [...] wisdom teeth extraction * Hospitalization/Major Diagno stic Procedure:[place] [place] * Family History:?Mother: [...] yes, walking. ?Marital status: single. 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 * Medications:?TakingTerazosin HCl 5 MG Capsule 1 [...] use of a nail nipper and/or dremel-type paint grinder stone mill, to a more viable healthy nail plate [...] to maintain effectiveness in symptomatic relief - 35641.?Keratoma Treatment:?Parring or Cutting of Benign Hyperkeratotic Lesion(s)?(-57) More than 4 Lesions - The Benign hyperkeratotic lesions, ( 6 ) in total, locations as stated and described in exam, were pared, and/or cut utilizing a sterile 15 blade, tissue nippers, and/or power dremel instrumentation - 02526.? * Procedure Codes:?50609 DEBRI DE NAIL, 6 OR MORE, Modifiers: XS 61053 TRIM SKIN LESIONS, 2 TO 4, Modifiers: [...] for Cassi winchester/Gus/Babatunde on:?05/13/2024 04:50 PM EDT History and Physical Notes * HPI (History [...]
--- OUTSIDE RECORDS SUMMARY | 2024-05-13 16:51 | XMS_ITS ---
Author Organization [facility] Address [address] [place] [address] Care Team Providers Care Camera Repairer Name Role Phone Cedric Ridley MD Primary Care Provider UnavailCristela García [phone] REASON FOR VISIT RX Refill Medications Medication SIG (Take, Route, Fr equency, Duration) Notes Start Date End Date Status Ammonium Lactate 12 % 1 application Exte rnally Daily to both feet for 30 days 01/28/2024 Active Encounters Encounter Location Date Provider Diagnosis [address] [address] 01/28/2024 Cristela Burnette Plan Of Treatment Medication Medication Name Sig Start Date Stop Date Notes Ammonium Lactate 12 % 1 application Exte rnally Daily to both feet for 30 days 01/28/2024 Next Appt Details Provider Name:Cristela polanco, 06/01/2024 03:30:00 PM, [address] [place], [address], Progress Notes * Ramiro SNYDER FDOB:[birth year] (58 yo M)Acc No.[id number]:01/28/2024 Patient:?Ramiro SNYDER :1965???Age:58 Y???Sex:Male Address:[address] [place] [address], [address] * Refills? Start Ammonium Lactate Cream, 12 %, Externally, 1, 1 application, Daily to both feet, 30 days, Refills=3 * true * Date:? Generated for Cassi winchester/Gus/Babatunde on:?05/13/2024 04:50 PM EDT
--- OUTSIDE RECORDS SUMMARY | 2024-05-13 16:51 | XMS_ITS | Patient Health Record ---
Author Organization [facility] Address [address] [place] [address] Care Team Providers Care Hazmat Truck Driver Name Role Phone Cedric Ridley MD Primary Care Provider Casey Macdonald Unavailable [phone] Allergies Allergen (clinical drug ingredient) Drug/Non Drug Allergy documented on EMR Reaction Allergy Type Onset Date Status sulfacetamide Sulfacetamide Sodium Unknown Drug Allergy Active Piperacillin Sodium Unknown Drug Allergy Active levofloxacin Levofloxacin Unknown Drug Allergy A ctive daptomycin Daptomycin Unknown Drug Allergy Activ e cefepime Cefepime HCl Unknown Drug Allergy Acti ve tazobactam tazobactam (uncoded) Unknown Allergy Active Reason For Referral No Information Medications Medication [...] HCl 500 MG TAKE 1 TABLET BY [facility] THREE TIMES A DAY DIRECTED Oral for 90 Active Immunizations Vaccine Route Administration Date Status Comme nts Influenza Unknown 12/03/2019 Administered Social History Tobacco Use: Social History Observation Description Date Details (start date - stop date) Never Smoker NA - NA Tobacco Use/Smoking Question Answer Notes Patient is [...] drinks (2 points) Points 4 Interpretation Positive Section Notes: Nonsmoker; no sig alcohol Problems Problem Type SNOMED Code ICD Code Onset Dates Problem Status W/U Status Risk Notes Problem 503732059 Encounter for screening for malignant neoplasm of colon (Z12.11) Active confirmed Problem 058613694044648 Preprocedural examination (Z01.818) Active confirmed Problem Diverticulosis of sigmoid colon (867040420) Diverticulosis of sigmoid colon (K57.30) Active confirmed Plan Of Treatment Pending Test Test Name Order Date Pathology 08/26/2020 Future Test Test Name Order Date COLONOSCOPY 08/05/2020 Insurance Providers Payer Name Payer Address Payer Phone Subscriber Number Group Number Insured Name Patient Relationship to Insured Coverage Start Date Coverage End Date [facility] [address] [place] [address] [phone] [id number] 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 Fortune Hyperlipidemia Denies FL,CVA,Lung disease,renal disease Kidney stones Hypothyroidism Surgical History Surgery Date(Month/Year) Tonsillectomy Debridement of infections on his feet as above
== END 2024-05-13 14:43 | disposition home or self-care (01) ==
LOC: HO.HMCHD 14:18
PROVIDERS: PCP Internal Medicine; Visit Provider Internal Medicine
DX: E03.9 Hypothyroidism, unspecified (principal); E11.9 Type 2 diabetes mellitus without complications

== ENCOUNTER → 2024-05-13 14:18 | Outpatient (BNVA) | payer OTHER, SELFPAY | PROVIDERS: PCP Internal Medicine; Visit Provider Internal Medicine ==

== ENCOUNTER 2024-06-06 09:58 | Outpatient (REF) | payer OTHER, SELFPAY ==
--- OUTSIDE RECORDS SUMMARY | 2024-06-06 10:00 | XMS_ITS ---
Author Organization [facility] Address [address] [place] [address] Care Team Providers Care Rn Chronic Name Role Phone Rick Miranda Primary Care Provider Cristela Burnette Unavailable [phone] Allergies Allergen (clinical drug ingredient) Drug/Non Drug Allergy documented on EMR Reaction Allergy Type Onset Date Status sulfamethoxazole / trimethoprim Bactrim Unknown Drug Allergy Active cefepime Cefepime HCl Unknown Drug Allergy Acti ve daptomycin Daptomycin Unknown Drug Allergy Activ e levofloxacin Levofloxacin Unknown Drug Allergy A ctive Piperacillin Sodium Unknown Drug Allergy Active piperacillin Piperacillin Unknown Drug Allergy A ctive REASON FOR VISIT At Risk Footcare Medications Medication SIG (Take, Route, Frequency, Duration) [...] Deformity (M20.41,M20.42), Preulcerative Skin Lesion(s) (L85.1 Not-Taking Clindamy-Benzoyl Per-Niacinam Not-Taking Doxycycline Hyclate 100 MG 1 capsule Orally Once a day for 10 day(s) 08/14/2022 Not-Taking Iodosorb 0.9 % as directed External ly Apply to ulceration daily with dry sterile dressing for 30 days 12/14/2022 Not-Taking Cephalexin 500 MG 1 capsule Orally baldev ry 12 hrs for 10 day(s) Not-Taking Ciclopirox Olamine 0.77 % 1 application to affected area Externally to feet Twice a day for 30 days Not-Taking Clindamycin HCl 300 MG 3 capsules Orally every 8 hrs Not-Taking HumaLOG 100 UNIT/ML SS as needed Subcutaneous PRN Not-Taking Augmentin 500-125 MG 1 tablet Orally baldev ry 12 hrs for 7 day(s) 07/15/2023 Not-Taking Insulin Glargine-yfgn 100 UNIT/ML Subcutaneous for 90 Days Act melvin Lantus 100 UNIT/ML Subcutaneous Not-Taking Custom Orthotics as directed 01/15/2023 Active [facility] Skin Treatment 12 % 1 application Ex ternally Twice a day for 30 days Active Extra Depth Orthopedic Shoes (1 Pair) with Customized Heat Molded Multidensity Innersoles (3 Pair) as directed Dx: NIDDM/Polyneuropathy (E11.42), Hammertoe Foot Deformity (M20.41,M20.42), Preulcerative Skin Lesion(s) (L85.1 Active Ammonium Lactate 12 % 1 application Exte rnally Daily to both feet for 30 days 01/28/2024 Active Insulin Lispro (1 Unit Dial) 100 UNIT/ML INJECT 25 UNITS (0.25 ML) SUBCUTANEOUSLY 2 TIMES A DAY FOR 90 DAYS Subcutaneous for 90 Days Active Extra Depth Orthopedic Shoes (1 Pair) with Customized Heat Molded Multidensity Innersoles (3 Pair) as directed Dx: NIDDM/Polyneuropathy (E11.42), Hammertoe Foot Deformity (M20.41,M20.42), Preulcerative Skin Lesion(s) (L85.1 10/16/2022 Active Extra Depth Orthopedic Shoes (1 Pair) with Customized Heat Molded Multidensity Innersoles (3 Pair) as directed Dx: NIDDM/Polyneuropathy (E11.42), Hammertoe Foot Deformity (M20.41,M20.42), Preulcerative Skin Lesion(s) (L85.1 01/15/2023 Active Pravastatin Sodium 40 MG 1 tablet Orally Once a day for 30 day(s) Active Levothyroxine Sodium 75 MCG 1 tablet in the morning on an empty stomach Orally Once a day Active metFORMIN HCl 500 MG Orally 3 times a day Active Losartan Potassium 50 MG 1 tablet Orally Once a day for 30 day(s) Active Terazosin HCl 5 MG 1 capsule at bedtime Orally Once a day Active Social History Tobacco Use: Social History Observation Description Date Details (start date - stop date) Never Smoker NA - NA Tobacco use other than smoking: Question Answer Notes Are you an other tobacco user? No Tobacco Control (Standard) Question Answer Notes Tobacco use: Nonsmoker Vital Signs Height 6ft2in in 06/02/2024 Weight 190 lbs 06/02/2024 BMI 24.39 kg/m2 06/02/2024 Blood pressure systolic 134 mm Hg 06/03/19 25 Blood pressure diastolic 82 mm Hg 025 Encounters Encounter Location Date Provider Diagnosis [facility] [place] [address] [place] [address] 06/02/2024 Cristela Burnette Type 2 diabetes mellitus with diabetic polyneuropathy E11.42 and Charcot foot due to diabetes mellitus E11.610 Assessments Encounter Date Diagnosis (ICD Code) Assessment Notes Treatment Notes Treatment Clinical Notes Section Notes 06/02/2024 Type 2 diabetes mellitus with diabetic polyneuropathy (ICD-10 - E11.42) 06/02/2024 Charcot foot due to diabetes mellitus (ICD-10 - E11.610) Plan Of Treatment Next Appt Details Follow Up: 3 Months, Reason: Provider Name:Cristela polanco, 09/01/2024 04:00:00 PM, [address] [place], [address], Procedure Notes * Category Sub-Category Detail Notes Keratoma Treatment Parring or Cutting o f Benign Hyperkeratotic Lesion(s) (-56) 2-4 Lesions - Due to the at risk nature of the patients medical condition as documented in the exam findings, performance of this keratoderma treatment is medically necessary as its management by an unskilled/untrained nonprofessional would put this patients foot and overall health at risk. Therefore, the benign hyperkeratotic lesions, (4) in total, locations as stated and described in the exam ( Medial plantar , TA , T5, SUB MTH (s), 1, B/L ), were pared, and/or cut utilizing a sterile 15 blade, tissue nippers, and/or power dremel instrumentation by the physician of record - [id number] Progress Notes * Ramiro SNYDER FDOB:[birth year] (58 yo M)Acc No.[id number]:06/02/2024 Progress Note Patient:?Ramiro SNYDER Provider:?Cristela Burnette DPM :1965???Age:58 Y???Sex:Male Darrel e:06/02/2024 Address:[address] [place], [place] [phone] Pcp:Rick Miranda Subjective: * Chief Complaints: * ???At Risk Footcare * HPI: ???At Risk footcare:?Pt States Last PCP Visit:?Date?05/18/2024 * ROS:?General/Constitutional:?Nausea?denies.?Vomiting?denies.?Hunger Thirst?denies.?Loss appetite?denies.?Chills?denies.?Fatigue?denies.?Fever?denies.?Night Sweats?denies.?Unexplained weight loss?denies.?Unexplained [...] wisdom teeth extraction * [place]ization/Major Diagno stic Procedure[place] [place] * Family History:?Mother: dece ased, diabetes, arthritis, cancer, high blood pressure, diagnosed with Unspecified essential hypertension, Family history of arthritis, Other malignant neoplasm of unspecified site, Diabetic - NIDDM.?Father: , diabetes, arthritis, stroke, heart attack, high blood pressure, diagnosed with Diabetic - NIDDM, Unspecified essential hypertension, Unspecified heart disease, Unspecified cerebral artery occlusion with cerebral infarction, Family history of arthritis.? * Social History:?Tobacco Use:?Tobacco use other than smoking?Are you an other tobacco user??No ?Tobacco Control (Standard)?Tobacco use:?Nonsmoker ???Miscellaneous:?Caffeine: yes, frequency:, 1-2 cups per day. ?Children: no. ?Exercise: yes, walking. ?Marital status: single. 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 * Medications:?TakingTerazosin HCl 5 MG Capsule 1 capsule at bedtime Orally Once a day Losartan Potassium 50 MG Tablet 1 tablet Orally Once a day metFORMIN HCl 500 MG Tablet Orally 3 [...] Foot Deformity (M20.41,M20.42), Preulcerative Skin Lesion(s) (L85.1 Ammonium Lactate 12 % Cream 1 application Externally Daily to both feet Insulin Lispro (1 Unit Dial) 100 UNIT/ML Solution Pen-injector INJECT 25 UNITS (0.25 ML) SUBCUTANEOUSLY 2 TIMES A DAY FOR 90 DAYS Subcutaneous Insulin Glargine-yfgn 100 UNIT/ML Solution Subcutaneous Taking Terazosin HCl 5 MG Capsule 1 capsule at bedtime Orally Once a day Taking Losartan Potassium 50 MG Tablet 1 tablet Orally Once a day Taking metFORMIN HCl 500 MG Tablet Orally [...] Deformity (M20.41,M20.42), Preulcerative Skin Lesion(s) (L85.1 Taking Ammonium Lactate 12 % Cream 1 application Externally Daily to both feet Taking Insulin Lispro (1 Unit Dial) 100 UNIT/ML Solution Pen-injector INJECT 25 UNITS (0.25 ML) SUBCUTANEOUSLY 2 TIMES A DAY FOR 90 DAYS Subcutaneous Taking Insulin Glargine-yfgn 100 UNIT/ML Solution Subcutaneous Not-Taking/PRNLantus 100 UNIT/ML Solution Subcutaneous HumaLOG 100 UNIT/ML Solution SS as needed Subcutaneous , Notes to Pharmacist: PRNAugmentin 500-125 MG Tablet 1 tablet Orally every [...] List reviewed and reconciled with the patientNot-Taking/PRN Lantus 100 UNIT/ML Solution Subcutaneous Not-Taking/PRN HumaLOG 100 UNIT/ML Solution SS as needed Subcutaneous , Notes to Pharmacist: PRNNot-Taking/PRN Augmentin 500-125 MG Tablet 1 tablet Orally [...] Piperacillin SodiumCefepime HClLevofloxacinPiperacillinyes[Allergies Verified] Objective: * Vitals:?Ht: 6ft2in, Wt:190, BMI:24.39, Shoe size: 13, BP:134/82mm Hg, BS: 159, Ht-cm: 187.96 cm, Wt-k.18 kg. * Examination: ???Ophthalmology Referral: ?DIABETES EYE EXAM?Procedure Performed:?Yes ?Date of Exam Performed?05/18/2024 ?Findings of Diabetic Eye Exam:?no retinopathy?Neurological: ?SENSORY:?(DM/Neuro) Neurological exam demonstrates reduced sharp/dull pin prick discrimination reduced light touch sensation reduced vibration sensation reduced proprioception sensation in a stocking fashion 5.07 monofilament test performed at plantar aspects of 5 varied sites per foot shows sensation plantar aspects absent at Forefoot B/L.?Dermatologic: ?SKIN FINDINGS:? Skin exam reveals Keratotic lesion(s) located at , Medial plantar , TA , T5, ?SUB MTH (s), 1, B/L.?Vascular: ?DP PULSES (B):?3/4, B/L.?PT PULSES (B):?3/4, B/L.?CAPILLARY FILL TIME:?immediate, all digits, B/L.?TROPHIC CONDITION-TEXTURE/ELASTICITY/TURGOR/HAIR GROWTH (B):?normal, B/L.?Orthopedic: ?MUSCLE STRENGTH:?5/5 all groups in a symmetrical fashion, B/L.?FOOT MORPHOLOGY:?(+) Charcot collapse/destruction noted at MTJ , B/L.?DIGITAL DEFORMITIES:?Digital contracture, PIPJ, 2-5 B/L, incompl-reducible to push-up test, no over, nor underlapping, with evidence of shoe producing skin irritation.? Assessment: * Assessment: 1.?Type 2 diabetes mellitus with diabetic polyneuropathy - E11.42 (Primary)???2.?Charcot foot due to diabetes mellitus - E11.610???Specify :Chronic problem, Stable (1=3,2=4)??? Plan: * Treatment: * Procedures:?Keratoma Treatment:?Parring or Cutting of Benign Hyperkeratotic Lesion(s)?(-56) 2-4 Lesions - Due to the at risk nature of the patients medical condition as documented in the exam findings, performance of this keratoderma treatment is medically necessary as its management by an unskilled/untrained nonprofessional would put this patients foot and overall health at risk. Therefore, the benign hyperkeratotic lesions, (4) in total, locations as stated and described in the exam (?Medial plantar?,?TA?,?T5,??SUB MTH (s),?1,?B/L?), were pared, and/or cut utilizing a sterile 15 blade, tissue nippers, and/or power dremel instrumentation by the physician of record - [id number].? * Procedure Codes:?63596 TRIM SKIN LESIONS, 2 TO 4 * Follow Up:?3 Months * Images: * Sign off status: Completed true * Provider:?Cristela Burnette DPM Date:?03/2024 Generated for Cassi winchester/Gus/Babatunde on:?06/06/2024 10:00 AM EDT History and Physical Notes * HPI (History of Present Illness) Category Sub-Category Detail Notes Category Not es At Risk footcare Pt States Last PCP Visit: Date: Examination Category Sub-Category Detail Notes Category Not es Neurological SENSORY: (DM/Neuro) Neuro logical exam demonstrates reduced sharp/dull pin prick discrimination reduced light touch sensation reduced vibration sensation reduced proprioception sensation in a stocking fashion 5.07 monofilament test performed at plantar aspects of 5 varied sites per foot shows sensation plantar aspects absent at Forefoot B/L Dermatologic SKIN FINDINGS: Skin exam reveal s Keratotic lesion(s) located at , Medial plantar , TA , T5, SUB MTH (s), 1, B/L Orthopedic FOOT MORPHOLOGY: (+) Charcot col lapse/destruction noted at MTJ , B/L DIGITAL DEFORMITIES: Digital contracture , PIPJ, 2-5 B/L, incompl-reducible to push-up test, no over, nor underlapping, with evidence of shoe producing skin irritation MUSCLE STRENGTH: 5/5 all groups in a symmetrical fashion, B/L Ophthalmology Referral DIABETES EYE EXAM Procedure Perform ed:: Yes ?Date of Exam Performed: 05/18/2024 Findings of Diabetic Eye Exam:: no retin opathy Vascular DP PULSES (B): 3/4, B/L PT PULSES (B): 3/4, B/L CAPILLARY FILL TIME: immediate, all digi ts, B/L TROPHIC CONDITION-TEXTURE/EL ASTICITY/TURGOR/HAIR GROWTH (B): normal, B/L
--- OUTSIDE RECORDS SUMMARY | 2024-06-06 10:00 | XMS_ITS | Patient Health Record ---
[facility] Organization [facility] Address [address] [place] [address] Care Team Providers Care Swager Operator Name Role Phone Rick Miranda Primary Care Provider Cristela Burnette Unavailable [phone] Allergies Allergen (clinical drug ingredient) Drug/Non Drug [...] Once a day for 30 day(s) Not-Taking Levothyroxine Sodium 75 MCG 1 tablet in the morning on an empty stomach Orally Once a day Active glipiZIDE 5 MG 1 tablet 30 minutes before breakfast Orally Once a day for 30 day(s) Not-Kodi ing Custom Orthotics as directed 01/15/2023 Active [facility] Skin Treatment 12 % 1 application Ex ternally Twice a day for 30 days Active Iodosorb 0.9 % as directed External ly Apply to ulceration daily with dry sterile dressing for 30 days 12/14/2022 Not-Taking Cephalexin 500 MG 1 capsule Orally baldev ry 12 hrs for 10 day(s) Not-Taking Losartan Potassium 50 MG 1 tablet Orally Once a day for 30 day(s) Active Extra Depth Orthopedic Shoes (1 Pair) with Customized Heat Molded Multidensity Innersoles (3 Pair) as directed Dx: NIDDM/Polyneuropathy (E11.42), Hammertoe Foot Deformity (M20.41,M20.42), Preulcerative Skin Lesion(s) (L85.1 07/26/2020 Not-Taking metFORMIN HCl 500 MG Orally 3 times a day Active Extra Depth Orthopedic Shoes (1 Pair) with Customized Heat Molded Multidensity Innersoles (3 Pair) as directed Dx: NIDDM/Polyneuropathy (E11.42), Hammertoe Foot Deformity (M20.41,M20.42), Preulcerative Skin Lesion(s) (L85.1 07/18/2021 Not-Taking Ciclopirox Olamine 0.77 % 1 application to affected area Externally to feet Twice a day for 30 days Not-Taking Terazosin HCl 5 MG 1 capsule at bedtime Orally Once a day Active Extra Depth Orthopedic Shoes (1 Pair) with Customized Heat Molded Multidensity Innersoles (3 Pair) as directed Dx: NIDDM/Polyneuropathy (E11.42), Hammertoe Foot Deformity (M20.41,M20.42), Preulcerative Skin Lesion(s) (L85.1 Not-Taking Clindamycin HCl 300 MG 3 capsules Orally every 8 hrs Not-Taking Clindamy-Benzoyl Per-Niacinam Not-Taking HumaLOG 100 UNIT/ML SS as needed Subcutaneous PRN Not-Taking Augmentin 500-125 MG 1 tablet Orally baldev ry 12 hrs for 7 day(s) 07/15/2023 Not-Taking Doxycycline Hyclate 100 MG 1 capsule Orally Once a day for 10 day(s) 08/14/2022 Not-Taking Extra Depth Orthopedic Shoes (1 Pair) with Customized Heat Molded Multidensity Innersoles (3 Pair) as directed Dx: NIDDM/Polyneuropathy (E11.42), Hammertoe Foot Deformity (M20.41,M20.42), Preulcerative Skin Lesion(s) (L85.1 Active Insulin Glargine-yfgn 100 UNIT/ML Subcutaneous for 90 Days Act melvin Lantus 100 UNIT/ML Subcutaneous Not-Taking Ammonium Lactate 12 % 1 application Exte rnally Daily to both feet for 30 days 01/28/2024 Active Insulin Lispro (1 Unit Dial) 100 UNIT/ML INJECT 25 UNITS (0.25 ML) SUBCUTANEOUSLY 2 TIMES A DAY FOR 90 DAYS Subcutaneous for 90 Days Active Immunizations Vaccine Route Administration Date Status Comme nts COVID-19 Moderna Vaccine Unknown 12/23/2020 Administered First Dose: 04/27/20 Second Dose: 05/25/2020 Influenza Unknown 11/03/2018 Administered Influenza Unknown 11/03/2019 Administered Influenza Unknown 11/15/2021 Administered Influenza Unknown 01/02/2023 Administered Social History Tobacco Use: Social History Observation Description Date Details (start date - stop date) Never Smoker NA - NA Alcohol Screen Question Answer Notes Did you [...] (Standard) Question Answer Notes Tobacco use: Nonsmoker Problems Problem Type SNOMED Code ICD Code Onset Dates Problem Status W/U Status Risk Notes Problem 71191951 Other hammer toe(s) (acquired), right foot (M20.41) Active confirmed Problem 72360008 Other hammer toe(s) (acquired), left foot (M20.42) Active confirmed Problem Polyneuropathy due to type 2 diabetes mellitus (321653831) Type 2 diabetes mellitus with diabetic polyneuropathy (E11.42) Active confirmed Problem 114636330 Hammer toe of left foot (M20.42) Active confirmed Problem 47262538 Non-pressure ulcer of right lower extremity, limited to breakdown of skin (L97.911) Active confirmed Problem 124579794 Charcot foot due to diabetes mellitus (E11.610) Active confirmed Problem Neuropathic ulcer of right foot with fat layer exposed (L97.512) Active confirmed Response to treatment Problem 63629546890628808 Neuropathic ulcer of right foot, limited to breakdown of skin (L97.511) Active confirmed Problem 145918758 Acute osteomyelitis of toe, right (M86.171) Active confirmed Vital Signs Blood pressure diastolic 82 mm Hg 06/02/2024 Height 6ft2in in 06/02/2024 Blood pressure systolic 134 mm Hg 06/02/2024 Weight 190 lbs 06/02/2024 BMI 24.39 kg/m2 06/02/2024 Encounters Encounter Location Date Provider Diagnosis [address] [address] 06/07/2023 Cristela Burnette Other hammer toe(s) (acquired), right foot M20.41 ; Other hammer toe(s) (acquired), left foot M20.42 ; Type 2 diabetes mellitus with diabetic polyneuropathy E11.42 ; Charcot foot due to diabetes mellitus E11.610 and Tinea unguium B35.[address] [address] 07/09/2023 Cristela Burnette Neuropathic ulcer of right foot with fat layer exposed L97.512 ; Acute osteomyelitis of toe, right M86.171 ; Cellulitis of toe of right foot L03.031 ; Type 2 diabetes mellitus with diabetic polyneuropathy E11.42 and Charcot foot due to diabetes mellitus E11.[address] [address] 07/19/2023 Cristela Burnette Neuropathic ulcer of right foot with fat layer exposed L97.512 ; Acute osteomyelitis of toe, right M86.171 ; Cellulitis of toe of right foot L03.031 ; Type 2 diabetes mellitus with diabetic polyneuropathy E11.42 and Charcot foot due to diabetes mellitus E11.[address] [address] 08/06/2023 Cristela Burnette Neuropathic ulcer of right foot with fat layer exposed L97.512 ; Acute osteomyelitis of toe, right M86.171 ; Type 2 diabetes mellitus with diabetic polyneuropathy E11.42 and Charcot foot due to diabetes mellitus E11.[address] [address] 09/06/2023 Cristela Burnette Type 2 diabetes mellitus with diabetic polyneuropathy E11.42 ; Acute osteomyelitis of toe, right M86.171 and Charcot foot due to diabetes mellitus E11.[address] [address] 10/23/2023 Cristela Burnette Other hammer toe(s) (acquired), right foot M20.41 ; Other hammer toe(s) (acquired), left foot M20.42 ; Type 2 diabetes mellitus with diabetic polyneuropathy E11.42 ; Charcot foot due to diabetes mellitus E11.610 and Tinea unguium B35.[address] [address] 01/24/2024 Cristela Burnette Other hammer toe(s) (acquired), right foot M20.41 ; Other hammer toe(s) (acquired), left foot M20.42 ; Type 2 diabetes mellitus with diabetic polyneuropathy E11.42 ; Charcot foot due to diabetes mellitus E11.610 ; Tinea unguium B35.1 and Abrasion of right foot, initial encounter S90.811A [address] [address] 06/02/2024 Cristela uBrnette Type 2 diabetes mellitus with diabetic polyneuropathy E11.42 and Charcot foot due to diabetes mellitus E11.[address] [address] 07/09/2023 Cristela Burnette [address] [address] 07/09/2023 Cristela Burnette [address] [address] 07/09/2023 Cristela Higha [facility] [address] [place] [address] 07/09/2023 Cristela Perica [facility] [address] [place] [address] 10/15/2023 Cristela Higha [facility] [address] [place] [address] 01/28/2024 Cristela Burnette [facility] [address] [address] 06/01/2024 Cristela Burnette Assessments Encounter Date Diagnosis (ICD [...] toe(s) (acquired), left foot (ICD-10 - M20.42) 06/02/2024 Type 2 diabetes mellitus with diabetic polyneuropathy (ICD-10 - E11.42) 06/02/2024 Charcot foot due to diabetes mellitus (ICD-10 - E11.610) 01/24/2024 Type 2 diabetes mellitus with diabetic [...] X ray : Foot, right 3V 07/09/2023 [id number] SKIN/TISSUE 12/14/2022 [id number] OF HEMATOMA/FLUID 021 Next Appt Details Provider Name:Cristela polanco, 09/01/2024 04:00:00 PM, [address] [place], [address], Insurance Providers Payer Name Payer Address Payer Phone Subscriber Number Group Number Insured Name Patient Relationship to Insured Coverage Start Date Coverage End Date [facility] [address] [facility] [place] [id number] [phone] [id number] Ramiro Emery Self - patient is the insured Medical (General) History Medical History History ICD Code Diabetes mellitus Chicken pox Charcot right Pick line Surgical History Surgery Date(Month/Year) tonsillectomy tubes in ears colonoscopy wisdom teeth extraction Hospitalization History Reason Date(Month/[place] [facility] [place]
--- OUTSIDE RECORDS SUMMARY | 2024-06-06 10:00 | XMS_ITS | Patient Health Record ---
Author Organization [facility] Address [address] [place] [address] Care Team Providers Care Lead Pharmacy Technician Name Role Phone Cedric Ridley MD Primary Care Provider Casey Macdonald Unavailable [phone] Allergies Allergen (clinical drug ingredient) Drug/Non Drug Allergy documented on EMR Reaction Allergy Type Onset Date Status Piperacillin Sodium Unknown Drug Allergy Active levofloxacin Levofloxacin Unknown Drug Allergy A ctive daptomycin Daptomycin Unknown Drug Allergy Activ e cefepime Cefepime HCl Unknown Drug Allergy Acti ve tazobactam tazobactam (uncoded) Unknown Allergy Active sulfacetamide Sulfacetamide Sodium Unknown Drug Allergy Active Reason For Referral No Information [...] HCl 500 MG TAKE [address] [facility] THREE TIMES A DAY DIRECTED Oral for [...] Problem Status W/U Status Risk Notes Problem 927716618 Encounter for screening for malignant neoplasm of colon (Z12.11) Active confirmed Problem [id number] Preprocedural examination (Z01.818) Active confirmed Problem Diverticulosis of sigmoid colon (054440332) Diverticulosis of sigmoid colon (K57.30) Active confirmed Plan Of Treatment Pending Test Test Name Order Date Pathology 08/26/2020 Future Test Test Name Order Date COLONOSCOPY 08/05/2020 Insurance Providers Payer Name Payer Address Payer Phone Subscriber Number Group Number Insured Name Patient Relationship to Insured Coverage Start Date Coverage End Date [facility] [address] [place] [address] [phone] [id number] 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 Fortune Hyperlipidemia Denies [place],CVA,Lung disease,renal disease Kidney stones Hypothyroidism Surgical History Surgery Date(Month/Year) Tonsillectomy Debridement of infections on his feet as above
--- OUTSIDE RECORDS SUMMARY | 2024-06-06 10:00 | XMS_ITS ---
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 Generated for Printi ng/Famumtazg/eTransmitting on:?06/06/2024 10:00 AM EDT
--- OUTSIDE RECORDS SUMMARY | 2024-06-06 10:01 | XMS_ITS ---
[facility] Address [address] [place] [address] Care Team Providers Care Cylinder Valve Repairer Name Role Phone Ruben, Kartik Primary Care Provider Cristela Burnette Unavailable [phone] Allergies Allergen (clinical drug ingredient) Drug/Non Drug [...] a day for 30 day(s) Not-Kodi ing glipiZIDE XL 5 MG 1 tablet with [...] Active Encounters Encounter Location Date [facility] [address] 06/01/2024 Cristela Burnette Plan Of Treatment Next Appt Details Provider Name:Cristela polanco, 09/01/2024 04:00:00 PM, [address] [place], [address], Progress Notes * Ramiro SNYDER FDOB:[birth year] (58 yo M)Acc No.[id number]:06/01/2024 Progress Note Patient:?Ramiro SNYDER Daniella Provider:?Cristela Burnette DPM :1965???Age:58 Y???Sex:Male Darrel e:06/01/2024 Address:[address] [place], [place] [id number] Pcp:Rick Miranda Subjective: * Chief Complaints: * ??? * Medical History:?Diabetes me llitus, Chicken pox, [...] Provider:?Cristela Burnette DPM Date:? Generated for Cassi winchester/Gus/Carrollitting on:?06/06/2024 10:00 AM EDT
[2024-06-06 12:10] LABS: Thyroid Stimulating Hormone 6.55 uIU/mL (0.32-4.0)
== END 2024-06-06 09:59 | disposition home or self-care (01) ==
LOC: HO.LAB 09:58
PROVIDERS: PCP Internal Medicine; Visit Provider Internal Medicine
DX: E03.9 Hypothyroidism, unspecified (principal)
CPT/HCPCS: 36415; 84443

== ENCOUNTER 2024-07-31 13:04 | Outpatient (REF) | payer OTHER, SELFPAY ==
--- OUTSIDE RECORDS SUMMARY | 2024-07-31 13:14 | XMS_ITS | Patient Health Record ---
Author [facility] Address [address] [place] [address] Care Team Providers Care Sterile Technician Name Role Phone Rick Miranda Primary Care Provider Cristela Burnette Unavailable [phone] Allergies Allergen (clinical drug ingredient) Drug/Non Drug [...] Orally Once a day for 30 day(s) Not-Koid ing Custom Orthotics as directed 01/15/2023 Active [...] Problem Status W/U Status Risk Notes Problem [id number] Other hammer toe(s) (acquired), right foot (M20.41) Active confirmed Problem 97678738 Other hammer toe(s) (acquired), left foot (M20.42) Active confirmed Problem Polyneuropathy due to type 2 diabetes mellitus (881204816) Type 2 diabetes mellitus with diabetic polyneuropathy (E11.42) Active confirmed Problem 678919550 Hammer toe of left foot (M20.42) Active confirmed Problem 75548355 Non-pressure ulcer of right lower extremity, limited to breakdown of skin (L97.911) Active confirmed Problem 388737766 Charcot foot due to diabetes mellitus (E11.610) Active confirmed Problem Neuropathic ulcer of right foot with fat layer exposed (L97.512) Active confirmed Response to treatment Problem 98780079603875532 Neuropathic ulcer of right foot, limited to breakdown of skin (L97.511) Active confirmed Problem 996771399 Acute osteomyelitis of toe, right (M86.171) Active confirmed Vital Signs Blood pressure diastolic 82 mm Hg 06/02/2024 Height 6ft2in in 06/02/2024 Blood pressure systolic 134 mm Hg 06/02/2024 Weight 190 lbs 06/02/2024 BMI 24.39 kg/m2 06/02/2024 Encounters Encounter Location Date Provider Diagnosis [address] [address] 08/06/2023 Cristela Burnette Neuropathic ulcer of right foot with fat layer exposed L97.512 ; Acute osteomyelitis of toe, right M86.171 ; Type 2 diabetes mellitus with diabetic polyneuropathy E11.42 and Charcot foot due to diabetes mellitus E11.[address] [address] 09/06/2023 Cristela Burnette Type 2 diabetes mellitus with diabetic polyneuropathy E11.42 ; Acute osteomyelitis of toe, right M86.171 and Charcot foot due to diabetes mellitus E11.[address] [address] 10/23/2023 Cristela Burnette Other hammer toe(s) (acquired), right foot M20.41 ; Other hammer toe(s) (acquired), left foot M20.42 ; Type 2 diabetes mellitus with diabetic polyneuropathy E11.42 ; Charcot foot due to diabetes mellitus E11.610 and Tinea unguium B35.[address] [address] 01/24/2024 Cristela Burnette Other hammer toe(s) (acquired), right foot M20.41 ; Other hammer toe(s) (acquired), left foot M20.42 ; Type 2 diabetes mellitus with diabetic polyneuropathy E11.42 ; Charcot foot due to diabetes mellitus E11.610 ; Tinea unguium B35.1 and Abrasion of right foot, initial encounter S90.811A [facility] [address] [address] 06/02/2024 Cristela Burnette Type 2 diabetes mellitus with diabetic polyneuropathy E11.42 and Charcot foot due to diabetes mellitus E11.[address] [facility] [address] 10/15/2023 Cristela Burnette [facility] [address] 01/28/2024 [facility] [address] 06/01/2024 Cristela Burnette Assessments Encounter Date Diagnosis (ICD Code) Assessment Notes Treatment Notes Treatment Clinical Notes Section Notes 08/06/2023 Neuropathic ulcer of right foot with [...] to diabetes mellitus (ICD-10 - E11.610) 01/24/2024 Charcot foot due to diabetes mellitus [...] X ray : Foot, right 3V 07/09/2023 [id number] SKIN/TISSUE 12/14/2022 [id number] OF HEMATOMA/FLUID 021 Next Appt Details Provider Name:Cristela polanco, 09/01/2024 04:00:00 PM, [address] [facility], [place], [address], Insurance Providers Payer Name Payer Address Payer Phone Subscriber Number Group Number Insured Name Patient Relationship to Insured Coverage Start Date Coverage End Date [facility] [address] [place] [address] [id number] Ramiro Emery Self - patient is the insured Medical (General) History Medical History History ICD Code Diabetes mellitus Chicken pox Charcot right Pick line Surgical History Surgery Date(Month/Year) tonsillectomy tubes in ears colonoscopy wisdom teeth extraction Hospitalization History Reason Date(Month/Year) [facility] - antibiotic reaction 2019
[2024-07-31 14:54] LABS: Thyroid Stimulating Hormone 4.46 uIU/mL (0.32-4.0)
== END 2024-07-31 13:05 | disposition home or self-care (01) ==
LOC: HO.LAB 13:04
PROVIDERS: PCP Internal Medicine; Visit Provider Internal Medicine
DX: E03.9 Hypothyroidism, unspecified (principal)
CPT/HCPCS: 36415; 84443

== ENCOUNTER 2024-08-19 13:56 | Outpatient (AMB) | payer OTHER, SELFPAY ==
--- NOTE | 2024-08-19 13:11 | MHC.PC.OV ---
Vital Signs 08/19/24 13:12 Height 6 ft 2 in Weight 305 lb BMI 39.2 BP 146/90 H Blood Pressure Location Lt brachial Position Sitting Pulse 99 Pulse Source Pulse Oximeter Temp 97.7 F Temp Source Axillary Pulse Oximetry (%) 97 Oxygen Delivery Method Room Air Intake Visit Reasons: Routine Manufacturers Agent Required: No Accompanied by: Self / Same As Patient Allergies cefepime (CEFEPIME) Allergy (Severe, Verified 08/19/24 13:12) HIVES daptomycin (DAPTOMYCIN) Allergy (Severe, Verified 08/19/24 13:12) pulmonary interstitial pneumonitis levofloxacin (LEVOFLOXACIN) Allergy (Intermediate, Verified 08/19/24 13:12) HIVES piperacillin (From ZOSYN) Allergy (Unknown, Verified 08/19/24 13:12) rash Sulfa (Sulfonamide Antibiotics) (SULFA (SULFONAMIDE ANTIBIOTICS)) Allergy (Unknown, Verified 08/19/24 13:12) UNKNOWN tazobactam (From ZOSYN) Allergy (Unknown, Verified 08/19/24 13:12) rash piperacillin Allergy (Unknown, Uncoded 05/13/24 14:23) Unknown Tobacco use date assessed: 08/19/24 Dental Screening Dental Screen Date: 08/19/24 Did you have a dental visit in the last 12 months?: Yes Did you have a dental problem in the last 6 months where you did not have access to dental care?: No PFSH Medical History Acquired hypothyroidism Osteomyelitis HTN (hypertension) Hyperthyroidism Type II diabetes mellitus Surgical History History of colonoscopy (~08/26/20) History of tonsillectomy Family History (Updated 08/19/24 @ 14:04 by Judy House [place]) Mother Diabetes Graves disease Pancreatic cancer Father Heart problem Social History Housing: House Alcohol intake: current Alcohol intake frequency: a few times a week Patient Tobacco Use Status: Former Tobacco user Tobacco use type: Cigarette Years Smoked: 5 e-Cigarette/Vaping Use: Former Use service: No Current occupational status: employed Cognitive needs: No Hearing needs: No Vision needs: Yes (rx glasses) Questionnaire PHQ-9 Over the last 2 weeks, how often have you been bothered by any of the following problems? 1. Little interest or pleasure in doing things: not at all 2. Feeling down, depressed, or hopeless: not at all 3. Trouble falling or staying asleep, or sleeping too much: not at all 4. Feeling tired or having little energy: not at all 5. Poor appetite or overeating: not at all 6. Feeling bad about yourself - or that you are a failure or have let yourself or your family down: not at all 7. Trouble concentrating on things, such as reading the newspaper or watching television: not at all 8. Moving or speaking so slowly that other people could have noticed. Or the opposite - being so fidgety or restless that you have been moving around a lot more than usual: not at all 9. Thoughts that you would be better off or of hurting yourself in some way: not at all Total score: 0 Source: Developed by Drs. Casey Ramos, Brigitte Londnoo, Grant Wilder and colleagues, with an educational kristina from [employer]. Thrive Questionnaire Date Thrive assessed: 08/19/24 I am a: Patient Within the past 12 months, did the food you bought not last and you didn't have the money to get more?: Never true Within the past 12 months, did you worry whether your food would run out before you got money to buy more?: Never true Do you have trouble paying for medicines?: No Do you have trouble getting transportation to medical appointments?: No Do you have trouble paying your heating and electricity bill?: No Do you have trouble taking care of your child, family member or friend?: No Do you have trouble with day-to-day activities such as bathing, preparing meals, shopping, managing finances, etc.?: No Are you currently unemployed and looking for a job?: No Are you interested in more education?: No THRIVE Score: 0 AUDIT C Alcohol Use Questionnaire (AUDIT-C) 1. How often do you have a drink containing alcohol?: Monthly or less 2. How many drinks containing alcohol do you have on a typical day when you are drinking?: 1 or 2 3. How often do you have six or more drinks on one occasion?: Less than monthly Total Score: 2 MICHAEL-7 AMB Questionnaire MICHAEL-7 Date MICHAEL - 7 assessed: 08/19/24 Feeling nervous, anxious, or on edge: 0 = Not at all Not being able to stop or control worryin = Not at all Worrying too much about different things: 0 = Not at all Trouble relaxin = Not at all Being so restless that it is hard to sit still: 0 = Not at all Becoming easily annoyed or irritable: 0 = Not at all Feeling afraid as if something awful might happen: 0 = Not at all Total MICHAEL-7 score (0-4 normal; 5-9 mild; 10-14 moderate; 15-21 severe): 0 Source: Developed by Drs. Casey Ramos, Brigitte Londono, Grant Wilder and colleagues, with an educational kristina from [employer]. Physical exam (Primary Care) Vital Signs: Last Vital Signs Temp 97.7 F 08/19/24 13:12 Pulse 99 08/19/24 13:12 BP 146/90 H 08/19/24 13:12 Pulse Ox 97 08/19/24 13:12 Oxygen Delivery Method Room Air 08/19/24 13:12 BMI result Body Mass Index 39.2 Tobacco/Smoking Status: Tobacco use Status Tobacco use date assessed 08/19/24 08/19/24 13:13 Patient Tobacco Use Status Former Tobacco user 08/19/24 13:13 Tobacco use type Cigarette 08/19/24 13:13 e-Cigarette/Vaping Use Former Use 08/19/24 14:04 PHQ-9: PHQ-9 Score PHQ-9: Total score 0 08/19/24 14:16 Thrive Assessment: Date of Thrive Assessment Date Thrive assessed 08/19/24 08/19/24 13:13 Coding Level of Care Code Est Pt Level 4 (88422) Complex EM visit Add On G2211 Diagnoses Type II diabetes mellitus E11.9 Acquired hypothyroidism E03.9 Assessment & Plan Assessment & Plan (1) Type II diabetes mellitus: Code(s): E11.9 - Type 2 diabetes mellitus without complications Category: Medical Plan: Lantus dosage increased to 40 units SQ and short acting insulin dosage increased to 25 units bid (2) Acquired hypothyroidism: Code(s): E03.9 - Hypothyroidism, unspecified Category: Medical Plan: Continue Synthroid dosage at same dosage. Plan History of Present Illness - The patient is a 58-year-old male presenting with Type 2 Diabetes Mellitus. - Insulin regimen previously adjusted; currently on 30 units of Lantus and 25 units of short-acting insulin twice daily. - Morning fasting blood glucose levels usually around 170 mg/dL and post-meal levels in the low 200s, normalizing to 165 mg/dL at night. - Adherence to checking blood glucose typically before lunch and bedtime. - No recent use of antibiotics or ongoing infections. - Concerns regarding insulin delivery method; adjustments needed for pen needle usage. Social History Review of Systems - Endocrine: Reports compliance with diabetic and thyroid medication regimen. - Endocrine: Denies recent use of antibiotics. Physical Exam General: Cooperative and healthy appearing Nutritional Appearance: Well nourished Orientation/consciousness: Patient oriented x3 Limitations: No limitations Head: Normal to inspection General: Appearance normal, both eyes and all related structures Neck: Normal visual inspection Chest: Normal palpation of entire chest wall Respiratory: Normal respiratory effort Neurology: Patient oriented x3 Results - Labs: Hemoglobin A1c requested, order placed for fasting blood draw. Plan 1. Type 2 Diabetes Mellitus - Increase Lantus to 40 units if morning glucose remains >=70 mg/dL - Short-acting insulin adjusted to 35 units twice a day - Monitor blood glucose first thing in morning and two hours post-meal - Adjust pen needle use, ensuring appropriate supply - Fasting blood test for Hemoglobin A1c 2. Hypothyroidism - Continue current thyroid medication Discussion Notes I discussed with the patient the adjustment of his insulin regimen due to elevated morning and post-prandial glucose levels. We agreed to increase Lantus to 40 units if morning sugars are consistently around 170 mg/dL. I advised increasing the short-acting insulin to 35 units twice daily to prevent postprandial hyperglycemia. I instructed the patient to monitor blood glucose levels upon waking and two hours after meals. I explained the change in needle prescriptions due to his insurance, and adjustments were made for pen needle quantities. I reiterated the importance of fasting before the scheduled Hemoglobin A1c test. The patient expressed understanding and agreement with the plan and will return if issues arise. Patient Instructions - Increase Lantus to 40 units at night if morning glucose levels remain high. - Adjust short-acting insulin to 35 units before meals. - Check blood sugar levels first thing in the morning and two hours after eating. - Get fasting blood test for Hemoglobin A1c as planned. - Return if you have any problems or notice changes in your blood sugar levels. - Use pen needles multiple times if you are the only user. Orders: Orders Hemoglobin A1c Today E03.9 - Hypothyroidism, unspecified, E11.9 - Type 2 diabetes mellitus without complications Lipid Panel Today E03.9 - Hypothyroidism, unspecified, E11.9 - Type 2 diabetes mellitus without complications
[2024-08-19 13:12] VITALS: BP 146/90; PULSE 99; TEMP 36.5; O2SAT 97; BMI 39.2
--- OUTSIDE RECORDS SUMMARY | 2024-08-19 16:00 | XMS_ITS | Patient Health Record ---
[facility] Address [address] [place] [address] Care Team Providers Care Teacher Visually Impaired Name Role Phone Rick Miranda Primary Care Provider [phone] Cristela Burnette Unavailable [phone] Allergies Allergen (clinical drug ingredient) Drug/Non Drug [...] Problem Status W/U Status Risk Notes Problem 90508156 Other hammer toe(s) (acquired), right foot (M20.41) Active confirmed Problem 57703896 Other hammer toe(s) (acquired), left foot (M20.42) Active confirmed Problem Polyneuropathy due to type 2 diabetes mellitus (500874912) Type 2 diabetes mellitus with diabetic polyneuropathy (E11.42) Active confirmed Problem 796669640 Hammer toe of left foot (M20.42) Active confirmed Problem 79420073 Non-pressure ulcer of right lower extremity, limited to breakdown of skin (L97.911) Active confirmed Problem 493738702 Charcot foot due to diabetes mellitus (E11.610) Active confirmed Problem Neuropathic ulcer of right foot with fat layer exposed (L97.512) Active confirmed Response to treatment Problem 21070262955665389 Neuropathic ulcer of right foot, limited to breakdown of skin (L97.511) Active confirmed Problem 260192390 Acute osteomyelitis of toe, right (M86.171) Active confirmed Vital Signs Blood pressure diastolic 82 mm Hg 06/02/2024 Height 6ft2in in 06/02/2024 Blood pressure systolic 134 mm Hg 06/02/2024 Weight 190 lbs 06/02/2024 BMI 24.39 kg/m2 06/02/2024 Encounters Encounter Location Date Provider Diagnosis [address] [address] 09/06/2023 Cristela Burnette Type 2 diabetes mellitus with diabetic polyneuropathy E11.42 ; Acute osteomyelitis of toe, right M86.171 and Charcot foot due to diabetes mellitus E11.[address] [address] 10/23/2023 Cristela Burnette Other hammer toe(s) (acquired), right foot M20.41 ; Other hammer toe(s) (acquired), left foot M20.42 ; Type 2 diabetes mellitus with diabetic polyneuropathy E11.42 ; Charcot foot due to diabetes mellitus E11.610 and Tinea unguium B35.[address] [address] 01/24/2024 Cristela Burnette Other hammer toe(s) (acquired), right foot M20.41 ; Other hammer toe(s) (acquired), left foot M20.42 ; Type 2 diabetes mellitus with diabetic polyneuropathy E11.42 ; Charcot foot due to diabetes mellitus E11.610 ; Tinea unguium B35.1 and Abrasion of right foot, initial encounter S90.811[facility] [address] 06/02/2024 Cristela Burnette Type 2 diabetes mellitus with diabetic polyneuropathy E11.42 and Charcot foot due to diabetes mellitus E11.[address] [address] 10/15/2023 [facility] [address] 01/28/2024 [facility] [address] 06/01/2024 Cristela Burnette Assessments Encounter Date Diagnosis (ICD Code) Assessment Notes Treatment Notes Treatment Clinical Notes Section Notes 09/06/2023 Type 2 diabetes mellitus with diabetic [...] osteomyelitis of toe, right (ICD-10 - M86.171) 01/24/2024 Charcot foot due to diabetes mellitus [...] X ray : Foot, right 3V 07/09/2023 [id number] SKIN/TISSUE 12/14/2022 [id number] OF HEMATOMA/FLUID 021 Next Appt Details Provider Name:Cristela polanco, 09/01/2024 04:00:00 PM, [address] [place], [address], Insurance Providers Payer Name Payer Address Payer Phone Subscriber Number Group Number Insured Name Patient Relationship to Insured Coverage Start Date Coverage End Date [facility] [address] [place] [address] [id number] Ramiro Emery Self - patient is the insured Medical (General) History Medical History History ICD Code Diabetes mellitus Chicken pox Charcot right Pick line Surgical History Surgery Date(Month/Year) tonsillectomy tubes in ears colonoscopy wisdom teeth extraction Hospitalization History Reason Date(Month/Year) [facility] [place] - antibiotic reaction 2018
== END 2024-08-19 14:16 | disposition home or self-care (01) ==
LOC: HO.HMCHD 13:57
PROVIDERS: PCP Internal Medicine; Visit Provider Internal Medicine
DX: E11.9 Type 2 diabetes mellitus without complications (principal); E03.9 Hypothyroidism, unspecified

== ENCOUNTER → 2024-08-19 13:56 | Outpatient (BNVA) | payer OTHER, SELFPAY | PROVIDERS: PCP Internal Medicine; Visit Provider Internal Medicine | DX: Z13.89 Encounter for screening for other disorder (principal) ==

== ENCOUNTER 2024-08-20 09:01 | Outpatient (REF) | payer OTHER, SELFPAY ==
--- OUTSIDE RECORDS SUMMARY | 2024-08-20 09:36 | XMS_ITS | Patient Health Record ---
[facility] Address [address] [place] [address] Care Team Providers Care 3D Modeler Name Role Phone Rick Miranda Primary Care Provider Cristela Burnette Unavailable [phone] Allergies Allergen (clinical drug ingredient) Drug/Non Drug [...] Problem Status W/U Status Risk Notes Problem [id number] Other hammer toe(s) (acquired), right foot (M20.41) Active confirmed Problem 96009205 Other hammer toe(s) (acquired), left foot (M20.42) Active confirmed Problem Polyneuropathy due to type 2 diabetes mellitus (991946778) Type 2 diabetes mellitus with diabetic polyneuropathy (E11.42) Active confirmed Problem 244365363 Hammer toe of left foot (M20.42) Active confirmed Problem 80492200 Non-pressure ulcer of right lower extremity, limited to breakdown of skin (L97.911) Active confirmed Problem 818015016 Charcot foot due to diabetes mellitus (E11.610) Active confirmed Problem Neuropathic ulcer of right foot with fat layer exposed (L97.512) Active confirmed Response to treatment Problem [id number] Neuropathic ulcer of right foot, limited to breakdown of skin (L97.511) Active confirmed Problem 385896849 Acute osteomyelitis of toe, right (M86.171) Active confirmed Vital Signs Blood pressure diastolic 82 mm Hg 06/02/2024 Height 6ft2in in 06/02/2024 Blood pressure systolic 134 mm Hg 06/02/2024 Weight 190 lbs 06/02/2024 BMI 24.39 kg/m2 06/02/2024 Encounters Encounter Location Date Provider Diagnosis [address] [address] 09/06/2023 Cristela Burnette Type 2 diabetes mellitus with diabetic polyneuropathy E11.42 ; Acute osteomyelitis of toe, right M86.171 and Charcot foot due to diabetes mellitus E11.[address] [address] 10/23/2023 Cristela Burnette Other hammer toe(s) (acquired), right foot M20.41 ; Other hammer toe(s) (acquired), left foot M20.42 ; Type 2 diabetes mellitus with diabetic polyneuropathy E11.42 ; Charcot foot due to diabetes mellitus E11.610 and Tinea unguium B35.[address] [address] 01/24/2024 Cristela Burnette Other hammer toe(s) (acquired), right foot M20.41 ; Other hammer toe(s) (acquired), left foot M20.42 ; Type 2 diabetes mellitus with diabetic polyneuropathy E11.42 ; Charcot foot due to diabetes mellitus E11.610 ; Tinea unguium B35.1 and Abrasion of right foot, initial encounter S90.[facility]11[facility] [address] 06/02/2024 Cristela Burnette Type 2 diabetes mellitus with diabetic polyneuropathy E11.42 and Charcot foot due to diabetes mellitus E11.[address] [address] 10/15/2023 [facility] [address] 01/28/2024 [facility] [address] 06/01/2024 Cristela Burnette Assessments Encounter Date Diagnosis [...] X ray : Foot, right 3V 07/09/2023 [id number] SKIN/TISSUE 12/14/2022 [id number] OF HEMATOMA/FLUID 021 Next Appt Details Provider Name:Cristela polanco, 09/01/2024 04:00:00 PM, [address] [place], [address], Insurance Providers Payer Name Payer Address Payer Phone Subscriber Number Group Number Insured Name Patient Relationship to Insured Coverage Start Date Coverage End Date [facility] [address] [place] [address] [id number] Ramiro Emery Self - patient is the insured Medical (General) History Medical History History ICD Code Diabetes mellitus Chicken pox Charcot right Pick line Surgical History Surgery Date(Month/Year) tonsillectomy tubes in ears colonoscopy wisdom teeth extraction Hospital[place] History Reason Date([place] [facility] [place]
[2024-08-20 09:43] LABS: Estimated Average Glucose 180 mg/dL; Hemoglobin A1c % 7.9 % (<6.0)
[2024-08-20 10:00] LABS: Cholesterol 196 mg/dL (<200); HDL Cholesterol 33 mg/dL (>40); LDL Cholesterol Calculated 88 mg/dL (<100); Triglycerides 379 mg/dL (<150)
== END 2024-08-20 09:02 | disposition home or self-care (01) ==
LOC: HO.LAB 09:01
PROVIDERS: PCP Internal Medicine; Visit Provider Internal Medicine
DX: E11.9 Type 2 diabetes mellitus without complications (principal); E03.9 Hypothyroidism, unspecified
CPT/HCPCS: 36415; 80061; 83036

== ENCOUNTER 2024-12-07 10:47 | Outpatient (AMB) | payer OTHER, SELFPAY ==
--- OUTSIDE RECORDS SUMMARY | 2024-04-24 07:00 | XMS_ITS ---
Author Organization [facility] Address [address] [place] [address] Care Team Providers Care Publication Specialist Name Role Phone Ruben, Kartik Primary Care Provider [phone] Cristela Burnette Unavailable [phone] Allergies Allergen (clinical drug ingredient) Drug/Non Drug Allergy documented on EMR Reaction Allergy Type Onset Date Status sulfamethoxazole / trimethoprim Bactrim Unknown Drug Allergy Active cefepime Cefepime HCl Unknown Drug Allergy Acti ve daptomycin Daptomycin Unknown Drug Allergy Activ e levofloxacin Levofloxacin Unknown Drug Allergy A ctive Piperacillin Sodium Unknown Drug Allergy Active piperacillin Piperacillin Unknown Drug Allergy A ctive REASON FOR VISIT Dr Carrasquillo Medications Medication SIG (Take, Route, Frequency, Duration) Notes Start Date End Date Status glipiZIDE XL 5 MG 1 tablet with food Orally Once a day; Duration: 30 day(s) Not-Taking Extra Depth Orthopedic Shoes (1 Pair) with Customized Heat Molded Multidensity Innersoles (3 Pair) as directed Dx: NIDDM/Polyneuropathy (E11.42), Hammertoe Foot Deformity (M20.41,M20.42), Preulcerative Skin Lesion(s) (L85.1 07/18/2021 Not-Taking Extra Depth Orthopedic Shoes (1 Pair) with Customized Heat Molded Multidensity Innersoles (3 Pair) as directed Dx: NIDDM/Polyneuropathy (E11.42), Hammertoe Foot Deformity (M20.41,M20.42), Preulcerative Skin Lesion(s) (L85.1 07/26/2020 Not-Taking Extra Depth Orthopedic Shoes (1 Pair) with Customized Heat Molded Multidensity Innersoles (3 Pair) as directed Dx: NIDDM/Polyneuropathy (E11.42), Hammertoe Foot Deformity (M20.41,M20.42), Preulcerative Skin Lesion(s) (L85.1 Not-Taking glipiZIDE 5 MG 1 tablet 30 minutes before breakfast Orally Once a day; Duration: 30 day(s) Not-Taking Ciclopirox Olamine 0.77 % 1 application to affected area Externally to feet Twice a day; Duration: 30 days Not-Taking Cephalexin 500 MG 1 capsule Orally baldev ry 12 hrs; Duration: 10 day(s) Not-Taking Iodosorb 0.9 % as directed External ly Apply to ulceration daily with dry sterile dressing; Duration: 30 days 12/14/2022 Not-Taking Doxycycline Hyclate 100 MG 1 capsule Orally Once a day; Duration: 10 day(s) 08/14/2022 Not-[place]odi ing Clindamy-Benzoyl Per-Niacinam Not-Taking Augmentin 500-125 MG 1 tablet Orally baldev ry 12 hrs; Duration: 7 day(s) 07/15/2023 Not-Taki ng Ammonium Lactate 12 % 1 application Exte rnally Daily to both feet; Duration: 30 days 01/28/2024 Active Extra Depth Orthopedic Shoes (1 Pair) with Customized Heat Molded Multidensity Innersoles (3 Pair) as directed Dx: NIDDM/Polyneuropathy (E11.42), Hammertoe Foot Deformity (M20.41,M20.42), Preulcerative Skin Lesion(s) (L85.1 Active [employer]S Skin Treatment 12 % 1 application Ex ternally Twice a day; Duration: 30 days Active Clindamycin HCl 300 MG 3 capsules Orally every 8 hrs Not-Taking Custom Orthotics as directed 01/15/2023 Active Extra Depth Orthopedic Shoes (1 Pair) with Customized Heat Molded Multidensity Innersoles (3 Pair) as directed Dx: NIDDM/Polyneuropathy (E11.42), Hammertoe Foot Deformity (M20.41,M20.42), Preulcerative Skin Lesion(s) (L85.1 01/15/2023 Active Extra Depth Orthopedic Shoes (1 Pair) with Customized Heat Molded Multidensity Innersoles (3 Pair) as directed Dx: NIDDM/Polyneuropathy (E11.42), Hammertoe Foot Deformity (M20.41,M20.42), Preulcerative Skin Lesion(s) (L85.1 10/16/2022 Active Levothyroxine Sodium 75 MCG 1 tablet in the morning on an empty stomach Orally Once a day Active Pravastatin Sodium 40 MG 1 tablet Orally Once a day; Duration: 30 day(s) Active Lantus 100 UNIT/ML Subcutaneous Active Losartan Potassium 50 MG 1 tablet Orally Once a day; Duration: 30 day(s) Active Terazosin HCl 5 MG 1 capsule at bedtime Orally Once a day Active metFORMIN HCl 500 MG Orally 3 times a day Active HumaLOG 100 UNIT/ML SS as needed Subcutaneous PRN Active Encounters Encounter Location Date Provider Diagnosis [facility] [address] [address] 04/24/2024 Cristela Burnette Plan Of Treatment Next Appt Details Provider Name:Cristela polanco, 12/29/2024 11:00:00 AM, [address] [place] [address], [phone], Progress Notes * EASTONAlek LYkwame FDOB:[birth year] (59 yo M)Acc No.[id number]:04/24/2024 Progress Note Patient: Ramiro LOMBARDI Provider: All Burnette DPM :1965 A ge:58 Y S ex:Male Date:04/24/2024 Address:[address] [place], [place] [id number] Pcp:Rick Miranda Subjective: * Chief Complaints: * [address] Carrasquillo. * Medical History: D iabetes mellitus, Chicken pox, Charcot right, Pick line. * Medications: T aking Terazosin HCl 5 MG Capsule 1 capsule at bedtime Orally Once a day , Taking Losartan Potassium 50 MG Tablet 1 tablet Orally Once a day , Taking Lantus 100 UNIT/ML Solution Subcutaneous , Taking HumaLOG 100 UNIT/ML Solution SS as needed Subcutaneous , Notes to Pharmacist: PRN, Taking metFORMIN HCl 500 MG Tablet Orally 3 times a day , Taking Pravastatin Sodium 40 MG Tablet 1 tablet Orally Once a day , Taking Levothyroxine Sodium 75 MCG Tablet 1 tablet in the morning on an empty stomach Orally Once a day , Taking Extra Depth Orthopedic Shoes (1 Pair) with Customized Heat Molded Multidensity Innersoles (3 Pair) as directed Dx: NIDDM/Polyneuropathy (E11.42), Hammertoe Foot Deformity (M20.41,M20.42), Preulcerative Skin Lesion(s) (L85.1 , Taking Extra Depth Orthopedic Shoes (1 Pair) with Customized Heat Molded Multidensity Innersoles (3 Pair) as directed Dx: NIDDM/Polyneuropathy (E11.42), Hammertoe Foot Deformity (M20.41,M20.42), Preulcerative Skin Lesion(s) (L85.1 , Taking Custom Orthotics as directed , Taking CVS Skin Treatment 12 % Lotion 1 application Externally Twice a day , Taking Extra Depth Orthopedic Shoes (1 Pair) with Customized Heat Molded Multidensity Innersoles (3 Pair) as directed Dx: NIDDM/Polyneuropathy (E11.42), Hammertoe Foot Deformity (M20.41,M20.42), Preulcerative Skin Lesion(s) (L85.1 , Taking Ammonium Lactate 12 % Cream 1 application Externally Daily to both feet , Not-Taking/PRN Augmentin 500-125 MG Tablet 1 tablet Orally every 12 hrs , Not-Taking/PRN Clindamycin HCl 300 MG Capsule 3 capsules Orally every 8 hrs , Not-Taking/PRN Clindamy-Benzoyl Per-Niacinam , Not-Taking/PRN Doxycycline Hyclate 100 MG Capsule 1 capsule Orally Once a day , Not-Taking/PRN Iodosorb 0.9 % Gel as directed Externally Apply to ulceration daily with dry sterile dressing , Not-Taking/PRN Cephalexin 500 MG Capsule 1 capsule Orally every 12 hrs , Not-Taking/PRN Ciclopirox Olamine 0.77 % Cream 1 application to affected area Externally to feet Twice a day , Not-Taking/PRN Extra Depth Orthopedic Shoes (1 Pair) with Customized Heat Molded Multidensity Innersoles (3 Pair) as directed Dx: NIDDM/Polyneuropathy (E11.42), Hammertoe Foot Deformity (M20.41,M20.42), Preulcerative Skin Lesion(s) (L85.1 , Not-Taking/PRN Extra Depth Orthopedic Shoes (1 Pair) with Customized Heat Molded Multidensity Innersoles (3 Pair) as directed Dx: NIDDM/Polyneuropathy (E11.42), Hammertoe Foot Deformity (M20.41,M20.42), Preulcerative Skin Lesion(s) (L85.1 , Not-Taking/PRN Extra Depth Orthopedic Shoes (1 Pair) with Customized Heat Molded Multidensity Innersoles (3 Pair) as directed Dx: NIDDM/Polyneuropathy (E11.42), Hammertoe Foot Deformity (M20.41,M20.42), Preulcerative Skin Lesion(s) (L85.1 , Not-Taking/PRN glipiZIDE XL 5 MG Tablet Extended Release 24 Hour 1 tablet with food Orally Once a day , Not-Taking/PRN glipiZIDE 5 MG Tablet 1 tablet 30 minutes before breakfast Orally Once a day * Allergies: B actrim, Daptomycin, Piperacillin Sodium, Cefepime HCl, Levofloxacin, Piperacillin. Objective: * Vitals: Assessment: Plan: * Treatment: * Images: * The named appointment provid er may or may not be the originator of this progress note, and it is not deemed complete until electronically signed by the appointment provider. Sign off status: Pending * Provider: All Burnette DPM Date: 0 04/24/2024 Generated for Cassi winchester/Gus/Babatunde on: 1 12:58 PM EDT
--- OUTSIDE RECORDS SUMMARY | 2024-06-01 11:30 | XMS_ITS ---
Author Organization [facility] Address [address] [place] [address] Care Team Providers Care Family Services Assistant Name Role Phone Ruben, Kartik Primary Care Provider Cristela Burnette [phone] Allergies Allergen (clinical drug ingredient) Drug/Non Drug Allergy documented on EMR Reaction Allergy Type Onset Date Status sulfamethoxazole / trimethoprim Bactrim Unknown Drug Allergy Active cefepime Cefepime HCl Unknown Drug Allergy Acti ve daptomycin Daptomycin Unknown Drug Allergy Activ e levofloxacin Levofloxacin Unknown Drug Allergy A ctive Piperacillin Sodium Unknown Drug Allergy Active piperacillin Piperacillin Unknown Drug Allergy A ctive Medications Medication SIG (Take, Route, Frequency, Duration) Notes Start Date End Date Status glipiZIDE 5 MG 1 tablet 30 minutes before breakfast Orally Once a day; Duration: 30 day(s) Not-Taking glipiZIDE XL 5 MG 1 tablet [...] day(s) 08/14/2022 Not-Kodi ing Clindamy-Benzoyl Per-Niacinam Not-Taking Clindamycin HCl 300 MG 3 capsules Orally every 8 hrs Not-Taking Augmentin 500-125 MG 1 tablet Orally [...] Twice a day; Duration: 30 days Active Custom Orthotics as directed [...] Once a day; Duration: 30 day(s) Active metFORMIN HCl 500 MG Orally 3 times a day Active HumaLOG 100 UNIT/ML SS as needed Subcutaneous PRN Active Lantus 100 UNIT/ML Subcutaneous Active Losartan Potassium 50 MG 1 tablet Orally Once a day; Duration: 30 day(s) Active Terazosin HCl 5 MG 1 capsule at bedtime Orally Once a day Active Encounters Encounter Location Date Provider Diagnosis [facility] [address] 06/01/2024 Cristela Burnette Plan Of Treatment Next Appt Details Provider Name:Cristela polanco, 12/29/2024 11:00:00 AM, [address] [place] [address], [phone], Progress Notes * Ramiro SNYDER FDOB:[birth year] (59 yo M)Acc No.[id number]:06/01/2024 Progress Note Patient: Ramiro LOMBARID Provider: All Burnette DPM :1965 A ge:58 Y S ex:Male Date:06/01/2024 Address:[address] [place], [place] [id number] Pcp:Rick Miranda Subjective: * Chief Complaints: * * Medical History: D iabetes mellitus, Chicken [...] * Provider: All Burnette DPM Date: 0 06/01/2024 Generated for Cassi winchester/Gus/Babatunde on: 1 12:58 PM EDT
[2024-12-07 08:43] VITALS: BP 150/84; PULSE 88; TEMP 36.5; O2SAT 96; BMI 39.4
--- NOTE | 2024-12-07 08:43 | A.OFFPC_ITS ---
Vital Signs 12/07/24 08:43 12/07/24 11:02 Height 6 ft 2 in Weight 307 lb BMI 39.4 BP 150/84 H 150/82 H Blood Pressure Location Lt brachial Rt brachial Position Sitting Sitting Pulse 88 Pulse Source Pulse Oximeter Temp 97.7 F Temp Source Temporal Artery Scan Pulse Oximetry (%) 96 Oxygen Delivery Method Room Air Intake Visit Reasons: 3 Month F/U Environmental Compliance Inspector Required: No Accompanied by: Self / Same As Patient Allergies cefepime (CEFEPIME) Allergy (Severe, Verified 12/07/24 08:45) HIVES daptomycin (DAPTOMYCIN) Allergy (Severe, Verified 12/07/24 08:45) pulmonary interstitial pneumonitis levofloxacin (LEVOFLOXACIN) Allergy (Intermediate, Verified 12/07/24 08:45) HIVES piperacillin (From ZOSYN) Allergy (Unknown, Verified 12/07/24 08:45) rash Sulfa (Sulfonamide Antibiotics) (SULFA (SULFONAMIDE ANTIBIOTICS)) Allergy (Unknown, Verified 12/07/24 08:45) UNKNOWN tazobactam (From ZOSYN) Allergy (Unknown, Verified 12/07/24 08:45) rash piperacillin Allergy (Unknown, Uncoded 05/13/24 14:23) Unknown Medication List - Last Reconciled 12/07/24 by MICK Dempsey ammonium lactate 12% appl topical BID aspirin (Adult Low Dose Aspirin) 81 mg PO DAILY blood sugar diagnostic (Accu-Chek Khadijah Plus test strips) TEST 4 TIMES A DAY insulin glargine (Lantus U-100 Insulin) 40 units (0.4 mL) subcut BEDTIME 90 days insulin syringe-needle U-100 insulin syringe-needle U-100 inject under skin four time a day insulin syringe-needle U-100 (Easy Touch Insulin Syringe) As directed lancets (FreeStyle Lancets) levothyroxine 112 mcg PO DAILY losartan 50 mg PO DAILY melatonin 5 mg PO BEDTIME metformin 500 mg PO TID Novolog FlexPen U-100 Insulin (insulin aspart U-100) 35 units (0.35 mL) subcut BID 90 days NS pen needle, diabetic 8mm needle As directed three times per day pravastatin 1 tab PO DAILY terazosin 5 mg PO BEDTIME tirzepatide (Mounjaro) 2.5 mg (0.5 mL) subcut QWEEK Tobacco use date assessed: 12/07/24 Dental Screening Dental Screen Date: 12/07/24 Did you have a dental visit in the last 12 months?: Yes Did you have a dental problem in the last 6 months where you did not have access to dental care?: No HPI HPI Comments History of Present Illness Details The patient is a 59-year-old male with DM, HTN, Hypothyroidism, HLD presenting to [facility] care and for for management of chronic conditions. The patient has a history of hypothyroidism managed with levothyroxine 112 mcg. Recent lab work indicated borderline thyroid function, TSH of 4.46. He will need a re-evaluation. The patient has Type 2 Diabetes Mellitus, currently managed with metformin, Lantus 40 units, and short-acting insulin 35 units with lunch and dinner. His blood glucose levels have decreased from 170 mg/dL to 140-150 mg/dL, although they were previously around 120 mg/dL before weight gain. His last A1C was 7.9% in August. He is on Pravastatin. He is not taking aspirin. The patient has hypertension, managed with losartan and terazosin. His blood pressure was slightly elevated during the visit, but no medication adjustments were made. His BP today was 150/84 and 150/82. The patient reports sleep disturbances, characterized by difficulty falling asleep and waking up once nightly to urinate. He has been advised on sleep hygiene practices and is considering melatonin supplementation. The patient experiences nasal congestion, particularly in the right nostril, which is persistent throughout the year. He has been using Flonase intermittently and was advised on proper administration techniques. The patient has a skin tag or possible cutaneous horn near the left nipple, for which a dermatology referral was made. The patient has neuropathy affecting his foot, with numbness but no recent sores since adjustments to his shoe inserts. He has follow up with Podiatry. [facility] Medical History (Updated 12/07/24 @ 15:18 by MICK Dempsey) Acquired hypothyroidism HTN (hypertension) Hyperthyroidism Insomnia Nasal congestion Osteomyelitis Skin tag Type II diabetes mellitus Surgical History History of colonoscopy (~08/26/20) History of tonsillectomy Family History Mother Diabetes Graves disease Pancreatic cancer Father Heart problem Social History Housing: House Alcohol intake: current Alcohol intake frequency: a few times a week Patient Tobacco Use Status: Former Tobacco user Tobacco use type: Cigarette Years Smoked: 5 e-Cigarette/Vaping Use: Former Use service: No Current occupational status: employed Cognitive needs: No Hearing needs: No Vision needs: Yes (rx glasses) Questionnaire PHQ-9 Over the last 2 weeks, how often have you been bothered by any of the following problems? 1. Little interest or pleasure in doing things: not at all 2. Feeling down, depressed, or hopeless: not at all 3. Trouble falling or staying asleep, or sleeping too much: not at all 4. Feeling tired or having little energy: not at all 5. Poor appetite or overeating: not at all 6. Feeling bad about yourself - or that you are a failure or have let yourself or your family down: not at all 7. Trouble concentrating on things, such as reading the newspaper or watching television: not at all 8. Moving or speaking so slowly that other people could have noticed. Or the opposite - being so fidgety or restless that you have been moving around a lot more than usual: not at all 9. Thoughts that you would be better off or of hurting yourself in some way: not at all Total score: 0 Depression Screening Interpretation: Negative Depression Screening Done: Yes Source: Developed by Drs. Casey Ramos, Brigitte Londono, Grant Wilder and colleagues, with an educational kristina from [employer]. Thrive Questionnaire Date Thrive assessed: 12/07/24 I am a: Patient Within the past 12 months, did the food you bought not last and you didn't have the money to get more?: Never true Within the past 12 months, did you worry whether your food would run out before you got money to buy more?: Never true Do you have trouble paying for medicines?: No Do you have trouble getting transportation to medical appointments?: No Do you have trouble paying your heating and electricity bill?: No Do you have trouble taking care of your child, family member or friend?: No Do you have trouble with day-to-day activities such as bathing, preparing meals, shopping, managing finances, etc.?: No Are you currently unemployed and looking for a job?: No Are you interested in more education?: No THRIVE Score: 0 AUDIT C Alcohol Use Questionnaire (AUDIT-C) 1. How often do you have a drink containing alcohol?: Monthly or less 2. How many drinks containing alcohol do you have on a typical day when you are drinking?: 1 or 2 3. How often do you have six or more drinks on one occasion?: Less than monthly Total Score: 2 MICHAEL-7 AMB Questionnaire MICHAEL-7 Date MICHAEL - 7 assessed: 12/07/24 Feeling nervous, anxious, or on edge: 0 = Not at all Not being able to stop or control worryin = Not at all Worrying too much about different things: 0 = Not at all Trouble relaxin = Not at all Being so restless that it is hard to sit still: 0 = Not at all Becoming easily annoyed or irritable: 0 = Not at all Feeling afraid as if something awful might happen: 0 = Not at all Total MICHAEL-7 score (0-4 normal; 5-9 mild; 10-14 moderate; 15-21 severe): 0 Source: Developed by Drs. Casey Ramos, Brigitte Londono, Grant Wilder and colleagues, with an educational kristina from [employer]. Review of Systems Const Details: CONSTITUTIONAL Negative HEAD/NECK Negative EAR/NOSE/MOUTH/THROAT Negative RESPIRATORY Denies dyspnea, reports occasional cough. CARDIOVASCULAR Denies chest pain, palpitations, or syncope. GASTROINTESTINAL Reports occasional diarrhea, denies constipation or heartburn MUSCULOSKELETAL Reports shoulder pain, denies joint swelling. SKIN Reports skin tag near left nipple NEUROLOGICAL Negative PSYCHIATRIC Reports difficulty falling asleep, waking once nightly to urinate Physical exam (Primary Care) Vital Signs: Last Vital Signs Temp 97.7 F 12/07/24 08:43 Pulse 88 12/07/24 08:43 BP 150/82 H 12/07/24 11:02 Pulse Ox 96 12/07/24 08:43 Oxygen Delivery Method Room Air 12/07/24 08:43 BMI result Body Mass Index 39.4 GENERAL Well developed, obese, in no apparent distress HEENT Head-Normocephalic Eyes- PERRLA, EOMI, Conjuctiva clear, lids WNL Ears- Canals clear, TMs WNL Mouth/Throat-No lesions, no erythema, no exudate Neck- Supple, No lymphadenopathy, thyroid WNL RESPIRATORY Normal I:E, Clear to auscultation CARDIOVASCULAR Regular, rate and rhythm, No murmurs or rubs GASTROINTESTINAL Soft, nontender, normal bowel sounds, no masses MUSCULOSKELETAL right shoulder- Full ROM, tender with motion SKIN skin tag near left nipple NEUROLOGICAL Gait normal PSYCHIATRIC Oriented to person, place and time Mood and affect WNL Appearance WNL Speech WNL Thought processes WNL Tobacco/Smoking Status: Tobacco use Status Tobacco use date assessed 12/07/24 12/07/24 08:50 Patient Tobacco Use Status Former Tobacco user 12/07/24 08:50 Tobacco use type Cigarette 12/07/24 08:50 e-Cigarette/Vaping Use Former Use 12/07/24 08:50 PHQ-9: PHQ-9 Score PHQ-9: Total score 0 12/07/24 11:51 Depression Screening Interpretation: Negative Thrive Assessment: Date of Thrive Assessment Date Thrive assessed 12/07/24 12/07/24 08:50 Coding Level of Care Code Established Pt Est Pt Level 4 (36196) Patient Type Established Diagnoses Type II diabetes mellitus E11.9 Acquired hypothyroidism E03.9 HTN (hypertension) I10 Psychophysiological insomnia F51.04 Insomnia type: psychophysiologic Nasal congestion R09.81 Skin tag L91.8 Time Spent (min) 35 Comment Time spent on chart review, medication reconciliation, H&P, patient education, and orders Assessment & Plan Assessment & Plan (1) Type II diabetes mellitus: Code(s): E11.9 - Type 2 diabetes mellitus without complications Category: Medical Plan: The patient is managing Type 2 Diabetes Mellitus with metformin, Lantus, and short-acting insulin. Blood glucose levels have improved but remain higher than desired. The introduction of Mounjaro, a GLP-1 receptor agonist, is being considered to aid in weight loss and further glucose control, pending insurance approval. Will add Aspirin for heart protection. Patient to follow up in 2 months or sooner if symptoms persist or worsen. (2) Acquired hypothyroidism: Code(s): E03.9 - Hypothyroidism, unspecified Category: Medical Plan: The patient is currently on levothyroxine for hypothyroidism. Recent lab results indicated borderline thyroid function, necessitating a re-evaluation of thyroid levels. A follow-up appointment will be scheduled to reassess thyroid function and adjust medication if necessary. Patient will continue current medications. Will monitor. Patient will follow up in 2 months. (3) HTN (hypertension): Comment: BP today was 150/84 Code(s): I10 - Essential (primary) hypertension Category: Medical Plan: The patient's hypertension is managed with losartan and terazosin. Blood pressure was slightly elevated during the visit, but no changes to medication were made. A follow-up appointment will be scheduled to monitor blood pressure and consider adjustments if necessary. (4) Insomnia: Code(s): G47.00 - Insomnia, unspecified Category: Medical Qualifiers: Insomnia type: psychophysiologic Qualified Code(s): F51.04 - Psychophysiologic insomnia Plan: The patient reports difficulty falling asleep and waking once nightly. Recommendations include sleep hygiene practices and the use of melatonin. Further evaluation will be considered if symptoms persist. Patient to follow up in 2 months or sooner if symptoms persist or worsen. (5) Nasal congestion: Code(s): R09.81 - Nasal congestion Category: Medical Plan: The patient experiences persistent nasal congestion, particularly in the right nostril. Flonase has been recommended with instructions on proper administration. Continued use and monitoring of symptoms are advised. (6) Skin tag: Code(s): L91.8 - Other hypertrophic disorders of the skin Category: Medical Plan: The patient has a skin tag or possible cutaneous horn near the left lip. A referral to dermatology has been made for further evaluation and potential removal. Plan During the visit, we discussed the management of the patient's chronic conditions, including diabetes, hypertension, and hypothyroidism. I explained the potential benefits of adding Mounjaro for diabetes management, pending insurance approval. We also reviewed sleep hygiene practices and the use of melatonin for sleep disturbances. A dermatology referral was made for the skin tag, and proper Flonase administration was advised for nasal congestion. Follow- up appointments were scheduled to monitor blood pressure and thyroid function. Orders: Orders Comprehensive Met. Panel Today E11.9 - Type 2 diabetes mellitus without complications, Z79.899 - Other exterminator helper (current) drug therapy Hemoglobin A1c Today E11.9 - Type 2 diabetes mellitus without complications Lipid Panel Today Z13.220 - Encounter for screening for lipoid disorders TSH reflex Free T4 Today E03.9 - Hypothyroidism, unspecified Referrals Dermatology Referral L91.8 - Other hypertrophic disorders of the skin Medications: New tirzepatide (Mounjaro) for 4 weeks 2.5 mg (0.5 mL) subcut QWEEK 2 mL 1RF for diabetes aspirin (Adult Low Dose Aspirin) 81 mg PO DAILY 90 tabs 3RF for heart protection melatonin 5 mg PO BEDTIME 90 caps 0RF for sleep Patient Instructions: - Continue taking all current medications as prescribed. - Follow sleep hygiene practices and consider using melatonin for sleep disturbances. - Use Flonase as directed for nasal congestion. - Attend follow-up appointments for blood pressure and thyroid function mon itoring. - Visit dermatology for evaluation and potential removal of the skin tag.
[2024-12-07 11:02] VITALS: BP 150/82
--- OUTSIDE RECORDS SUMMARY | 2024-12-07 12:58 | XMS_ITS | Patient Health Record ---
[facility] Address [address] [place] [address] Care Team Providers Care Returned Goods Inspector Name Role Phone Rick Miranda Primary Care Provider Cristela Burnette Unavailable [phone] Allergies Allergen (clinical drug ingredient) Drug/Non Drug Allergy documented on EMR Reaction Allergy Type Onset Date Status sulfamethoxazole / trimethoprim Bactrim Unknown Drug Allergy Active cefepime Cefepime HCl Unknown Drug Allergy Acti ve daptomycin Daptomycin Unknown Drug Allergy Activ e levofloxacin Levofloxacin Unknown Drug Allergy A ctive Piperacillin Sodium Unknown Drug Allergy Active piperacillin Piperacillin Unknown Drug Allergy A ctive Results Component Value Reference Range Notes HEMOGLOBIN A1C (GLYCOHEMOGLO BIN) Reviewed date:09/01/2024 04:01:49 PM Interpretation: Performing Lab: Notes/Report: HEMOGLOBIN A1C % (HH) 7.0 Reason For Referral No Information Medications Medication SIG (Take, Route, Frequency, Duration) Notes Start Date End Date Status Cephalexin 500 MG 1 capsule Orally baldev ry 12 hrs; Duration: 10 day(s) Not-Taking Ciclopirox Olamine 0.77 % 1 application to affected area Externally to feet Twice a day; Duration: 30 days Not-Taking Urea 40 % 1 application as nee ded Externally Once a day; Duration: 30 days Active Iodosorb 0.9 % as directed External ly Apply to ulceration daily with dry sterile dressing; Duration: 30 days 12/14/2022 Not-Taking metFORMIN HCl 500 MG Orally 3 times a day Active Extra Depth Orthopedic Shoes (1 Pair) with Customized Heat Molded Multidensity Innersoles (3 Pair) as directed Dx: NIDDM/Polyneuropathy (E11.42), Hammertoe Foot Deformity (M20.41,M20.42), Preulcerative Skin Lesion(s) (L85.1 07/18/2021 Not-Taking Pravastatin Sodium 40 MG 1 tablet Orally Once a day; Duration: 30 day(s) Active glipiZIDE XL 5 MG 1 tablet with food Orally Once a day; Duration: 30 day(s) Not-Taking Terazosin HCl 5 MG 1 capsule at bedtime Orally Once a day Active Extra Depth Orthopedic Shoes (1 Pair) with Customized Heat Molded Multidensity Innersoles (3 Pair) as directed Dx: NIDDM/Polyneuropathy (E11.42), Hammertoe Foot Deformity (M20.41,M20.42), Preulcerative Skin Lesion(s) (L85.1 Not-Taking Losartan Potassium 50 MG 1 tablet Orally Once a day; Duration: 30 day(s) Active Extra Depth Orthopedic Shoes (1 Pair) with Customized Heat Molded Multidensity Innersoles (3 Pair) as directed Dx: NIDDM/Polyneuropathy (E11.42), Hammertoe Foot Deformity (M20.41,M20.42), Preulcerative Skin Lesion(s) (L85.1 07/26/2020 Not-Taking Extra Depth Orthopedic Shoes (1 Pair) with Customized Heat Molded Multidensity Innersoles (3 Pair) as directed Dx: NIDDM/Polyneuropathy (E11.42), Hammertoe Foot Deformity (M20.41,M20.42), Preulcerative Skin Lesion(s) (L85.1 01/15/2023 Active Custom Orthotics as directed 01/15/2023 Active Levothyroxine Sodium 75 MCG 1 tablet [...] (M20.41,M20.42), Preulcerative Skin Lesion(s) (L85.1 10/16/2022 Active [facility] Skin Treatment 12 % 1 application Ex ternally Twice a day; Duration: 30 days Active Extra Depth Orthopedic Shoes (1 Pair) with Customized Heat Molded Multidensity Innersoles (3 Pair) as directed Dx: NIDDM/Polyneuropathy (E11.42), Hammertoe Foot Deformity (M20.41,M20.42), Preulcerative Skin Lesion(s) (L85.1 Active Lantus 100 UNIT/ML Subcutaneous Not-Taking HumaLOG 100 UNIT/ML SS as needed Subcutaneous PRN Not-Taking Insulin Lispro (1 Unit Dial) 100 UNIT/ML INJECT 25 UNITS (0.25 ML) SUBCUTANEOUSLY 2 TIMES A DAY FOR 90 DAYS Subcutaneous; Duration: 90 Days Active Insulin Glargine-yfgn 100 UNIT/ML Subcutaneous; Duration: 90 Days Active Clindamy-Benzoyl Per-Niacinam Not-Taking Doxycycline Hyclate 100 MG 1 capsule Orally Once a day; Duration: 10 day(s) 08/14/2022 Not-Kodi ing Augmentin 500-125 MG 1 tablet Orally baldev ry 12 hrs; Duration: 7 day(s) 07/15/2023 Not-Taki ng Clindamycin HCl 300 MG 3 capsules Orally every 8 hrs Not-Taking Immunizations Vaccine Route Administration Date Status Comme nts Influenza Unknown 11/03/2018 Administered Influenza Unknown 11/03/2019 Administered Influenza Unknown 11/15/2021 Administered Influenza Unknown 01/02/2023 Administered Influenza Unknown 11/03/2023 Administered COVID-19 Moderna Vaccine Unknown 12/23/2020 Administered First Dose: 04/27/20 Second Dose: 05/25/2020 Social History Tobacco Use: Social History Observation [...] Problem Status W/U Status Risk Notes Problem Acquired hammer toe of lesser toe of right foot (0115228001812085 8) Other hammer toe(s) (acquired), right foot (M20.41) Active confirmed Problem Acquired hammer toe of lesser toe of left foot (2430560402172181 3) Other hammer toe(s) (acquired), left foot (M20.42) Active confirmed Problem Polyneuropathy due to type 2 diabetes mellitus (539443934) Type 2 diabetes mellitus with diabetic polyneuropathy (E11.42) Active confirmed Problem Arthropathy due to endocrine disorder (185050729434454) Charcot foot due to diabetes mellitus (E11.610) Active confirmed Vital Signs Blood pressure diastolic 80 mm Hg 09/01/2024 Height 6ft2in in 09/01/2024 Blood pressure systolic 132 mm Hg 09/01/2024 Weight 294 lbs 09/01/2024 BMI 37.74 kg/m2 09/01/2024 Encounters Encounter Location Date Provider Diagnosis [address] [address] 01/24/2024 Cristela Burnette Other hammer toe(s) (acquired), right foot M20.41 ; Other hammer toe(s) (acquired), left foot M20.42 ; Type 2 diabetes mellitus with diabetic polyneuropathy E11.42 ; Charcot foot due to diabetes mellitus E11.610 ; Tinea unguium B35.1 and Abrasion of right foot, initial encounter S90.811A [address] [address] 06/02/2024 Cristela Burnette Type 2 diabetes mellitus with diabetic polyneuropathy E11.42 and Charcot foot due to diabetes mellitus E11.[address] [address] 09/01/2024 Cristela Burnette Type 2 diabetes mellitus with diabetic polyneuropathy E11.42 ; Charcot foot due to diabetes mellitus E11.610 and Xerosis cutis L85.[address] [address] 01/28/2024 Cristela Burnette [address] [address] 06/01/2024 Cristela Burnette Assessments Encounter Date Diagnosis (ICD Code) Assessment Notes Treatment Notes Treatment Clinical Notes Section Notes 01/24/2024 Other hammer toe(s) (acquired), right foot (ICD-10 - M20.41) 01/24/2024 Other hammer toe(s) (acquired), left foot (ICD-10 - M20.42) 09/01/2024 Type 2 diabetes mellitus with diabetic polyneuropathy (ICD-10 - E11.42) 09/01/2024 Charcot foot due to diabetes mellitus (ICD-10 - E11.610) 06/02/2024 Type 2 diabetes mellitus with diabetic polyneuropathy (ICD-10 - E11.42) 06/02/2024 Charcot foot due to diabetes mellitus (ICD-10 - E11.610) 09/01/2024 Xerosis cutis (ICD-10 - L85.3) 01/24/2024 Type 2 diabetes mellitus with diabetic polyneuropathy (ICD-10 - E11.42) 01/24/2024 Charcot foot due to diabetes mellitus (ICD-10 - E11.610) 01/24/2024 Tinea unguium (ICD-10 - B35.1) 01/24/2024 Abrasion of right foot, initial encounter (ICD-10 - S90.811A) Plan Of Treatment Pending Test Test Name Order Date MRI : Foot, right 07/09/2023 *Wound Culture 08/13/2022 X ray : Foot, right 3V 02/17/2019 X ray : Foot, right 3V 04/03/2022 X ray : Foot, right 3V 12/14/2022 X ray : Foot, right 3V 07/09/2023 [id number] SKIN/TISSUE 12/14/2022 [id number] OF HEMATOMA/FLUID 021 Next Appt Details Provider Name:Cristela polanco, 12/29/2024 11:00:00 AM, [address] [place], [address], Insurance Providers Payer Name Payer Address Payer Phone Subscriber Number Group Number Insured Name Patient Relationship to Insured Coverage Start Date Coverage End Date [facility] [address] [place] [address] [id number] Ramiro Emery Self - patient is the insured Medical (General) History Medical History History ICD Code Diabetes mellitus Chicken pox Charcot right Pick line Surgical History Surgery Date(Month/Year) tonsillectomy tubes in ears colonoscopy wisdom teeth extraction Hospitalization History Reason Date(Month/Year) [facility] - antibiotic reaction 2018
--- OUTSIDE RECORDS SUMMARY | 2024-12-07 12:59 | XMS_ITS | Patient Health Record ---
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 THREE TIMES A DAY DIRECTED Oral for [...] Problem Status W/U Status Risk Notes Problem [id number] Encounter for screening for malignant neoplasm of colon (Z12.11) Active confirmed Problem [id number] Preprocedural examination (Z01.818) Active confirmed Problem Diverticulosis of sigmoid colon (683318509) Diverticulosis of sigmoid colon (K57.30) Active confirmed Plan Of Treatment Pending Test Test Name Order Date Pathology 08/26/2020 Future Test Test Name Order Date COLONOSCOPY 08/05/2020 Insurance Providers Payer Name Payer Address Payer Phone Subscriber Number Group Number Insured Name Patient Relationship to Insured Coverage Start Date Coverage End Date [facility] [address] [place] [phone] [id number] 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 Fortune Hyperlipidemia Denies AL,CVA,Lung disease,renal disease Kidney stones Hypothyroidism Surgical History Surgery Date(Month/Year) Tonsillectomy Debridement of infections on his feet as above
== END 2024-12-07 11:38 | disposition home or self-care (01) ==
LOC: HO.HMCHD 10:48
PROVIDERS: PCP Internal Medicine; Visit Provider Physician Assistant Medical
DX: E11.9 Type 2 diabetes mellitus without complications (principal); E03.9 Hypothyroidism, unspecified; I10 Essential (primary) hypertension; F51.04 Psychophysiologic insomnia; R09.81 Nasal congestion; L91.8 Other hypertrophic disorders of the skin

== ENCOUNTER 2024-12-07 11:46 | Outpatient (REF) | payer OTHER, SELFPAY ==
[2024-12-07 14:04] LABS: Hemoglobin A1C 227.6491 umol/L; Total Hemoglobin (HGBA1C) 4121.8659 umol/L
[2024-12-07 14:22] LABS: Alanine Aminotransferase 39 U/L (0-40); Albumin Level 4.5 g/dL (3.5-5.0); Alkaline Phosphatase 52 U/L (39-117); Anion Gap 12 (12-20); Aspartate Amino Transferase 35 U/L (5-37); Blood Urea Nitrogen 19 mg/dL (9-16); Calcium 9.4 mg/dL (8.4-10.2); Carbon Dioxide 28 mmol/L (22-29); Chloride 106 mmol/L (96-108); Cholesterol 169 mg/dL (<200); Estimated Glomerular Filt Rate > 60; HDL Cholesterol 33 mg/dL (>40); Potassium 4.6 mmol/L (3.3-5.1); Sodium 141 mmol/L (135-145); Total Protein 7.1 g/dL (6.5-8.0); Triglycerides 250 mg/dL (<150)
[2024-12-07 14:55] LABS: Free T4 (Free Thyroxine) 1.02 ng/dL (0.71-1.85)
== END 2024-12-07 11:47 | disposition home or self-care (01) ==
LOC: HO.10HDL 11:46
PROVIDERS: Visit Provider Physician Assistant Medical
DX: Z13.220 Encounter for screening for lipoid disorders (principal); E11.9 Type 2 diabetes mellitus without complications; E03.9 Hypothyroidism, unspecified; Z79.899 Other long term (current) drug therapy
CPT/HCPCS: 36415; 80053; 80061; 83036; 84439; 84443

== ENCOUNTER 2025-02-01 13:15 | Outpatient (REF) | payer OTHER, SELFPAY ==
[2025-02-01 15:27] LABS: Free T4 (Free Thyroxine) 1.02 ng/dL (0.71-1.85)
== END 2025-02-01 13:16 | disposition home or self-care (01) ==
LOC: HO.LAB 13:15
PROVIDERS: PCP Physician Assistant Medical; Visit Provider Physician Assistant Medical
DX: E11.9 Type 2 diabetes mellitus without complications (principal); E03.9 Hypothyroidism, unspecified
CPT/HCPCS: 36415; 82947; 83036; 84439; 84443

== ENCOUNTER 2025-02-09 10:04 | Outpatient (AMB) | payer OTHER, SELFPAY ==
[2025-02-09 10:09] VITALS: BP 140/80; PULSE 103; TEMP 36.2; O2SAT 98; BMI 39.5
--- NOTE | 2025-02-09 10:09 | MHC.PC.OV ---
Vital Signs 02/09/25 10:09 Height 6 ft 2 in Weight 308 lb BMI 39.5 BP 140/80 H Blood Pressure Location Lt brachial Position Sitting Pulse 103 H Pulse Source Pulse Oximeter Temp 97.2 F Temp Source Temporal Artery Scan Pulse Oximetry (%) 98 Oxygen Delivery Method Room Air Intake Visit Reasons: 2 months follow up Material Handling Technician Required: No Accompanied by: Self / Same As Patient Allergies cefepime (CEFEPIME) Allergy (Severe, Verified 02/09/25 10:11) HIVES daptomycin (DAPTOMYCIN) Allergy (Severe, Verified 02/09/25 10:11) pulmonary interstitial pneumonitis levofloxacin (LEVOFLOXACIN) Allergy (Intermediate, Verified 02/09/25 10:11) HIVES piperacillin (From ZOSYN) Allergy (Unknown, Verified 02/09/25 10:11) rash Sulfa (Sulfonamide Antibiotics) (SULFA (SULFONAMIDE ANTIBIOTICS)) Allergy (Unknown, Verified 02/09/25 10:11) UNKNOWN tazobactam (From ZOSYN) Allergy (Unknown, Verified 02/09/25 10:11) rash piperacillin Allergy (Unknown, Uncoded 05/13/24 14:23) Unknown Medication List - Last Reconciled 02/22/25 by MICK Dempsey ammonium lactate 12% appl topical BID aspirin (Adult Low Dose Aspirin) 81 mg PO DAILY blood sugar diagnostic (Accu-Chek Khadijah Plus test strips) TEST 4 TIMES A DAY insulin glargine (Lantus U-100 Insulin) 40 units (0.4 mL) subcut BEDTIME 90 days insulin syringe-needle U-100 insulin syringe-needle U-100 inject under skin four time a day insulin syringe-needle U-100 (Easy Touch Insulin Syringe) As directed lancets (FreeStyle Lancets) levothyroxine (Levoxyl) 125 mcg PO DAILY losartan 100 mg PO DAILY melatonin 5 mg PO BEDTIME metformin 500 mg PO TID Novolog FlexPen U-100 Insulin (insulin aspart U-100) 35 units (0.35 mL) subcut BID 90 days NS pen needle, diabetic 8mm needle As directed three times per day pravastatin 1 tab PO DAILY terazosin 5 mg PO BEDTIME 90 days tirzepatide (Mounjaro) 2.5 mg (0.5 mL) subcut QWEEK Tobacco use date assessed: 02/09/25 Dental Screening Dental Screen Date: 02/09/25 Did you have a dental visit in the last 12 months?: Yes Did you have a dental problem in the last 6 months where you did not have access to dental care?: No HPI HPI Comments History of Present Illness Details History of Present Illness The patient is a 59 year old male with DM, HTN, Hypothyroidism, HLD presenting for a follow-up visit for management of chronic conditions including type 2 diabetes mellitus, hypothyroidism, hypertension, and obesity. Regarding his diabetes, recent labs show a blood glucose of 161 mg/dL and a hemoglobin A1c of 6.3%, which is an improvement. He is currently taking Mounjaro 2.5 mg and reports having no side effects. He notes a small amount of weight loss, though mentions the holidays have been a factor. His hypothyroidism has been monitored, with a recent TSH level of 5.0 or 4.7, down from a previous 6.8. For hypertension, he is on losartan 100 mg and terazosin. His blood pressure was noted to be slightly elevated during the visit. He had a follow-up with a stapler machine for a skin lesion, which was removed and confirmed to be benign. Medical History: - Type 2 Diabetes Mellitus - Hypothyroidism - Hypertension Surgical History: - Removal of a benign skin lesion described as a collection of blood vessels Medications: - Mounjaro 2.5 mg for type 2 diabetes and weight loss - Losartan 100 mg for hypertension - Terazosin for hypertension - Thyroid medication (dose not specified) for hypothyroidism Health Maintenance - Blood glucose: 161 mg/dL - Hemoglobin A1c: 6.3% - TSH: 5.0 or 4.7, improved from 6.8 Social History - Weight Management: The patient has experienced some weight loss. Results - Labs: - Blood glucose: 161 mg/dL - Hemoglobin A1c: 6.3% - TSH: 5.0 or 4.7 (previously 6.8) Patient was informed and verbally consented to the use of an ambient scribe for clinic note documentation during this visit. [facility] Medical History (Updated 02/22/25 @ 00:53 by MICK Dempsey) Acquired hypothyroidism HTN (hypertension) Hyperthyroidism Insomnia Nasal congestion Obesity (BMI 30-39.9) Osteomyelitis Skin tag Type II diabetes mellitus Surgical History History of colonoscopy (~08/26/20) History of tonsillectomy Family History Mother Diabetes Graves disease Pancreatic cancer Father Heart problem Social History Housing: House Alcohol intake: current Alcohol intake frequency: a few times a week Patient Tobacco Use Status: Former Tobacco user Tobacco use type: Cigarette Years Smoked: 5 e-Cigarette/Vaping Use: Former Use service: No Current occupational status: employed Cognitive needs: No Hearing needs: No Vision needs: Yes (rx glasses) Questionnaire Thrive Questionnaire Date Thrive assessed: 12/07/24 AUDIT C Alcohol Use Questionnaire (AUDIT-C) 2. How many drinks containing alcohol do you have on a typical day when you are drinking?: 1 or 2 3. How often do you have six or more drinks on one occasion?: Never Total Score: 0 MICHAEL-7 AMB Questionnaire MICHAEL-7 Date MICHAEL - 7 assessed: 12/07/24 Source: Developed by Drs. Casey Ramos, Brigitte Londono, Grant Wilder and colleagues, with an educational krsitina from [employer]. Review of Systems Narrative Review of Systems - General: Reports slight weight loss. - Gastrointestinal: Denies significant side effects like nausea, vomiting, or constipation from Mounjaro. - Nose: Reports improvement in nasal symptoms. Physical exam (Primary Care) Vital Signs: Last Vital Signs Temp 97.2 F 02/09/25 10:09 Pulse 103 H 02/09/25 10:09 BP 140/80 H 02/09/25 10:09 Pulse Ox 98 02/09/25 10:09 Oxygen Delivery Method Room Air 02/09/25 10:09 BMI result Body Mass Index 39.5 GENERAL Well developed, obese, in no apparent distress HEENT Head-Normocephalic Eyes- PERRLA, EOMI, Conjuctiva clear, lids WNL Ears- Canals clear, TMs WNL Mouth/Throat-No lesions, no erythema, no exudate Neck- Supple, No lymphadenopathy, thyroid WNL RESPIRATORY Normal I:E, Clear to auscultation CARDIOVASCULAR Regular, rate and rhythm, No murmurs or rubs GASTROINTESTINAL Soft, nontender, normal bowel sounds, no masses MUSCULOSKELETAL right shoulder- Full ROM, tender with motion NEUROLOGICAL Gait normal PSYCHIATRIC Oriented to person, place and time Mood and affect WNL Appearance WNL Speech WNL Thought processes WNL Tobacco/Smoking Status: Tobacco use Status Tobacco use date assessed 02/09/25 02/09/25 10:18 Patient Tobacco Use Status Former Tobacco user 02/09/25 10:11 Tobacco use type Cigarette 02/09/25 10:11 e-Cigarette/Vaping Use Former Use 02/09/25 10:11 Thrive Assessment: Date of Thrive Assessment Date Thrive assessed 12/07/24 02/09/25 10:11 Coding Level of Care Code Established Pt Est Pt Level 4 (07567) Established Pt Add On Problem Visit Only Patient Type Established Diagnoses HTN (hypertension) I10 Type II diabetes mellitus E11.9 Acquired hypothyroidism E03.9 Obesity (BMI 30-39.9) E66.9 Time Spent (min) 35 Comment Time spent on chart review, H&P, Patient education and orders. Assessment & Plan Assessment & Plan (1) HTN (hypertension): Comment: BP today was =140/80 Code(s): I10 - Essential (primary) hypertension Category: Medical (2) Type II diabetes mellitus: Comment: A1C was 6.3% Code(s): E11.9 - Type 2 diabetes mellitus without complications Category: Medical (3) Acquired hypothyroidism: Comment: TSH was 4.87 Code(s): E03.9 - Hypothyroidism, unspecified Category: Medical (4) Obesity (BMI 30-39.9): Comment: BMI was 39.5 Code(s): E66.9 - Obesity, unspecified Category: Medical Plan Plan Patient was informed and verbally consented to the use of an ambient scribe for clinic note documentation during this visit. 1. Type 2 Diabetes Mellitus Recent labs show improvement with an A1c of 6.3%. The patient is tolerating Mounjaro 2.5 mg without issues. To further improve glycemic control and promote weight loss, the plan is to increase Mounjaro to 5 mg after he finishes his current supply. He was instructed to call for the new prescription when he has one dose left. 2. Hypertension The patient's blood pressure remains slightly elevated despite being on losartan 100 mg and terazosin. He is at the maximum dose for his current medications. Instead of adding a third medication, the plan is to monitor his blood pressure, with the expectation that it may improve with weight loss from the increased Mounjaro dose. 3. Obesity The patient has had some weight loss on Mounjaro 2.5 mg. The plan is to increase the Mounjaro dose to 5 mg to enhance weight loss. Dose adjustments will be considered every couple of months as long as side effects are tolerable. 4. Follow-Up The patient will follow up in approximately three months to reassess his conditions. 5. Subclinical Hypothyroidism The patient's TSH level has improved, decreasing from 6.8 to 4.7-5.0. Although still slightly elevated, it is trending in the right direction. The current thyroid medication dose will be continued, and his TSH will be rechecked in three to four months. Discussion Notes I reviewed the lab results with the patient, noting the improvement in his A1c to 6.3% and TSH to 4.7-5.0. I explained that while his TSH is still slightly high, it's moving in the right direction, so we will continue his current thyroid medication dose and recheck in three to four months. We discussed increasing his Mounjaro from 2.5 mg to 5 mg to facilitate further weight loss and improve glycemic control, as he has tolerated the current dose well. I advised him to finish his current supply and call for the higher dose prescription when he has one pen left. I also discussed potential side effects of Mounjaro, such as nausea, vomiting, and constipation, and advised him to inform me if they become severe. Regarding his elevated blood pressure, I explained that I prefer to wait and see if it improves with weight loss rather than adding a third medication, as he is already on maximum doses of his current agents. We agreed to monitor it for now. The patient confirmed his recent skin lesion removal was benign. A follow-up appointment was scheduled for three months. Patient Instructions - Continue taking your thyroid medication at the current dose. We will recheck your thyroid levels in about three to four months. - Finish your current supply of Mounjaro 2.5 mg. When you are down to your last shot, please call our office to get a new prescription for Mounjaro 5 mg. - Let us know if you experience any bad nausea, vomiting, or constipation after starting the higher dose of Mounjaro. - Continue taking your current blood pressure medications. We will continue to monitor your blood pressure. - Schedule a follow-up appointment for about three months from now.
== END 2025-02-09 10:40 | disposition home or self-care (01) ==
LOC: HO.HMCHD 10:04
PROVIDERS: PCP Physician Assistant Medical; Visit Provider Physician Assistant Medical
DX: I10 Essential (primary) hypertension (principal); E11.9 Type 2 diabetes mellitus without complications; E03.9 Hypothyroidism, unspecified; E66.9 Obesity, unspecified